=== PATIENT | female | born 1995 | race Caucasian/White ===

== ENCOUNTER 2016-10-14 21:33 | Inpatient (IN) | payer OTHER ==
[~2016-10-14] VITALS: Ht 157.5 cm; Wt 102.5 kg
[~2016-10-14 21:33] MED LIST: ADVIN25050 INH; ALBU0.08 INH; ALBUAER INH; MONT1TAB3 PO
[2016-10-14] MEDS ORDERED: ALBUT/IPRATROP 3MG/0.5MG NEB 3 ML VIAL INH STA (21:51)
[2016-10-14] MEDS ORDERED: ALBUT/IPRATROP 3MG/0.5MG NEB 3 ML VIAL ONE (21:52)
[2016-10-14] MEDS ORDERED: DEXAMETHASONE SOD INJ 10 MG/ML VIAL ONE (21:52)
[2016-10-14] MEDS ORDERED: ALBUT/IPRATROP 3MG/0.5MG NEB 3 ML VIAL INH ONE (22:00)
[2016-10-14] MEDS ORDERED: DEXAMETHASONE SOD INJ 10 MG/ML VIAL IV ONE (22:00)
[2016-10-14 22:06] VITALS: PULSE 94; O2SAT 97
[2016-10-14] MEDS ORDERED: VNTHFA/IN INH (23:09)
[2016-10-14] MEDS ORDERED: MONT1TAB3 PO (23:09)
[2016-10-14] MEDS ORDERED: ALBINS/ INH (23:09)
[2016-10-14] MEDS ORDERED: VITAMIN B PO (23:09)
[2016-10-14] MEDS ORDERED: ASCO1CAP3 PO (23:09)
[2016-10-14] MEDS ORDERED: ECHI80CA PO (23:09)
[2016-10-15] VITALS (10 sets, daily range): BP systolic 109–146; BP diastolic 69–84; PULSE 100–120; TEMP 36.5–37; O2SAT 92–98; Ht 157.5 cm; Wt 102.5 kg
[2016-10-15] MEDS ORDERED: CEFTRIAXONE SOD INJ 1 GM ADDVIAL IV STA (00:05)
[2016-10-15] MEDS ORDERED: AZITHROMYCIN 250 MG TAB PO STA (00:05)
[2016-10-15] MEDS ORDERED: MAGNESIUM SULFATE 1GM / D5W 1 GM BAG IV STA (00:05)
[2016-10-15 00:16] LABS: BASO % 0.1 %; BASO ABS # 0.01 K/uL (0-0.2); COMPLETE YES; EOS % 7.1 %; HEMATOCRIT 35.4 % (37-47); IG% 0.3 %; LYMPH % 18.2 %; LYMPH ABS # 2.24 K/uL (1.2-3.4); MEAN CELL VOLUME 72.8 fL (80-100); MEAN CORPUSCULAR HEMOGLOBIN 22.8 pg (25-34); MEAN CORPUSCULAR HGB CONC 31.4 g/dl (32-36); MEAN PLATELET VOLUME 9.5 fL (7.4-10.4); MONO % 4.1 %; NEUT % 70.2 %; PLATELET COUNT 246 K/uL (130-400); RED BLOOD COUNT 4.86 M/uL (4.2-5.4); WHITE BLOOD COUNT 12.32 K/uL (4.8-10.8)
[2016-10-15] MEDS ORDERED: ONDANSETRON INJ 2 MG/ML 2 ML VIAL IV PRN (00:30)
[2016-10-15] MEDS ORDERED: ACETAMINOPHEN 325 MG TAB PO PRN (00:30)
--- NOTE | 2016-10-15 00:32 | History and Physical ---
History & Physical Date & Time of Service: Oct 15, 2016 at 00:19 Chief Complaint: Trouble Breathing Primary Care Physician: No Doctor, Assigned History of Present Illness Source: patient, partner Harry is a 21 yo asthmatic female who presents w/shortness of breath x 1 week. She denies any coughs, fevers, or other infective signs prior to this. 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 She takes Albuterol as needed and occasionally takes Singulair. She denies taking Flovent. She reports she has been using a nebulizer machine at home over the last week. She has previously had asthma exacerbations which have admitted her into the hospital, but she has never been intubated. 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 Her boyfriend smokes, but tries to smoke outside. While in the ED, she was given Magnesium, an hour long Duoneb tx, a dose of Zithromax, and felt somewhat better. Her oxygen sats when ambulating dropped to 86%. At rest they go up to 96%, but when talking drop to 92%. She also sleeps with her cat on her chest. Past Medical/Surgical History Medical Problems: (1) ACL tear Status: Resolved (2) Asthma Status: Chronic (3) Failure of outpatient treatment Status: Resolved Family History Diabetes mellitus Hypertension Social History Smoking Status: Never Smoker Smokeless Tobacco Use: No Alcohol Use: socially Drug Use: none Marital Status: single, in relationship Occupational Status: [employer] student Immunizations History of Influenza Vaccine: Unknown History of Tetanus Vaccine?: Unknown History of Pneumococcal: Unknown History of Hepatitis B Vaccine: Unknown Multi-Drug Resistant Organisms History of MDRO: No Allergies Coded Allergies: Penicillins (Unverified Adverse Reaction, Unknown, UNKN, 12/22/14) Home Medications Scheduled Ascorbic Acid (Vitamin C), 1 TAB PO DAILY Echinacea (Echinacea), 1 TAB PO DAILY [Vitamin B], 1 TAB PO DAILY Scheduled PRN Albuterol Hfa (Ventolin Hfa), 2 PUFF INH QID PRN for SOB/Wheezing Albuterol Sulf (Proventil 0.083% 2.5MG/3ML), 2.5 MG INH QID PRN for SOB/Wheezing Montelukast Sodium (Singulair), 10 MG PO DAILY PRN for ALLERGIC REACTION Review of Systems See HPI for pertinent positives & negatives. A total of 10 systems reviewed and were otherwise negative. Physical Exam Vital Signs Date Time Temp Pulse Resp B/P (MAP) Pulse Ox O2 Delivery O2 Flow Rate FiO2 10/14/16 23:36 93 Room Air 10/14/16 23:35 86 Room Air 10/14/16 22:35 90 20 100 Nebulizer 10/14/16 22:30 92 Room Air 10/14/16 22:09 98 10/14/16 22:09 92 Room Air 10/14/16 22:06 94 33 97 Room Air 10/14/16 21:35 36.4 106 20 152/102 99 Room Air General Appearance: WD/WN, no apparent distress, + obese Head: normocephalic, atraumatic Eyes: normal inspection, PERRL ENT: hearing grossly normal Neck: supple, no JVD Respiratory/Chest: + wheezing (throughout entire chest) Cardiovascular: regular rate, rhythm, no murmur, normal peripheral pulses Abdomen/GI: normal bowel sounds, non tender, soft Back: no CVA tenderness, no muscle spasm Extremities/Musculoskelatal: no calf tenderness, no pedal edema Neurologic/Psych: alert, normal mood/affect, normal reflexes, oriented x 3 Skin: no rash Diagnostics Laboratory Results Results Past 24 Hours Test 10/15/16 00:00 Range/Units White Blood Count 12.32 4.8-10.8 K/uL Red Blood Count 4.86 4.2-5.4 M/uL Hemoglobin 11.1 12.0-16.0 g/dL Hematocrit 35.4 37-47 % Mean Corpuscular Volume 72.8 80-100 fL Mean Corpuscular Hemoglobin 22.8 25-34 pg Mean Corpuscular Hemoglobin Concent 31.4 32-36 g/dl Platelet Count 246 130-400 K/uL Mean Platelet Volume 9.5 7.4-10.4 fL Neutrophils (%) (Auto) 70.2 % Lymphocytes (%) (Auto) 18.2 % Monocytes (%) (Auto) 4.1 % Eosinophils (%) (Auto) 7.1 % Basophils (%) (Auto) 0.1 % Neutrophils # (Auto) 8.65 1.4-6.5 K/uL Lymphocytes # (Auto) 2.24 1.2-3.4 K/uL Monocytes # (Auto) 0.51 0.11-0.59 K/uL Eosinophils # (Auto) 0.87 0-0.5 K/uL Basophils # (Auto) 0.01 0-0.2 K/uL RDW Standard Deviation 40.5 36.4-46.3 fL RDW Coefficient of Variation 15.1 11.5-14.5 % Immature Granulocyte % (Auto) 0.3 % Immature Granulocyte # (Auto) 0.04 0.00-0.02 K/uL other (mild bibasilar fullness. no consolidation.) Impression Assessment and Plan 21 yo F with acute asthma exacerbation - precipitating factors could be secondary smoke inhalation vs viral exposure from work. Acute asthma exacerbation - Duonebs q3h - Received dexamethasone in ED, will change to IV Solu-Medrol overnight then switch to PO steroids in AM - Likely needs escalating of her home regime to include Flovent - Needs an Rx for a new nebulizer, her old one is from when she was a kid - Pulmicort nebules Leukocytosis - Received a dose of Azithromyicn in ED - Will check a Procalcitonin prior to further Abx admin VTE: Lovenox Code status: Full Dispo: Tele Attending Addendum: I have physically seen and examined this patient, have supervised the medical residents activities, and agree with the H&P as noted above with the following exceptions as noted. The patient denies chest pain, palpitations, cough, lower extremity swelling, vision change, hearing change, sore throat, fevers, chills, sweats, fatigue, nausea, vomiting, abdominal pain, pelvic pain, blood in urine or stool, dysuria , urinary frequency or urgency, lightheadedness, dizziness, headache, memory loss, rash, abnormal bruising or bleeding, imbalance, focal or generalized weakness, numbness or tingling in arms or legs, arthralgias or myalgias, back or neck pain, night sweats, or allergy symptoms. The review of systems is otherwise negative other than for that already noted above, and at least 10 systems have been reviewed. The patient is awake, well-developed and adequately nourished, alert and oriented 3, normocephalic and atraumatic, lying in bed and in no acute distress. HEENT--PERRL, EOMI, mucous membranes and oropharynx dry. Neck--supple, no JVD or bruits, thyroid normal, trachea midline, no adenopathy. Heart--normal S1 and S2, no extra beats, no murmurs, rubs or gallops. Lungs--decreased breath sounds on inspiration, with prolonged expiratory low level wheeze, no respiratory distress, no accessory muscle use. Abdomen--normal bowel sounds and soft, nontender and nondistended, no hernias or masses, no organomegaly and mildly obese. Extremities--no cyanosis, clubbing or edema. There are good distal pulses b/l. Dermatologic--normal skin turgor, normal color, warm and dry, no abnormal lymph nodes, no rash. Neurologic--cranial nerves II through XII grossly intact, motor and sensory examination normal. Rheumatologic--normal range of motion, nontender, muscles and joints. Psychiatric--normal affect. Assessment and Plan: 1. Asthma exacerbation--the patient will be admitted to the telemetry unit for close oxygen monitoring. Place on duonebs every 3 hours while awake and every 2 hours when necessary. IV Solu-Medrol tonight, then changed to by mouth prednisone in the morning. Recommend new home nebulizer unit since her present one is very old, yellowed, from her childhood. Place on Pulmicort Respules 0.5 mg inhaled twice a day. Recommend home nebulizer combination of Pulmicort Respules 0.5 mg inhaled twice a day and albuterol nebulizers every 2 hours when necessary. She did receive a dose of azithromycin IV and emergency department. This would not want to be an infectious process. She does sleep with her cat on her chest, which she does not want to stop, so therefore did recommend continued use of Zyrtec ,which she had been using but stopped when she ran out, or Xyzal. 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 Y/N: Yes Risk Level: Moderate Given or contraindicated: SCD's Social Service Consult None Apply Resident Tracking Resident Involvement: Resident Care Provided Care Provided: Adult Hospital Medicine
--- NOTE | 2016-10-15 00:35 | EMERGENCY ROOM VISIT NOTE ---
History First contact with patient: 21:45 Chief Complaint: RESPIRATORY PROBLEMS Stated Complaint: TROUBLE BREATHING Nursing Triage Summary: Patient reports that she has a hx of asthma, used inhalers at home for SOB with no relief. History of Present Illness The patient is a 21 year old female who presents to the Emergency Room with complaints of cough and wheezing for the past few days that is steadily getting worse. Patient tried home inhalers and nebulizers with no improvement of symptoms. No recent asthma flare. Patient denies fever, productive cough, abdominal pain, vomiting, diarrhea, recent illness. No recent travel. No recent steroids or antibiotics. Review of Systems See HPI for pertinent positives & negatives. A total of 10 systems reviewed and were otherwise negative. 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 Current/Historical Medications Scheduled Ascorbic Acid (Vitamin C), 1 TAB PO DAILY Echinacea (Echinacea), 1 TAB PO DAILY [Vitamin B], 1 TAB PO DAILY Scheduled PRN Albuterol Hfa (Ventolin Hfa), 2 PUFF INH QID PRN for SOB/Wheezing Albuterol Sulf (Proventil 0.083% 2.5MG/3ML), 2.5 MG INH QID PRN for SOB/Wheezing Montelukast Sodium (Singulair), 10 MG PO DAILY PRN for ALLERGIC REACTION Physical Exam Vital Signs Date Time Temp Pulse Resp B/P (MAP) Pulse Ox O2 Delivery O2 Flow Rate FiO2 10/15/16 00:19 98 20 130/71 96 Room Air 10/14/16 23:36 93 Room Air 10/14/16 23:35 86 Room Air 10/14/16 22:35 90 20 100 Nebulizer 10/14/16 22:30 92 Room Air 10/14/16 22:09 98 10/14/16 22:09 92 Room Air 10/14/16 22:06 94 33 97 Room Air 10/14/16 21:35 36.4 106 20 152/102 99 Room Air Physical Exam PHYSICAL EXAM: Vital Signs: Reviewed Nurse's notes. Oxygen saturation was 99% on room air. GENERAL: Patient with audible wheeze unable to speak in full sentences, Alert, oriented and coherent. The patient is not able to speak in complete sentences. NECK: Supple, non-tender. CHEST: Symmetrical expansion. + retractions + accessory muscle use. HEART: Regular rate and normal heart sounds , no murmur, gallop or rub. LUNGS: Breath sounds equal but significantly diminished in intensity on both sides. Bilateral wheezes heard but no rales or pleuritic rub. SKIN: The skin was without rashes, erythema, edema, or bruising. There is no tenting of the skin. Capillary reflex less than 2 seconds. HEAD: Normocephalic atraumatic. EARS: External auditory canals clear, tympanic membranes pearly gaxiola without erythema or effusion bilaterally. EYES: Pupils equal round and reactive to light and accommodation. Conjunctivae without injection, sclerae without icterus. Extraocular movements intact. NOSE: Patent, turbinates without inflammation or discharge. No sinus tenderness. MOUTH: Mucous membranes moist. Pharynx without erythema or exudate. Uvula midline. Airway patent. Tongue does not deviate. ABDOMEN: Positive bowel sounds x 4. Normal tympanic percussion. Soft, nontender, without masses or organomegaly. Bonilla sign negative. No guarding or rebound tenderness. MUSCULOSKELETAL: No muscle atrophy, erythema, or edema noted. NEURO: Patient was alert and oriented to person place and time. Normal sensation to light and sharp touch. No focal neurological deficits. Medical Decision & Procedures Laboratory Results 10/15/16 00:00 Red Blood Count 4.86, Mean Corpuscular Volume 72.8, Mean Corpuscular Hemoglobin 22.8, Mean Corpuscular Hemoglobin Concent 31.4, Mean Platelet Volume 9.5, Neutrophils (%) (Auto) 70.2, Lymphocytes (%) (Auto) 18.2, Monocytes (%) (Auto) 4.1, Eosinophils (%) (Auto) 7.1, Basophils (%) (Auto) 0.1, Neutrophils # (Auto) 8.65, Lymphocytes # (Auto) 2.24, Monocytes # (Auto) 0.51, Eosinophils # (Auto) 0.87, Basophils # (Auto) 0.01 Test 10/15/16 00:00 White Blood Count 12.32 K/uL (4.8-10.8) Red Blood Count 4.86 M/uL (4.2-5.4) Hemoglobin 11.1 g/dL (12.0-16.0) Hematocrit 35.4 % (37-47) Mean Corpuscular Volume 72.8 fL (80-100) Mean Corpuscular Hemoglobin 22.8 pg (25-34) Mean Corpuscular Hemoglobin Concent 31.4 g/dl (32-36) Platelet Count 246 K/uL (130-400) Mean Platelet Volume 9.5 fL (7.4-10.4) Neutrophils (%) (Auto) 70.2 % Lymphocytes (%) (Auto) 18.2 % Monocytes (%) (Auto) 4.1 % Eosinophils (%) (Auto) 7.1 % Basophils (%) (Auto) 0.1 % Neutrophils # (Auto) 8.65 K/uL (1.4-6.5) Lymphocytes # (Auto) 2.24 K/uL (1.2-3.4) Monocytes # (Auto) 0.51 K/uL (0.11-0.59) Eosinophils # (Auto) 0.87 K/uL (0-0.5) Basophils # (Auto) 0.01 K/uL (0-0.2) RDW Standard Deviation 40.5 fL (36.4-46.3) RDW Coefficient of Variation 15.1 % (11.5-14.5) Immature Granulocyte % (Auto) 0.3 % Immature Granulocyte # (Auto) 0.04 K/uL (0.00-0.02) Medications Administered Medications (Trade) Dose Ordered Sig/Kemal Route Start Time Stop Time Status Last Admin Dose Admin Albuterol/ Ipratropium (Duoneb) 12 ml ONE ONCE INH 10/14/16 22:00 10/14/16 22:01 DC 10/14/16 22:06 12 ML Albuterol/ Ipratropium (Duoneb) 3 ml NOW STAT INH 10/14/16 21:51 10/14/16 21:53 DC 10/14/16 21:59 3 ML Dexamethasone Sodium Phosphate (Decadron Inj) 10 mg NOW ONCE IV 10/14/16 22:00 10/14/16 22:01 DC 10/14/16 21:59 10 MG Ceftriaxone Sodium (Rocephin Inj) 1 gm NOW STAT IV 10/15/16 00:05 8/11/17 00:07 DC 10/15/16 00:14 1 GM Azithromycin (Zithromax Tab) 500 mg NOW STAT PO 10/15/16 00:05 10/15/16 00:07 DC 10/15/16 00:15 500 MG Magnesium Sulfate (Magnesium Sulfate) 1 gm NOW STAT IV 10/15/16 00:05 10/15/16 00:07 DC 10/15/16 00:14 1 GM ED Course Prior records/ancillary studies reviewed. Triage Nursing notes reviewed. Additional history obtained from the family. The patient's history was concerning for respiratory difficulties. Differential diagnosis: Etiologies such as infections, reactive airway disease, pneumonia, pneumothorax , COPD, CHF, cardiac ischemia, pulmonary embolism, musculoskeletal, gastrointestinal, as well as others were entertained. Physical examination: As above. ER treatment provided: Hour-long nebulizer, Decadron, magnesium, Rocephin, Zithromax On reassessment the patient felt better. Diagnostic interpretation by me: The labs revealed leukocytosis, mild anemia Imaging studies: Chest x-ray perihilar fullness, no pneumo-thorax or free air per my interpretation Consultation: A consultation was placed with the [facility] hospitalist. The case was discussed and diagnostics were reviewed. The patient was evaluated in the ER for further treatment. This appears to be consistent with status asthmaticus. Patient was still extremely short of breath with wheezing and her walking pulse ox is 86%. She cannot speak in full sentences. She was given multiple medications. She will be evaluated by medicine for possible admission. She was given antibiotics for possible developing pneumonia on x-ray versus poor inspiration.. By the evaluation outlined above emergent etiologies such as CHF, cardiac ischemia, pulmonary embolism, pneumothorax, musculoskeletal, serious bacterial infections , as well as others were deemed relatively unlikely. The pt informed about the findings as listed above. All questions were answered and pleased with the treatment. Case reviewed with my attending. Medical Decision As above Medication Reconcilliation Current Medication List: was personally reviewed by me Blood Pressure Screening Patient's blood pressure: Elevated blood pressure Blood pressure disposition: Elevated BP felt to be situational Impression Primary Impression: Asthma with status asthmaticus in adult Critical Care I have personally spent greater than 30 minutes of critical care time in the direct management of this patient. This includes bedside care, interpretation of diagnostic studies, and testing, discussion with consultants, patient, and family members, and other required patient management activities. This 30 minutes is in excess of all separately billable procedures. Departure Information Dispostion Being Evaluated By Hospitalist Condition FAIR Referrals No Doctor, Assigned (PCP) Patient Instructions My [facility] Problem Qualifiers Primary Impression: Asthma with status asthmaticus in adult Asthma severity: severe persistent Qualified Codes: J45.52 - Severe persistent asthma with status asthmaticus
[2016-10-15 00:42] LABS: PREG INTERNAL NEGATIVE QC NEG CLEAR BACKGROUND; PREG INTERNAL POSITIVE QC POS CONTROL LINE
[2016-10-15 00:43] LABS: ALKALINE PHOSPHATASE 125 U/L (45-117); ALT/SGPT 28 U/L (12-78); AST/SGOT 20 U/L (15-37); BLOOD UREA NITROGEN 9 mg/dl (7-18); BUN/CREATININE RATIO 11.1 (10-20); CALCIUM 8.4 mg/dl (8.5-10.1); CARBON DIOXIDE 23 mmol/L (21-32); CHLORIDE 112 mmol/L (98-107); GLUCOSE 116 mg/dl (70-99); MAGNESIUM 2.1 mg/dl (1.8-2.4); POTASSIUM 3.6 mmol/L (3.5-5.1); SODIUM 142 mmol/L (136-145)
[2016-10-15] MEDS ORDERED: MONTELUKAST SOD 10 MG TAB PO PRN (00:45)
[2016-10-15] MEDS: METHYLPREDNISOLONE IV 60 MG in SYRINGE 0 ML IV SCH ×2 (04:37→09:23)
[2016-10-15] MEDS: ALBUT/IPRATROP 3MG/0.5MG NEB 3 ML VIAL INH SCH ×3 (06:27→15:11)
--- NOTE | 2016-10-15 06:44 | DIAGNOSTIC IMAGING REPORT ---
CHEST 2 VIEWS ROUTINE CLINICAL HISTORY: cough dyspnea COMPARISON STUDY: 12/22/2014 FINDINGS: Mild bronchovascular prominence bilaterally. No focal or consolidative infiltrates. Diaphragms are smooth. Mild cardia megaly. IMPRESSION: 1. Mild/moderate bronchovascular prominence bilaterally. 2. Mild cardiomegaly. The above report was generated using voice recognition software. It may contain grammatical, syntax or spelling errors. Electronically signed by: Alfie Bolanos M.D. 10/15/2016 6:43 AM Dictated Date/Time: 10/15/2016 6:42 AM
--- NOTE | 2016-10-15 07:34 | Medical Student: [facility] ---
Med Student Progress Note Date of Service Oct 15, 2016. Objective Vital Signs Date Time Temp Pulse Resp B/P (MAP) Pulse Ox O2 Delivery O2 Flow Rate FiO2 10/15/16 06:27 113 16 98 Room Air 10/15/16 06:20 115 20 134/84 (101) 95 Room Air 10/15/16 04:00 96 Room Air 10/15/16 03:50 36.9 101 18 109/70 (83) 96 Room Air 10/15/16 01:05 37.0 100 20 122/81 95 Room Air 10/15/16 00:19 98 20 130/71 96 Room Air 10/14/16 23:36 93 Room Air 10/14/16 23:35 86 Room Air 10/14/16 22:35 90 20 100 Nebulizer 10/14/16 22:30 92 Room Air 10/14/16 22:09 98 10/14/16 22:09 92 Room Air 10/14/16 22:06 94 33 97 Room Air 10/14/16 21:35 36.4 106 20 152/102 99 Room Air Laboratory Results Last 24 Hours Test 10/15/16 00:00 White Blood Count 12.32 K/uL Red Blood Count 4.86 M/uL Hemoglobin 11.1 g/dL Hematocrit 35.4 % Mean Corpuscular Volume 72.8 fL Mean Corpuscular Hemoglobin 22.8 pg Mean Corpuscular Hemoglobin Concent 31.4 g/dl Platelet Count 246 K/uL Mean Platelet Volume 9.5 fL Neutrophils (%) (Auto) 70.2 % Lymphocytes (%) (Auto) 18.2 % Monocytes (%) (Auto) 4.1 % Eosinophils (%) (Auto) 7.1 % Basophils (%) (Auto) 0.1 % Neutrophils # (Auto) 8.65 K/uL Lymphocytes # (Auto) 2.24 K/uL Monocytes # (Auto) 0.51 K/uL Eosinophils # (Auto) 0.87 K/uL Basophils # (Auto) 0.01 K/uL RDW Standard Deviation 40.5 fL RDW Coefficient of Variation 15.1 % Immature Granulocyte % (Auto) 0.3 % Immature Granulocyte # (Auto) 0.04 K/uL Sodium Level 142 mmol/L Potassium Level 3.6 mmol/L Chloride Level 112 mmol/L Carbon Dioxide Level 23 mmol/L Anion Gap 7.0 mmol/L Blood Urea Nitrogen 9 mg/dl Creatinine 0.80 mg/dl Est Creatinine Clear Calc Drug Dose 122.9 ml/min Estimated GFR () 120.4 Estimated GFR (Non- 103.9 BUN/Creatinine Ratio 11.1 Random Glucose 116 mg/dl Calcium Level 8.4 mg/dl Magnesium Level 2.1 mg/dl Total Bilirubin 0.1 mg/dl Direct Bilirubin < 0.1 mg/dl Aspartate Amino Transf (AST/SGOT) 20 U/L Alanine Aminotransferase (ALT/SGPT) 28 U/L Alkaline Phosphatase 125 U/L Total Protein 7.4 gm/dl Albumin 3.7 gm/dl Procalcitonin < 0.05 ng/ml Human Chorionic Gonadotropin, Qual NEG Chemistry Specimen Hemolysis Assessment and Plan Assessment and Plan: This is a 21yo female with acute asthma exacerbation in the context of questionably-controlled chronic asthma. Potential precipitating factors are seasonal allergies, viral infection and second-hand smoke exposure. At this time it is difficult to discern if her asthma is exacerbated by allergies or poor baseline control and this will require outpatient follow-up and management. Her O2sat 96% on RA down to 91% when walking at this time and she is feeling much better so likely can be discharged with close PCP follow-up for further management of her asthma in the next week. 1. 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 Leukocytosis, WBC 12 in ED down to 9 this AM, procalcitonin <0.05 -received a dose of azithromyicn in ED -bacterial infection is unlikely given the negative pro-calcitonin -will continue to monitor 3. DVT prophylaxis -lovenox 40mg s.c. daily 4. Discharge planning -location: home/dorm (student at [employer]) -Date: 10/15/16 Discharge planning: home
[2016-10-15] MEDS ORDERED: PNEUMOCOCCAL ADMINISTRATION CHARGE ONE (08:00)
[2016-10-15] MEDS ORDERED: PNEUMOCOCCAL POLYSACCHARIDES 25 MCG/0.5 ML VIAL/SYR IM. ONE (08:00)
[2016-10-15 08:15] LABS: PARTIAL THROMBOPLASTIN RATIO 1.1; PROTHROMBIN TIME (PATIENT) 10.6 SECONDS (9.0-12.0)
--- NOTE | 2016-10-15 08:23 | Family Medicine Progress Note ---
Progress Note Date of Service Oct 15, 2016. Subjective Pt evaluation today including: conversation w/ patient, physical exam, chart review, lab review Voiding: no voiding problems Pt is resting comfortably in bed working on her laptop and talking on her cell phone. Pt explains that her symptoms of SOB have been ongoing for about a week, and that she was sent home from work this week because she was having trouble talking due to her SOB. Pt says she would use her nebulizer treatment up to 1 hour at a time and only receive temporary relief for a few hours. Pt says her SOB would wake her at night, and she would try and walk around and turn on the fan, which would help some but symptoms would return in a few hours. Pt states that her mother earlier this summer and that she relied on her to help her with her asthma. Now that she is gone, she says she's not sure how to do that and is willing to see me in the outpatient setting to f/u on it. Pt says she doesn't like doctors too much since her mother's and hospitalization experience. Constitutional: No fever, No chills, No sweats Respiratory: + wheezing, + dyspnea on exertion, No cough, No sputum Cardiovascular: No chest pain, No orthopnea, No edema Objective Physical Exam General Appearance: WD/WN, no apparent distress, + obese Eyes: normal inspection, PERRL, EOMI Respiratory/Chest: chest non-tender, no respiratory distress, no accessory muscle use, + wheezing Cardiovascular: no edema, no gallop, no murmur, + tachycardia Abdomen: normal bowel sounds, non tender, soft Extremities: normal range of motion, normal inspection, no pedal edema Neurologic/Psychiatric: alert, normal mood/affect, oriented x 3 Assessment and Plan 21 F presents to ED for SOB x1wk, with chronic asthma poorly controlled/non compliant Acute Asthma exacerbation Microcytic anemia Leukocytosis - pro hortensia neg - afebrile - improving on tx for asthma - DC antibiotic Azythromycin VTE: Lovenox Code status: Full Dispo: Tele Resident Tracking Resident Involvement: Resident Care Provided Care Provided: Adult Hospital Medicine
[2016-10-15] MEDS ORDERED: ENOXAPARIN 40 MG/0.4 ML SYR SC SCH (09:00)
[2016-10-15] MEDS ORDERED: VNTHFA/IN INH (14:06)
[2016-10-15] MEDS ORDERED: FLUT0.15 NAE (14:06)
[2016-10-15] MEDS ORDERED: PRED10TA PO (14:06)
[2016-10-15] MEDS ORDERED: FLVHFA110 INH (14:06)
--- NOTE | 2016-10-15 14:08 | Discharge Instructions ---
Discharge Instructions Date of Service Oct 15, 2016. Admission Reason for Admission: Acute Asthma Exacerbation Discharge Discharge Diagnosis / Problem: Asthma exacerbation Discharge Goals Goal(s): Decrease discomfort, Improve function, Improve disease control Activity Recommendations Activity Limitations: as noted below (take it easy until I see you in the office next week. overdoing it could actually make you get worse in the short term) . Current Hospital Diet Patient's current hospital diet: Regular Diet Discharge Diet Recommended Diet: Regular Diet Pending Studies Studies pending at discharge: no Medical Emergencies . Who to Call and When: Medical Emergencies: If at any time you feel your situation is an emergency, please call 911 immediately. . Non-Emergent Contact Non-Emergency issues call your: Primary Care Provider . . "Provider Documentation" section prepared by Faiza Bennett. . VTE Core Measure Inpt VTE Proph given/why not?: SCD's
--- NOTE | 2016-10-15 15:44 | Discharge Summary ---
Discharge Summary Date of Service Oct 15, 2016. (Faiza Bennett M.D.) Discharge Summary Admission Date: Oct 15, 2016 at 00:19 Discharge Date: Oct 15, 2016 Discharge Disposition: Home Principal Diagnosis: Acute Asthma exacerbation Immunizations: Have You Had Influenza Vaccine: Unknown History of Tetanus Vaccine?: Unknown History of Pneumococcal: Unknown History of Hepatitis B Vaccine: Unknown (Faiza Bennett M.D.) Medication Reconciliation New Medications: Fluticasone Propionate (Flovent Hfa) 120 Puffs/62188 Mcg Aero 2 PUFFS INH BID for 30 Days, #1 INHALER 2 Refills Fluticasone Propionate (Nasal) (Flonase Allergy Relief) 50 Mcg/Act Spr 2 PUFFS ANA BID, #1 BTL 0 Refills Prednisone (Prednisone) 10 Mg Tab 10 MG PO UD, #42 TAB 6 PO x2days 5 PO x2days 4 PO x2days 3 PO x2days 2 PO x2days 1 PO x2days Continued Medications: Albuterol Hfa (Ventolin Hfa) 200 Puffs/28279 Mcg Aers 2 PUFF INH QID PRN for SOB/Wheezing, #1 INHALER 1 Refill (This prescription has been renewed) Ascorbic Acid (Vitamin C) 500 Mg Cap 1 TAB PO DAILY Echinacea (Echinacea) Unknown Strength Cap 1 TAB PO DAILY Montelukast Sodium (Singulair) 10 Mg Tab 10 MG PO DAILY PRN for ALLERGIC REACTION, TAB [Vitamin B] () 1 TAB PO DAILY Discontinued Medications: Albuterol Sulf (Proventil 0.083% 2.5MG/3ML) 2.5 Mg/3 Ml Nebu 2.5 MG INH QID PRN for SOB/Wheezing, EA Discharge Exam Review of Systems: Constitutional: No fever, No chills, No sweats Respiratory: No cough, No sputum, No wheezing Cardiovascular: No chest pain, No edema, No palpitations Abdomen: No pain, No nausea, No vomiting Physical Exam: General Appearance: WD/WN, no apparent distress Eyes: normal inspection, PERRL, EOMI Respiratory/Chest: chest non-tender, no respiratory distress, no accessory muscle use, + wheezing (mild wheezing heard b/l) Cardiovascular: regular rate, rhythm, no edema, no gallop, no JVD, no murmur Abdomen / GI: normal bowel sounds, non tender, soft Extremities: normal inspection, normal range of motion Neurologic/Psychiatric: alert, normal mood/affect, oriented x 3 Skin: normal color, warm/dry, no rash (Faiza Bennett M.D.) Hospital Course 21yo female presented with acute asthma exacerbation in the context of poorly- controlled chronic asthma. Pt was diagnosed with asthma since she was a child. Discussed with pt her triggers including seasonal allergies, pet cat, and second -hand smoke exposure. At this time it is difficult to discern if her asthma is exacerbated by allergies or poor baseline control and this will require outpatient follow-up and management. Her O2sat 96% on RA down to 91% when walking today, she states she is feeling much better so likely can be discharged with close PCP follow-up for further management of her asthma in the next week. 1. Acute asthma exacerbation -she received dexamethasone in the ED and IV methylprednisolone overnight -transitioned to PO prednisone 60mg PO daily this AM with taper as follows: 60mg x3days, 50mg x3days, 40mg x3days, 30mg x3days, 20mg x3days, 10mg x3days. -Prescribed fluticasone ICS to alleviate allergic symptoms likely contributing to her asthma. -Duonebs given q3h. 2. Leukocytosis -WBC 12 in ED yesterday down to 9 this AM, procalcitonin <0.05 -received a dose of azithromyicn in ED -bacterial infection is unlikely given the negative pro-calcitonin. 3. DVT prophylaxis -lovenox 40mg s.c. daily _ Total Time Spent: Greater than 30 minutes This includes examination of the patient, discharge planning, medication reconciliation, and communication with other providers. (Faiza Bennett M.D.) Resident Physician Supervision Note: I interviewed and examined the patient. Discussed with Dr. Bennett and agree with findings and plan as documented in the note. Any exceptions or clarifications are listed here: None Documented By: Jonathan Sesay feeling better walked the halls doing ok 93--90% on room air but feeling much better vitals noted nad breathing unlabored faint wheeze but good air entry asthma exacerbation - appearing allergic > other possible cause -stable for home, discussed rest until more recovery, wrote to be off work -prednisone -flovent, flonase, singulair for now pt/family expressed understanding set up to see dr bennett in office early next week (Jonathan Sesay D.O.) Discharge Instructions Please refer to the electronic Patient Visit Report (Discharge Instructions) for additional information. (Faiza Bennett M.D.) Additional Copies To Faiza Bennett M.D.
== END 2016-10-15 15:30 | disposition home or self-care (01) | DRG 203 ==
LOC: C.EDB 21:34 → C.2T 10-15 00:19 → ENRESERV 10-15 00:29
PROVIDERS: ADMIT Hospitalist; ATTEND Family Medicine
DX: J45.901 Unspecified asthma with (acute) exacerbation (principal); Z77.22 Contact with and (suspected) exposure to environmental tobacco smoke (acute) (chronic); D50.9 Iron deficiency anemia, unspecified; D72.829 Elevated white blood cell count, unspecified; Z88.0 Allergy status to penicillin; Z83.3 Family history of diabetes mellitus; Z82.49 Family history of ischemic heart disease and other diseases of the circulatory system

== ENCOUNTER 2016-11-15 07:12 | Emergency (ER) | payer OTHER ==
[~2016-11-15] VITALS: Ht 157.5 cm; Wt 107.2 kg
[~2016-11-15 07:12] MED LIST changes: -ADVIN25050 INH; -ALBU0.08 INH; -ALBUAER INH; +ASCO1CAP3 PO; +ECHI80CA PO; +FLUT0.15 NAE; +FLVHFA110 INH; +PRED10TA PO; +VITAMIN B PO; +VNTHFA/IN INH
[2016-11-15 07:15] VITALS: TEMP 36.7; Ht 157.5 cm; Wt 107.2 kg
[2016-11-15] MEDS ORDERED: ALBUT/IPRATROP 3MG/0.5MG NEB 3 ML VIAL INH ONE (07:45)
[2016-11-15] MEDS ORDERED: B-COTAB18 PO (07:49)
[2016-11-15] MEDS ORDERED: LEVO5TAB7 PO (07:49)
[2016-11-15 07:53] VITALS: PULSE 84; O2SAT 95
[2016-11-15] MEDS ORDERED: METHYLPREDNISOLONE 125 MG VIAL IV STA (07:54)
[2016-11-15 08:17] LABS: POINT OF CARE TROPONIN I < 0.030 ng/ml (0-0.045)
[2016-11-15 08:17] LABS: BASO % 0.2 %; BASO ABS # 0.02 K/uL (0-0.2); EOS % 10.6 %; HEMATOCRIT 36.2 % (37-47); IG% 0.3 %; LYMPH % 33.4 %; LYMPH ABS # 2.87 K/uL (1.2-3.4); MEAN CELL VOLUME 71.7 fL (80-100); MEAN CORPUSCULAR HEMOGLOBIN 23.2 pg (25-34); MEAN CORPUSCULAR HGB CONC 32.3 g/dl (32-36); MEAN PLATELET VOLUME 9.7 fL (7.4-10.4); NEUT % 45.5 %; PARTIAL THROMBOPLASTIN RATIO 1.1; PLATELET COUNT 265 K/uL (130-400); PROTHROMBIN TIME (PATIENT) 10.3 SECONDS (9.0-12.0); RED BLOOD COUNT 5.05 M/uL (4.2-5.4); WHITE BLOOD COUNT 8.59 K/uL (4.8-10.8)
[2016-11-15 08:49] LABS: COMPLETE YES; MICROCYTOSIS PRESENT
--- NOTE | 2016-11-15 08:54 | DIAGNOSTIC IMAGING REPORT ---
CHEST 2 VIEWS ROUTINE CLINICAL HISTORY: Shortness of breath. COMPARISON STUDY: Chest radiograph October 14, 2016. FINDINGS: Lung volumes are normal. No pneumothorax or pleural effusion is present. There is no consolidation to suggest pneumonia. Pulmonary vascularity is normal. There is mild enlargement of the cardiac silhouette. IMPRESSION: 1. No acute cardiopulmonary findings. 2. Mild enlargement of the cardiac silhouette. Electronically signed by: Nam Nagy M.D. 11/15/2016 8:52 AM Dictated Date/Time: 11/15/2016 8:45 AM
[2016-11-15] MEDS ORDERED: PRED20TA PO (09:16)
--- NOTE | 2016-11-15 09:19 | EMERGENCY ROOM VISIT NOTE ---
History First contact with patient: 07:21 Chief Complaint: RESPIRATORY PROBLEMS Stated Complaint: ASTHMA SYMPTOMS,DIFFICULTY BREATHING Nursing Triage Summary: pt reports having excerbation of asthma started yesterday reports inhaler is out and has appt with new has not gotten script yet and radha dickerson not helping History of Present Illness The patient is a 21 year old female who presents to the Emergency Room with complaints of asthma exacerbation that started yesterday. The patient is in the process of getting set up with a new physician and has an appointment on November 19. She states she is currently out of her albuterol. She is using Flonase and Xyzal. She also states that she used her nebulizer without any relief. The patient also states that she has been getting some pain in the left upper chest which goes into her left shoulder and arm. The patient denies any tobacco use, control pills, recent travel. The patient denies any history of clots. The patient states that her symptoms are similar to her other asthma exacerbations. Review of Systems 10 system review was performed and was negative unless stated otherwise history of present illness. Past Medical/Surgical History Medical Problems: (1) ACL tear (2) Asthma (3) Failure of outpatient treatment Family History Diabetes mellitus Hypertension Social History Smoking Status: Never Smoker Drug Use: none Marital Status: single, in relationship Housing Status: lives with friends Occupation Status: [employer] Current/Historical Medications Scheduled Ascorbic Acid (Vitamin C), 1 TAB PO DAILY B-Complex Vitamins (Vitamin B Complex), 1 TAB PO DAILY Echinacea (Echinacea), 1 TAB PO DAILY Fluticasone Propionate (Nasal) (Flonase Allergy Relief), 2 PUFFS ANA BID Levocetirizine Dihydrochloride (Xyzal Allergy 24Hr), 5 MG PO DAILY Scheduled PRN Albuterol Hfa (Ventolin Hfa), 2 PUFF INH QID PRN for SOB/Wheezing Physical Exam Vital Signs Date Time Temp Pulse Resp B/P (MAP) Pulse Ox O2 Delivery O2 Flow Rate FiO2 11/15/16 08:14 74 11/15/16 07:59 81 18 126/67 100 Nebulizer 11/15/16 07:53 84 18 95 Room Air 11/15/16 07:15 94 Room Air 11/15/16 07:15 36.7 95 20 143/90 95 Room Air Physical Exam GENERAL: 21-year-old female appears in no acute distress. MENTAL Status: Alert and oriented 3. EARS: Canals clear. TMs without fluid level noted. NECK: Supple, no lymphadenopathy noted. No carotid bruits noted. LUNGS: Both inspiratory and expiratory wheezing noted bilaterally. Poor air exchange bilaterally. CARDIAC: Regular rate and rhythm without murmur. Pulses is full and equal throughout. ABDOMEN: Positive bowel sounds all 4 quadrants. Soft, nontender to palpation without organomegaly or masses. SKIN: No rashes noted Medical Decision & Procedures ER Provider Diagnostic Interpretation: CHEST 2 VIEWS ROUTINE CLINICAL HISTORY: Shortness of breath. COMPARISON STUDY: Chest radiograph October 14, 2016. FINDINGS: Lung volumes are normal. No pneumothorax or pleural effusion is present. There is no consolidation to suggest pneumonia. Pulmonary vascularity is normal. There is mild enlargement of the cardiac silhouette. IMPRESSION: 1. No acute cardiopulmonary findings. 2. Mild enlargement of the cardiac silhouette. Electronically signed by: Nam Nagy M.D. 11/15/2016 8:52 AM Laboratory Results 11/15/16 07:55 Red Blood Count 5.05, Mean Corpuscular Volume 71.7, Mean Corpuscular Hemoglobin 23.2, Mean Corpuscular Hemoglobin Concent 32.3, Mean Platelet Volume 9.7, Neutrophils (%) (Auto) 45.5, Lymphocytes (%) (Auto) 33.4, Monocytes (%) (Auto) 10.0, Eosinophils (%) (Auto) 10.6, Basophils (%) (Auto) 0.2, Neutrophils # (Auto ) 3.90, Lymphocytes # (Auto) 2.87, Monocytes # (Auto) 0.86, Eosinophils # (Auto ) 0.91, Basophils # (Auto) 0.02 Test 11/15/16 07:55 11/15/16 07:58 White Blood Count 8.59 K/uL (4.8-10.8) Red Blood Count 5.05 M/uL (4.2-5.4) Hemoglobin 11.7 g/dL (12.0-16.0) Hematocrit 36.2 % (37-47) Mean Corpuscular Volume 71.7 fL (80-100) Mean Corpuscular Hemoglobin 23.2 pg (25-34) Mean Corpuscular Hemoglobin Concent 32.3 g/dl (32-36) Platelet Count 265 K/uL (130-400) Mean Platelet Volume 9.7 fL (7.4-10.4) Neutrophils (%) (Auto) 45.5 % Lymphocytes (%) (Auto) 33.4 % Monocytes (%) (Auto) 10.0 % Eosinophils (%) (Auto) 10.6 % Basophils (%) (Auto) 0.2 % Neutrophils # (Auto) 3.90 K/uL (1.4-6.5) Lymphocytes # (Auto) 2.87 K/uL (1.2-3.4) Monocytes # (Auto) 0.86 K/uL (0.11-0.59) Eosinophils # (Auto) 0.91 K/uL (0-0.5) Basophils # (Auto) 0.02 K/uL (0-0.2) RDW Standard Deviation 38.0 fL (36.4-46.3) RDW Coefficient of Variation 14.5 % (11.5-14.5) Immature Granulocyte % (Auto) 0.3 % Immature Granulocyte # (Auto) 0.03 K/uL (0.00-0.02) Microcytosis PRESENT Prothrombin Time 10.3 SECONDS (9.0-12.0) Prothromb Time International Ratio 1.0 (0.9-1.1) Activated Partial Thromboplast Time 28.0 SECONDS (21.0-31.0) Partial Thromboplastin Ratio 1.1 Bedside D-Dimer 300 ng/mlFEU (0-450) Bedside Troponin I < 0.030 ng/ml (0-0.045) Medications Administered Medications (Trade) Dose Ordered Sig/Kemal Route Start Time Stop Time Status Last Admin Dose Admin Albuterol/ Ipratropium (Duoneb) 12 ml ONE ONCE INH 11/15/16 07:45 11/15/16 07:46 DC 11/15/16 07:49 12 ML Methylprednisolone Sodium Succinate (Solu-Medrol IV) 125 mg NOW STAT IV 11/15/16 07:54 11/15/16 07:55 DC 11/15/16 08:10 125 MG ECG Indication: SOB/dyspnea Rhythm: normal sinus Findings: no acute ischemic change ED Course The patient was evaluated. IV access was obtained. The patient was placed on a monitor and continuous pulse ox. EKG was ordered and interpreted as above without any acute findings. CBC differential, coags, renal profile, LFTs and lipase levels, pointing care d-dimer and troponin was ordered. Chest x-ray was ordered and interpreted by the radiologist and myself as above without any acute findings. The patient was given Solu-Medrol 125 mg IV. The patient was given hour-long DuoNeb. Labs are reviewed. D-dimer and troponin were within normal limits. Remainder labs are unremarkable. The patient was reevaluated and was moving air much better. She still had respiratory wheezes bilaterally. She stated she was feeling much better. The patient was given a Ventolin inhaler to take home with her. The patient was discharged home in stable condition. Medical Decision Differential diagnosis include PE, acute AR, asthma exacerbation, allergic reaction, pneumonia [place] Drug Monitoring Program Search Results: patient reviewed within database Medication Reconcilliation Current Medication List: was personally reviewed by me Blood Pressure Screening Patient's blood pressure: Normal blood pressure Impression Primary Impression: Acute asthma exacerbation Departure Information Dispostion Home / Self-Care Condition GOOD Prescriptions Prednisone (Prednisone) 20 Mg Tab 0 PO DAILY, #18 TAB 3 DAILY FOR 3 DAYS, THEN 2 DAILY FOR 3 DAYS, THEN 1 DAILY FOR 3 DAYS. Prov: Lucy Bolanos, HENOK 11/15/16 Referrals No Doctor, Assigned (PCP) Forms HOME CARE DOCUMENTATION FORM, IMPORTANT VISIT INFORMATION, WORK / SCHOOL INSTRUCTIONS Patient Instructions Asthma - [facility], [facility] Additional Instructions Continue all medications as prescribed. Use a Ventolin inhaler 2 puffs every 4 hours as needed for chest tightness. Also take prednisone as directed. Start this tomorrow. Keep scheduled appointment with [facility]. If symptoms worsen in the interim, return to ER. Problem Qualifiers Primary Impression: Acute asthma exacerbation Asthma severity: unspecified severity Qualified Codes: J45.901 - Unspecified asthma with (acute) exacerbation
[2016-11-15] MEDS ORDERED: ALBUTEROL HFA 8 GM INHALER INH STA (09:27)
[2016-11-15 09:35] VITALS: BP 122/75; PULSE 86; O2SAT 99
[2016-11-15] MEDS ORDERED: ALBUTEROL HFA 8 GM INHALER INH SCH (11:00)
== END 2016-11-15 09:37 | disposition home or self-care (01) ==
LOC: C.EDB 07:13
DX: J45.901 Unspecified asthma with (acute) exacerbation (principal); Z79.899 Other long term (current) drug therapy; Z87.828 Personal history of other (healed) physical injury and trauma; Z82.49 Family history of ischemic heart disease and other diseases of the circulatory system; Z83.3 Family history of diabetes mellitus

== ENCOUNTER 2016-12-20 18:24 | Emergency (ER) | payer OTHER ==
[~2016-12-20] VITALS: Ht 160 cm; Wt 108.9 kg
[~2016-12-20 18:24] MED LIST changes: +B-COTAB18 PO; -FLVHFA110 INH; +LEVO5TAB7 PO; -MONT1TAB3 PO; -PRED10TA PO; +PRED20TA PO; -VITAMIN B PO
[2016-12-20 18:32] VITALS: TEMP 36.7; Ht 160 cm; Wt 108.9 kg
[2016-12-20 19:08] VITALS: BP 105/59; PULSE 89; O2SAT 99
--- NOTE | 2016-12-20 20:18 | EMERGENCY ROOM VISIT NOTE ---
History Report prepared by Beau: Isael Bustos Under the Supervision of: Dr. Diaz Ocasio M.D. First contact with patient: 18:29 Chief Complaint: SHORTNESS OF BREATH Stated Complaint: SOB History of Present Illness The patient is a 21 year old female who presents to the Emergency Room with complaints of shortness of breath that began yesterday. She has a past medical history of asthma and believes that her symptoms currently are an exacerbation of her asthma. Along with her shortness of breath, she is also experiencing a tightness in her chest. She states this is common when she gets an asthma exacerbation. She denies any cough, fevers, or rhinorrhea. Earlier today, she used a Nebulizer treatment. Nursing staff noted that the paramedics in the ambulance heard bilateral wheezing in the patient, so she received a DuoNeb and Solu-Medrol 125 mg IV. She denies any leg pain or swelling. She does not have a history of blood clots. She is currently on control. Source of History: patient Onset: yesterday Position: other (Respiratory System) Symptom Intensity: moderate Quality: other (Shortness of breath) Timing: constant Associated Symptoms: + chest pain (tightness), No fevers, No cough Review of Systems See HPI for pertinent positives & negatives. A total of 10 systems reviewed and were otherwise negative. 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 Current/Historical Medications Scheduled Ascorbic Acid (Vitamin C), 1 TAB PO DAILY B-Complex Vitamins (Vitamin B Complex), 1 TAB PO DAILY Echinacea (Echinacea), 1 TAB PO DAILY Fluticasone Propionate (Nasal) (Flonase Allergy Relief), 2 PUFFS ANA BID Levocetirizine Dihydrochloride (Xyzal Allergy 24Hr), 5 MG PO DAILY Scheduled PRN Albuterol Hfa (Ventolin Hfa), 2 PUFF INH QID PRN for SOB/Wheezing Allergies Coded Allergies: Cat Dander (Verified Allergy, Severe, SHORTNESS OF BREATH, 12/20/16) Dog Dander (Verified Allergy, Severe, SHORTNESS OF BREATH, 12/20/16) Shrimp (Verified Allergy, Severe, lips itch and swell, 12/20/16) Penicillins (Verified Adverse Reaction, Unknown, UNKN, 12/20/16) Physical Exam Vital Signs Date Time Temp Pulse Resp B/P (MAP) Pulse Ox O2 Delivery O2 Flow Rate FiO2 12/20/16 19:08 89 22 105/59 99 Room Air 12/20/16 18:32 100 Room Air 12/20/16 18:32 36.7 102 24 174/102 100 Room Air Physical Exam Constitutional: Vital signs reviewed. Eyes: Pupils are equal round reactive to light. Conjunctiva are noninjected. ENT: Pharynx is clear without erythema or exudate. Mucous membranes are moist. Neck supple without meningeal signs. Respiratory: Clear to auscultation bilaterally. Breath sounds are equal bilaterally. Cardiovascular: Regular rate and rhythm. No rubs or gallops. GI: Soft, nondistended and nontender. Bowel sounds are present. Musculoskeletal: No peripheral edema. No lower extremity tenderness. Integumentary: No cyanosis. Neurological: The patient is awake and alert. No focal deficits. Psychiatric: Normal affect. Medical Decision & Procedures ED Course 1828: The patient was evaluated in room B3B. A complete history and physical exam was performed. 1905: The patient feels fine at this time. She has a very small amount of wheezing on exam, but it is not significant. Her blood pressure has also improved. 1914: Upon reevaluation, the patient appeared to have improvement of her symptoms. I discussed tonight's findings with her. She verbalized agreement of the treatment plan. She was discharged home. Medical Decision This is a 21-year-old female who presents with difficulty breathing. Differential diagnosis includes asthma exacerbation, pneumonia, pulmonary embolism. I did perform a limited focused review of portions of the patient's old chart on the electronic medical record. The patient was seen here in the ER on November 15 for an asthma exacerbation. I did evaluate the patient as noted above. The patient was reported to have wheezing by the paramedics. She was given a DuoNeb and Solu-Medrol prior to arrival. On my examination the patient has no wheezing and appears well. She is not hypoxic. She states her symptoms are consistent with her prior asthma exacerbations. I did observe her here in the emergency department. When I did reexamine her her blood pressure did come down and she did have some slight scattered wheezing on exam. At this time her symptoms seem most consistent with an asthma exacerbation. She does complain of chest tightness but she does state that this is common when she has an asthma exacerbation. She was advised follow closely with her doctor. She was discharged in good condition. Medication Reconcilliation Current Medication List: was personally reviewed by me Blood Pressure Screening Patient's blood pressure: Elevated blood pressure Blood pressure disposition: Referred to PCP Impression Primary Impression: Asthma exacerbation Additional Impression: Elevated blood pressure reading Scribe Attestation The scribe's documentation has been prepared under my direct and personally reviewed by me in its entirety. I confirm that the note above accurately reflects all work, treatment, procedures, and medical decision making performed by me. Departure Information Dispostion Home / Self-Care Referrals [facility] Forms HOME CARE DOCUMENTATION FORM, IMPORTANT VISIT INFORMATION Patient Instructions Asthma - [facility], ED Hypertension Poss, My [facility] Additional Instructions You have been examined and treated today on an emergency basis only. This is not a substitute for, or an effort to provide, complete comprehensive medical care. It is impossible to recognize and treat all injuries or illnesses in a single emergency department visit. It is therefore important that you follow up closely with your physician. Call as soon as possible for an appointment. Return for worsening symptoms or if you develop fever, vomiting, or any other concerning symptoms. Problem Qualifiers Primary Impression: Asthma exacerbation Asthma severity: unspecified severity Asthma persistence: unspecified Qualified Codes: J45.901 - Unspecified asthma with (acute) exacerbation
== END 2016-12-20 19:16 | disposition home or self-care (01) ==
LOC: EDBD 18:24 → C.EDB 18:26
DX: J45.901 Unspecified asthma with (acute) exacerbation (principal); R03.0 Elevated blood-pressure reading, without diagnosis of hypertension; Z79.3 Long term (current) use of hormonal contraceptives; Z83.3 Family history of diabetes mellitus; Z82.49 Family history of ischemic heart disease and other diseases of the circulatory system

== ENCOUNTER 2017-01-17 13:51 | Emergency (ER) | payer OTHER ==
[~2017-01-17] VITALS: Ht 157.5 cm; Wt 102.0 kg
[~2017-01-17 13:51] MED LIST changes: -PRED20TA PO
[2017-01-17 13:54] VITALS: TEMP 36.5; Ht 157.5 cm; Wt 102.0 kg
[2017-01-17] MEDS ORDERED: ALBUT/IPRATROP 3MG/0.5MG NEB 3 ML VIAL INH STA (13:54)
--- NOTE | 2017-01-17 13:56 | EMERGENCY ROOM VISIT NOTE ---
History Report prepared by Beau: Pamela Grayson Under the Supervision of: Dr. Miguel Whaley D.O. 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 She reports she was on her way to an exam this morning, when she became increasingly short of breath and her breathing became "wheezy". She admits to a history of asthma but states she used "all of her breathing treatments this past weekend", so she had nothing to use when her breathing worsened this morning. She also complains of a productive cough. The last time she used steroids for her breathing was last month. She denies any recent fevers. She does have minor chest pain in the left side of her chest. She denies any recent pain or swelling in her legs. The patient notes she has seen a Rod Machine Operator in the past, but states no known etiology was found. 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 A total of 10 systems reviewed and were otherwise negative. Past Medical & Surgical Medical Problems: (1) ACL tear (2) Asthma (3) Failure of outpatient treatment Family History Diabetes mellitus Hypertension Social History Smoking Status: Never Smoker Drug Use: none Marital Status: single, in relationship Housing Status: lives with friends Occupation Status: [employer] student Current/Historical Medications Scheduled Albuterol Hfa (Ventolin Hfa), 1 PUFF INH DAILY Ascorbic Acid (Vitamin C), 1 TAB PO DAILY B-Complex Vitamins (Vitamin B Complex), 1 TAB PO DAILY Echinacea (Echinacea), 1 TAB PO DAILY Fluticasone Propionate (Nasal) (Flonase Allergy Relief), 2 PUFFS ANA BID Levocetirizine Dihydrochloride (Xyzal Allergy 24Hr), 5 MG PO DAILY Prednisone (Prednisone Tab), 40 MG PO DAILY Scheduled PRN Albuterol Hfa (Ventolin Hfa), 2 PUFF INH QID PRN for SOB/Wheezing Allergies Coded Allergies: Cat Dander (Verified Allergy, Severe, SHORTNESS OF BREATH, 12/20/16) Dog Dander (Verified Allergy, Severe, SHORTNESS OF BREATH, 12/20/16) Shrimp (Verified Allergy, Severe, lips itch and swell, 12/20/16) Penicillins (Verified Adverse Reaction, Unknown, UNKN, 12/20/16) Physical Exam Vital Signs Date Time Temp Pulse Resp B/P (MAP) Pulse Ox O2 Delivery O2 Flow Rate FiO2 01/17/17 15:01 83 18 124/91 100 01/17/17 13:56 90 01/17/17 13:54 100 Room Air 01/17/17 13:54 36.5 100 20 143/82 100 Room Air Physical Exam GENERAL: Patient is awake, alert, in no acute distress patient is resting comfortably and showing no signs of anxiety EYES: The conjunctivae are clear. The pupils are round and reactive. EARS, NOSE, MOUTH AND THROAT: The nose is without any evidence of any deformity. Mucous membranes are moist tongue is midline NECK: The neck is nontender and supple. RESPIRATORY: Faint expiratory wheezing in both upper lung menendez, no conversational dyspnea or tachypnea appreciated CARDIOVASCULAR: Regular rate and rhythm noted there no murmurs rubs or gallops normal S1 normal S2 GASTROINTESTINAL: The abdomen is soft. Bowel sounds are present in all quadrants. Abdomen is nontender MUSCULOSKELETAL/EXTREMITIES: There is no evidence of gross deformity full range of motion is noted in the hips and shoulders SKIN: There is no obvious evidence of any rash. There are no petechiae, pallor or cyanosis noted. NEUROLOGIC: Patient is awake alert and oriented x3 Medical Decision & Procedures ER Provider Diagnostic Interpretation: Radiology results as stated below per my review and radiologist interpretation: CHEST ONE VIEW PORTABLE CLINICAL HISTORY: cough COMPARISON STUDY: 11/15/2016 FINDINGS: The cardiac and mediastinal contours are normal. There is no evidence of focal pulmonary consolidation. There is no evidence of failure. No pleural effusions are visualized. IMPRESSION: No active disease in the chest. Electronically signed by: Amador Cartwright M.D. 01/17/2017 2:26 PM Medications Administered Medications (Trade) Dose Ordered Sig/Kemal Route Start Time Stop Time Status Last Admin Dose Admin Prednisone (PredniSONE TAB) 60 mg NOW STAT PO 01/17/17 13:54 01/17/17 13:56 DC 01/17/17 13:54 60 MG Albuterol/ Ipratropium (Duoneb) 3 ml NOW STAT INH 01/17/17 13:54 01/17/17 13:56 DC 01/17/17 13:54 3 ML ED Course 1354: The patient was evaluated in room C9. A complete history and physical examination were performed. 1354: DuoNeb 3 ml INH, Prednisone 60 mg PO. 1445: I reevaluated the patient. She is feeling better and resting comfortably. I discussed her results and discharge instructions and she verbalized complete understanding and agreement. Medical Decision Prior records/ancillary studies reviewed. Triage Nursing notes reviewed. Additional history obtained from the family. The patient's history was concerning for respiratory difficulties. Differential diagnosis: Etiologies such as infections, reactive airway disease, pneumonia, pneumothorax , COPD, CHF, cardiac ischemia, pulmonary embolism, musculoskeletal, gastrointestinal, as well as others were entertained. The patient is a 21-year-old female who presented to the emergency department for an evaluation of shortness of breath. The patient has a history of asthma and has had bronchospasm and wheezing consistent with her previous episodes of asthma. The patient used a bronchodilator earlier. She was given a treatment on the way to the emergency department and given one while she was in the emergency department. She is had symptoms since last Tuesday and I feel there may be a significant amount of inflammation occurring so she was given a dose of steroids in the emergency department. Chest x-ray did not reveal any signs of pneumonia. The patient does not a fever. I do not feel this represents an infectious cause. The patient was encouraged to rest and avoid any strenuous activity. On subsequent reevaluation she was feeling much better. Her lung sounds were normal. Her oxygen saturation was acceptable. She was encouraged to follow-up with [facility] this is possible but return to the emergency apartment immediately if symptoms change worsen or the need arises. Medication Reconcilliation Current Medication List: was personally reviewed by me Blood Pressure Screening Patient's blood pressure: Elevated blood pressure Blood pressure disposition: Elevated BP felt to be situational Impression Primary Impression: Acute asthma exacerbation Scribe Attestation The scribe's documentation has been prepared under my direction and personally reviewed by me in its entirety. I confirm that the note above accurately reflects all work, treatment, procedures, and medical decision making performed by me. Departure Information Dispostion Home / Self-Care Prescriptions Albuterol Hfa (VENTOLIN HFA) 200 Puffs/94152 Mcg Aers 1 PUFF INH DAILY, #1 INHALER Prov: Miguel Whaley, DO 01/17/17 Prednisone (Prednisone Tab) 20 Mg Tab 40 MG PO DAILY, #10 TAB Prov: Miguel Whaley, DO 01/17/17 Referrals [facility] (PCP) Patient Instructions ED Asthma Acute Ch, [facility] Additional Instructions Continue all medications as prescribed. Follow-up with [facility] this week for reevaluation and to discuss a medication plan. Return the emergency Department immediately symptoms change worsen or the need arises. Problem Qualifiers Primary Impression: Acute asthma exacerbation Asthma severity: mild Asthma persistence: unspecified Qualified Codes: J45.901 - Unspecified asthma with (acute) exacerbation
--- NOTE | 2017-01-17 14:28 | DIAGNOSTIC IMAGING REPORT ---
CHEST ONE VIEW PORTABLE CLINICAL HISTORY: cough COMPARISON STUDY: 11/15/2016 FINDINGS: The cardiac and mediastinal contours are normal. There is no evidence of focal pulmonary consolidation. There is no evidence of failure. No pleural effusions are visualized.[ IMPRESSION: No active disease in the chest. Electronically signed by: Amador Cartwright M.D. 01/17/2017 2:26 PM Dictated Date/Time: 01/17/2017 2:26 PM
[2017-01-17] MEDS ORDERED: PRED20TA2 PO (14:39)
[2017-01-17] MEDS ORDERED: VNTHFA/IN INH (14:40)
[2017-01-17 15:01] VITALS: BP 124/91; PULSE 83; O2SAT 100
== END 2017-01-17 15:02 | disposition home or self-care (01) ==
LOC: EDBD 13:51 → C.EDC 13:53
DX: J45.901 Unspecified asthma with (acute) exacerbation (principal); Z83.3 Family history of diabetes mellitus; Z82.49 Family history of ischemic heart disease and other diseases of the circulatory system; Z79.899 Other long term (current) drug therapy

== ENCOUNTER 2017-02-23 05:02 | Emergency (ER) | payer OTHER ==
[~2017-02-23] VITALS: Ht 167.6 cm; Wt 109.3 kg
[~2017-02-23 05:02] MED LIST changes: +PRED20TA2 PO
[2017-02-23 05:06] VITALS: TEMP 36.7; Ht 167.6 cm; Wt 109.3 kg
[2017-02-23] MEDS ORDERED: METHYLPREDNISOLONE 125 MG VIAL IV STA (05:21)
--- NOTE | 2017-02-23 05:29 | EMERGENCY ROOM VISIT NOTE ---
History Report prepared by Beau: Anthony Ramos Under the Supervision of: Dr. Ely Lopez D.O. First contact with patient: 05:13 Chief Complaint: RESPIRATORY PROBLEMS Stated Complaint: WHEEZING,SHORTNESS OF BREATH History of Present Illness The patient is a 21 year old female who presents to the Emergency Room with complaints of worsening shortness of breath beginning 8 hours ago. The patient states she ran out of her inhaler last evening. She reports she last used her inhaler 7 hours ago. The patient notes the last time she was on steroid was a month ago. She states she recently recovered from a cough and cold. The patient denies a sorethroat and abdominal pain. Source of History: patient Onset: 8 hours ago Position: other (global) Quality: other (SOB) Timing: worsening Associated Symptoms: No sorethroat, No abdominal pain Review of Systems See HPI for pertinent positives & negatives. A total of 10 systems reviewed and were otherwise negative. Past Medical & Surgical Medical Problems: (1) ACL tear (2) Asthma (3) Failure of outpatient treatment Family History Diabetes mellitus Hypertension Social History Smoking Status: Never Smoker Drug Use: none Marital Status: single, in relationship Housing Status: lives with friends Occupation Status: [employer] student Current/Historical Medications Scheduled Ascorbic Acid (Vitamin C), 1 TAB PO DAILY B-Complex Vitamins (Vitamin B Complex), 1 TAB PO DAILY Beclomethasone Dip (Qvar), 1 PUFF PO AMPM Doxycycline Monohydrate (Monodox), 100 MG PO BID Echinacea (Echinacea), 1 TAB PO DAILY Levocetirizine Dihydrochloride (Xyzal Allergy 24Hr), 5 MG PO DAILY Prednisone (Prednisone), 50 MG PO DAILY Scheduled PRN Albuterol Hfa (Ventolin Hfa), 2 PUFF INH QID PRN for SOB/Wheezing Allergies Coded Allergies: Cat Dander (Verified Allergy, Severe, SHORTNESS OF BREATH, 02/23/17) Dog Dander (Verified Allergy, Severe, SHORTNESS OF BREATH, 02/23/17) Shrimp (Verified Allergy, Severe, lips itch and swell, 02/23/17) Penicillins (Verified Adverse Reaction, Unknown, UNKN, 02/23/17) Physical Exam Vital Signs Date Time Temp Pulse Resp B/P (MAP) Pulse Ox O2 Delivery O2 Flow Rate FiO2 02/23/17 05:38 103 16 93 Room Air 02/23/17 05:13 92 Room Air 02/23/17 05:06 36.7 107 22 144/85 92 Room Air Physical Exam General: Obese female who appears in slight respiratory distress. HEENT: Head - normocephalic and atraumatic Pupils are equal, round, and reactive to light. Extraocular eye muscles are intact, and sclera are anicteric. Nose - moist nasal mucosa without discharge. Mouth - moist buccal mucosa. Oropharynx is nonerythematous and there is no tonsillar exudate or edema noted. Neck: Supple; no JVD, nuchal rigidity, cervical lymphadenopathy. Heart: Regular rate and rhythm. There is a normal S1 and S2 with no murmurs, clicks, or gallops appreciated. Lungs: Minimal air movement with inspiratory and expiratory wheezing. Abdomen: Soft, completely nontender, nondistended, with good bowel sounds. There are no palpable pulsatile masses or hepatosplenomegaly. There is no guarding, rigidity, or rebound noted. Extremities: No evidence of cyanosis, clubbing, or edema. There are easily palpable peripheral pulses. Skin: warm and dry with good turgor and no rashes. Medical Decision & Procedures ER Provider Diagnostic Interpretation: X-ray results as stated below per interpretation by me and the radiologist: Chest X-ray: no acute pulmonary findings, no pneumothorax. Medications Administered Medications (Trade) Dose Ordered Sig/Kemal Route Start Time Stop Time Status Last Admin Dose Admin Methylprednisolone Sodium Succinate (Solu-Medrol IV) 125 mg NOW STAT IV 02/23/17 05:21 02/23/17 05:23 DC 02/23/17 05:29 125 MG Albuterol/ Ipratropium (Duoneb) 12 ml ONE ONCE INH 02/23/17 05:30 02/23/17 05:31 DC 02/23/17 05:30 12 ML Albuterol (Ventolin Hfa Inhaler) 2 puffs NOW ONCE INH 02/23/17 06:45 02/23/17 06:46 DC 02/23/17 06:45 2 PUFFS Procedure 0521: Ordered Methylprednisolone Sodium Succinate 125mg IV 0530: Ordered Albuterol/Ipratropium 12ml INH 0645: Ordered Albuterol 2 puffs INH ED Course 0509: Past medical records reviewed. The patient was evaluated in room A09B by the medical student under my supervision. A complete history and physical exam was performed. 0516: The patient was evaluated in room A09B by me. A complete history and physical examination were performed. Nursing notes and previous electronic medical records were reviewed. IV lock was established and labs were drawn as above. 0521: The patient's peak flow was 75. Ordered Methylprednisolone Sodium Succinate 125mg IV 0530: Ordered Albuterol/Ipratropium 12ml INH. She had a portable chest x-ray as described above. 0612: I reevaluated the patient. She was asleep, and her O2 Sat was 97. She is still receiving her hour long nebulizer. The patient states she is not feeling better. Her lungs are clear with no further wheezing. 0640: Upon reevaluation, the patient feels much better. Her repeat peak flow was 250. I discussed the patient's history with her. She has a history of a productive cough with green sputum and chills. I discussed findings and results with her. She verbalized agreement of the treatment plan. The patient will be discharged home when she receives her medication and inhaler. 0645: Ordered Albuterol inhaler to go Medical Decision The patient is a 21 year old female who presents to the ED with shortness of breath. Differential diagnosis includes status asthmaticus, bronchitis, pneumonia, asthma exacerbation, URI. This is a 21-year-old female patient with poorly controlled asthma. The patient states that she's had some upper respiratory symptoms including a cough that was productive of green sputum. She ran out of her inhaler yesterday. She had significant improvement in her symptoms here in the emergency department after an hour-long nebulizer treatment. Chest x-ray was negative for acute pulmonary pathology. The patient was given IV Solu-Medrol. Overall, the patient's O2 saturations remain stable. She is feeling much better. She will be discharged home with a prescription for prednisone and doxycycline. Impression Primary Impression: Asthma exacerbation Scribe Attestation The scribe's documentation has been prepared under my direction and personally reviewed by me in its entirety. I confirm that the note above accurately reflects all work, treatment, procedures, and medical decision making performed by me. Departure Information Dispostion Home / Self-Care Prescriptions Doxycycline Monohydrate (Monodox) 100 Mg Cap 100 MG PO BID for 10 Days, #20 CAP Prov: Ely Lopez D.O. 02/23/17 Prednisone (PREDNISONE) 50 Mg Tab 50 MG PO DAILY for 5 Days, TAB Prov: Ely Lopez D.O. 02/23/17 Referrals No Doctor, Assigned (PCP) Forms HOME CARE DOCUMENTATION FORM, IMPORTANT VISIT INFORMATION, WORK / SCHOOL INSTRUCTIONS Patient Instructions Asthma - [facility] Additional Instructions Rest. Limit strenuous activity. Use inhaler - 2 puffs every 4 hours Prednisone - daily for 5 days Doxycycline - 100mg every 12 hours for 10 days Follow up with PCP by the end of the week for a recheck. Return to the ER if symptoms worsen. Problem Qualifiers Primary Impression: Asthma exacerbation Asthma severity: moderate Asthma persistence: unspecified Qualified Codes: J45.901 - Unspecified asthma with (acute) exacerbation
[2017-02-23] MEDS ORDERED: ALBUT/IPRATROP 3MG/0.5MG NEB 3 ML VIAL INH ONE (05:30)
[2017-02-23 05:38] VITALS: PULSE 103; O2SAT 93
[2017-02-23] MEDS ORDERED: QVRINH40 PO (06:37)
--- NOTE | 2017-02-23 06:38 | DIAGNOSTIC IMAGING REPORT ---
CHEST ONE VIEW PORTABLE CLINICAL HISTORY: asthma exacerbation COMPARISON STUDY: 01/17/2017 FINDINGS: The cardiac and mediastinal contours are normal. There is no evidence of focal pulmonary consolidation. There is no evidence of failure. No pleural effusions are visualized.[ Apparent increased markings within the right lower lung zone, likely related to overlying breast tissue attenuation. IMPRESSION: No active disease in the chest. Electronically signed by: Amador Cartwright M.D. 02/23/2017 6:37 AM Dictated Date/Time: 02/23/2017 6:36 AM
[2017-02-23] MEDS ORDERED: ALBUTEROL HFA 8 GM INHALER INH ONE (06:45)
[2017-02-23] MEDS ORDERED: PRED50TA PO (06:49)
[2017-02-23] MEDS ORDERED: DOXY100C76 PO (06:49)
[2017-02-23 07:02] VITALS: BP 113/75; PULSE 109; O2SAT 99
== END 2017-02-23 07:00 | disposition home or self-care (01) ==
LOC: C.EDB 05:03 → C.EDA 07:00
DX: J45.41 Moderate persistent asthma with (acute) exacerbation (principal); Z83.3 Family history of diabetes mellitus; Z82.49 Family history of ischemic heart disease and other diseases of the circulatory system

== ENCOUNTER 2017-02-23 13:00 | Inpatient (IN) | payer OTHER ==
[~2017-02-23] VITALS: Ht 157.5 cm; Wt 108.1 kg
[~2017-02-23 13:00] MED LIST changes: +DOXY100C76 PO; +PRED50TA PO; +QVRINH40 PO
[2017-02-23] MEDS ORDERED: MAGNESIUM SULFATE 1GM / D5W 1 GM BAG IV STA (13:20)
[2017-02-23] MEDS ORDERED: ALBUT/IPRATROP 3MG/0.5MG NEB 3 ML VIAL INH ONE (13:30)
[2017-02-23] MEDS ORDERED: METHYLPREDNISOLONE IV 40 MG in SYRINGE 0 ML IV SCH (13:30)
[2017-02-23 13:47] VITALS: PULSE 117; O2SAT 92
[2017-02-23 13:54] LABS: ISTAT CREATININE 0.5 mg/dl (0.6-1.3); ISTAT IONIZED CALCIUM 1.24 mmol/l (1.12-1.32); ISTAT POTASSIUM 4.2 mEq/L (3.3-5.0)
[2017-02-23] MEDS ORDERED: OPTIRAY 320 IV PRN (14:00)
[2017-02-23 14:11] LABS: BASO % 0.1 %; BASO ABS # 0.01 K/uL (0-0.2); EOS % 0.1 %; EOS ABS # 0.01 K/uL (0-0.5); HEMATOCRIT 38.3 % (37-47); HEMOGLOBIN 12.3 g/dL (12.0-16.0); IG# 0.04 K/uL (0.00-0.02); LYMPH % 6.7 %; MEAN CELL VOLUME 68.6 fL (80-100); MEAN CORPUSCULAR HGB CONC 32.1 g/dl (32-36); MEAN PLATELET VOLUME 10.2 fL (7.4-10.4); MONO ABS # 0.13 K/uL (0.11-0.59); NEUT % 91.8 %; NEUT ABS # 12.26 K/uL (1.4-6.5); PLATELET COUNT 280 K/uL (130-400); RED CELL DISTRIBUTION WIDTH CV 16.2 % (11.5-14.5); RED CELL DISTRIBUTION WIDTH SD 40.2 fL (36.4-46.3); WHITE BLOOD COUNT 13.35 K/uL (4.8-10.8)
--- NOTE | 2017-02-23 14:17 | DIAGNOSTIC IMAGING REPORT ---
CHEST ONE VIEW PORTABLE CLINICAL HISTORY: Atypical chest pain COMPARISON STUDY: 02/23/2017 FINDINGS: The cardiac and mediastinal contours are normal. There is no evidence of focal pulmonary consolidation. There is no evidence of failure. No pleural effusions are visualized.[ IMPRESSION: No active disease in the chest. Electronically signed by: Amador Cartwright M.D. 02/23/2017 2:16 PM Dictated Date/Time: 02/23/2017 2:15 PM
[2017-02-23 14:19] LABS: BLOOD UREA NITROGEN 8 mg/dl (7-18); CALCIUM 9.6 mg/dl (8.5-10.1); CARBON DIOXIDE 19 mmol/L (21-32); CREATININE 0.82 mg/dl (0.60-1.20); GLUCOSE 143 mg/dl (70-99); POTASSIUM 4.3 mmol/L (3.5-5.1); SODIUM 136 mmol/L (136-145)
[2017-02-23 14:23] LABS: CKMB 0.8 ng/ml (0.5-3.6)
--- NOTE | 2017-02-23 14:36 | DIAGNOSTIC IMAGING REPORT ---
CHEST CTA for PULMONARY ARTERIES CT DOSE: 530.63 mGy.cm HISTORY: Short of breath. TECHNIQUE: Multiaxial CT images of the chest were performed following the intravenous administration of contrast to evaluate the pulmonary arteries. Maximal intensity projection images were also obtained. A dose lowering technique was utilized adhering to the principles of ALARA. COMPARISON STUDY: Chest 02/23/2017. FINDINGS: Normal caliber thoracic aorta with no evidence for dissection. Motion artifact results in nondiagnostic evaluation within the majority of the left lower lobe segmental pulmonary arteries and right middle lobe segmental pulmonary arteries. Otherwise, no filling defects within the remaining pulmonary arteries to suggest evidence for pulmonary embolus. The visualized liver, spleen, and adrenal glands are unremarkable. No mediastinal or hilar lymphadenopathy. No pleural effusions. No pneumothorax. A few scattered patchy groundglass airspace opacities seen within the lungs, most pronounced within the lower lobes. IMPRESSION: 1. No evidence for pulmonary embolus with limitations as described above. 2. A few scattered patchy groundglass airspace opacities within the lungs most pronounced within the lower lobes. This favors a multifocal pneumonia. Electronically signed by: Dexter Long M.D. 02/23/2017 2:27 PM Dictated Date/Time: 02/23/2017 2:17 PM
[2017-02-23] MEDS ORDERED: LEVAQUIN 750MG / 150ML D5W IV STA (14:52)
[2017-02-23] MEDS ORDERED: MoRPHine SULFATE 4 MG/ML 1 ML CARP\\VIAL IV STA (15:14)
--- NOTE | 2017-02-23 15:30 | NUR ---
A/ID: Pt admitted to Rm [id number]. Received report from Yandy MENJIVAR in ED prior to Pty arriving. Pt arrived via litter on monitor. Heart monitor placed on Pt, VS taken, and Pt assessed. Pt awake, alert, and oriented x 4. Pt states being SOB and having CP from coughing. For full assessment see admission assessment in EMR. Pt is in bed at this time. Bed is in lowest position with two side rails up, call waite is within reach. Case management to follow with Pt for DC planning.
--- NOTE | 2017-02-23 15:43 | History and Physical ---
History & Physical Date & Time of Service: Feb 23, 2017 at 15:43 Chief Complaint: Wheezing, Sob Primary Care Physician: No Doctor, Assigned History of Present Illness Source: patient, family Harry is a 21 year old asthmatic female who presents today with severe shortness of breath since last night. She reports yesterday in the day she was feeling well, noticed some nasal congestion, then at night felt she could not breathe. She came to the ED this morning around 5am, and the note reports she had run out of her inhaler and her breathing had worsened. She received an hour long nebulizer, steroids IV and was discharged home. She tried to sleep but was unable to and felt her breathing was worsening so returned. She had also noticed a new central chest pain, worse w/breathing in, improved now after morphine upon arrival to the ED. She had a CTA which was negative for PE. She has visited the ED monthly since around October with asthma exacerbations. She has never been intubated but has required PO steroids for about a week each time, most recently a month ago. She does not have a certified ethical hacker locally. Previously, I admitted her in October, and it was discovered that she was sleeping with her cat on her chest. She has since given away her cat, and reports minimal contact with her friends pets (although she is occasionally around them). She reports a recent cold that she is getting over. She denies any recent fevers , chills. She has a cough with green sputum. She denies any nausea, vomiting, leg swelling, abdominal pain, or rashes. 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 She has never smoked. She drinks socially. She is from [place], [place]. She presents today with her family friend who is like an uncle to her. Smoking Status: Never Smoker Drug Use: none Marital Status: single, in relationship Occupational Status: [employer] student Immunizations History of Influenza Vaccine: Unknown History of Tetanus Vaccine?: Unknown History of Pneumococcal: Unknown History of Hepatitis B Vaccine: Unknown Multi-Drug Resistant Organisms History of MDRO: No Allergies Coded Allergies: Cat Dander (Verified Allergy, Severe, SHORTNESS OF BREATH, 02/23/17) Dog Dander (Verified Allergy, Severe, SHORTNESS OF BREATH, 02/23/17) Shrimp (Verified Allergy, Severe, lips itch and swell, 02/23/17) Penicillins (Verified Adverse Reaction, Unknown, UNKN, 02/23/17) Home Medications Scheduled Ascorbic Acid (Vitamin C), 1 TAB PO DAILY B-Complex Vitamins (Vitamin B Complex), 1 TAB PO DAILY Beclomethasone Dip (Qvar), 1 PUFF PO AMPM Doxycycline Monohydrate (Monodox), 100 MG PO BID Echinacea (Echinacea), 1 TAB PO DAILY Levocetirizine Dihydrochloride (Xyzal Allergy 24Hr), 5 MG PO DAILY Prednisone (Prednisone), 50 MG PO DAILY Scheduled PRN Albuterol Hfa (Ventolin Hfa), 2 PUFF INH QID PRN for SOB/Wheezing Review of Systems See HPI for pertinent positives & negatives. A total of 10 systems reviewed and were otherwise negative. Physical Exam Vital Signs Date Time Temp Pulse Resp B/P (MAP) Pulse Ox O2 Delivery O2 Flow Rate FiO2 02/23/17 15:36 89 Nasal Cannula 6.0 02/23/17 15:20 130 26 132/64 92 Nasal Cannula 6.0 02/23/17 14:23 122 22 152/97 92 Nebulizer 8.0 02/23/17 14:03 122 02/23/17 13:47 117 28 92 Nasal Cannula 3.0 02/23/17 13:06 36.9 122 24 134/78 85 Room Air General Appearance: WD/WN, + mild distress, + obese Head: normocephalic, atraumatic Eyes: normal inspection, PERRL ENT: hearing grossly normal Neck: supple, no JVD Respiratory/Chest: + wheezing (diffuse inspiratory and expiratory wheeze) Cardiovascular: no JVD, no murmur, normal peripheral pulses, + tachycardia Abdomen/GI: normal bowel sounds, non tender, soft Back: normal inspection, no CVA tenderness, no muscle spasm Extremities/Musculoskelatal: normal inspection, no calf tenderness, no pedal edema Neurologic/Psych: hot dog vender II-XII nml as tested, alert, normal mood/affect, oriented x 3 Skin: normal color, warm/dry, no rash Diagnostics Laboratory Results Results Past 24 Hours Test 02/23/17 13:30 02/23/17 13:41 Range/Units White Blood Count 13.35 4.8-10.8 K/uL Red Blood Count 5.58 4.2-5.4 M/uL Hemoglobin 12.3 12.0-16.0 g/dL Hematocrit 38.3 37-47 % Mean Corpuscular Volume 68.6 80-100 fL Mean Corpuscular Hemoglobin 22.0 25-34 pg Mean Corpuscular Hemoglobin Concent 32.1 32-36 g/dl Platelet Count 280 130-400 K/uL Mean Platelet Volume 10.2 7.4-10.4 fL Neutrophils (%) (Auto) 91.8 % Lymphocytes (%) (Auto) 6.7 % Monocytes (%) (Auto) 1.0 % Eosinophils (%) (Auto) 0.1 % Basophils (%) (Auto) 0.1 % Neutrophils # (Auto) 12.26 1.4-6.5 K/uL Lymphocytes # (Auto) 0.90 1.2-3.4 K/uL Monocytes # (Auto) 0.13 0.11-0.59 K/uL Eosinophils # (Auto) 0.01 0-0.5 K/uL Basophils # (Auto) 0.01 0-0.2 K/uL RDW Standard Deviation 40.2 36.4-46.3 fL RDW Coefficient of Variation 16.2 11.5-14.5 % Immature Granulocyte % (Auto) 0.3 % Immature Granulocyte # (Auto) 0.04 0.00-0.02 K/uL Microcytosis PRESENT Sodium Level 136 136-145 mmol/L Potassium Level 4.3 3.5-5.1 mmol/L Chloride Level 107 98-107 mmol/L Carbon Dioxide Level 19 21-32 mmol/L Anion Gap 10.0 17.0 16-25 mmol/L Blood Urea Nitrogen 8 7-18 mg/dl Creatinine 0.82 0.60-1.20 mg/dl Est Creatinine Clear Calc Drug Dose 122.1 ml/min Estimated GFR () 116.9 Estimated GFR (Non- 100.9 BUN/Creatinine Ratio 9.5 10-20 Random Glucose 143 70-99 mg/dl Calcium Level 9.6 8.5-10.1 mg/dl Total Creatine Kinase 191 26-192 U/L Creatine Kinase MB 0.8 0.5-3.6 ng/ml Creatine Kinase MB Ratio 0.4 0-3.0 Troponin I < 0.015 0-0.045 ng/ml Bedside Hemoglobin 12.9 12.0-16.0 g/dl Bedside Hematocrit 38 37-47 % Bedside Sodium 140 135-144 mEq/L Bedside Potassium 4.2 3.3-5.0 mEq/L Bedside Chloride 108 101-112 mEq/L Bedside Total CO2 20 24-31 mEq/l Bedside Blood Urea Nitrogen 6 7-18 mg/dl Bedside Creatinine 0.5 0.6-1.3 mg/dl Bedside Glucose (other) 154 70-99 mg/dl Bedside Ionized Calcium (Giles) 1.24 1.12-1.32 mmol/l Diagnostic Radiology CTA: IMPRESSION: 1. No evidence for pulmonary embolus with limitations as described above. 2. A few scattered patchy groundglass airspace opacities within the lungs most pronounced within the lower lobes. This favors a multifocal pneumonia. CXR: IMPRESSION: No active disease in the chest. EKG Sinus tachycardia Possible Left atrial enlargement Borderline ECG When compared with ECG of 15-NOV-2016 07:57, Vent. rate has increased BY 41 BPM Confirmed by MARIAM OMER ([id number]) on 02/23/2017 3:38:04 PM Impression Assessment and Plan 21 yo F with multiple recent asthma exacerbation, presents w/persistent shortness of breath and hypoxia despite recent treatment, also found to have a multifocal pneumonia on CTA. Asthma exacerbation, failed outpatient tx - Continue Solumedrol 60mg IV q6h, will transition to PO when stable - Continue oxygen, maintain sats 94-96% - Nebulizers q6h, will trial Xopenex neb since she is so tachycardic - Continue her home inhaler regime: Q salazar, albuterol PRN - Will obtain a pulmonary consult since pt has had an exacerbation monthly x 6 months which is significant steroid intake for her age - Incentive spirometry - Discussed w/respiratory - will change to high flow o2 now, and also obtain peak flow pre and post broncho-dilator Multifocal pneumonia - Levaquin IV provided in ED, will continue tomorrow - Concerned for other viral processes so will check a influenza and RSV Allergic rhinitis - Continue Xyzal - Will add Singulair 10mg qPM Tachycardia - Likely from Albuterol. PE was ruled out, but will continue to monitor on telemetry. Headache - Toradol PRN Dispo: Admit to Tele Code status: Full. Explained to patient that if she worsened she would require intubation, which she understands. VTE: Lovenox VTE Prophylaxis VTE Risk Assessment Done? Y/N: Yes Risk Level: High Note Resident Physician Supervision Note: I was present with Dr. Sera Byrd during the admission history and exam. I discussed the case with the resident and agree with the findings and plan as documented in the note. Any exceptions or clarifications are listed here: none. 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 At presentation today was hypoxic, requiring hour-long duoneb, IV steroids, and IV abx. CTA chest neg for PE but with patchy infiltrates bases. Pt reports using nearly 200 puffs of albuterol MDI over the last 24-36 hours! Last albuterol use was about 1 month ago to her recollection. During my visit, despite the above measures, she was only satting high 80s on face mask and c/o dyspnea. PMH, PSH, allergies, meds, sochx, famhx, ros - reviewed vitals - hypoxic, tachycardic, tachypneic, BP wnl gen - dyspneic but able to speak in full sentences; mild tachypnea; obese neck - no JVD mouth - MMM voice - hoarse heart - tachy, s1, s2 lungs - fair air movement at best, with exertion in the bed she has mild retractions, wheezes b/l, no rales, decreased bases abd - soft ext - no edema A/P: 1. acute hypoxic resp failure 2. status asthmaticus / asthma exacerbation in a poorly controlled asthmatic 3. morbid obesity 4. allergic rhinitis 5. ? could she have element of laryngeal dyskinesia? 6. probable b/l community-acquired pneumonia on CTA IV steroids, abx, nebs, incentive spirometry change mask to high-flow NC ABG now urine HCG pulmonary consultation serial exams given how tenuous she is; if any worsening then CPAP/BIPAP Documented By: Jorje Maurer MD Resident Tracking Resident Involvement: Resident Care Provided Care Provided: Adult Hospital Medicine
[2017-02-23] MEDS ORDERED: ALUMINUM/MAGNESIUM/SIMETH (MAALOX MAX) 30 ML UDC PO PRN (15:45)
[2017-02-23] MEDS ORDERED: MoRPHine SULFATE 2 MG/ML CARP IV PRN (15:45)
[2017-02-23] MEDS ORDERED: MAGNESIUM HYDROXIDE SUSP 30 ML UDC PO PRN (15:45)
[2017-02-23] MEDS ORDERED: ONDANSETRON INJ 2 MG/ML 2 ML VIAL IV PRN (15:45)
[2017-02-23] MEDS ORDERED: INFLUENZA VIRUS QUAD VACCINE 0.5 ML SYR IM. ONE (15:45)
[2017-02-23] MEDS ORDERED: ACETAMINOPHEN 325 MG TAB PO PRN (15:45)
[2017-02-23] MEDS ORDERED: PNEUMOCOCCAL POLYSACCHARIDES 25 MCG/0.5 ML VIAL/SYR IM. ONE (15:45)
[2017-02-23] MEDS ORDERED: ALBUTEROL HFA 8 GM INHALER INH PRN (15:45)
[2017-02-23] MEDS ORDERED: POLYETHYLENE (MIRALAX) 17 GM PACK PO PRN (15:45)
[2017-02-23] MEDS ORDERED: NURSING VERBAL MED ORDER ONE (16:00)
[2017-02-23 16:52] VITALS: O2SAT 90
[2017-02-23 16:56] VITALS: BP 147/79; PULSE 132; TEMP 36.9; O2SAT 90; Ht 157.5 cm; Wt 108.1 kg
[2017-02-23 17:19] LABS: PTT PATIENT 26.8 SECONDS (21.0-31.0)
--- NOTE | 2017-02-23 17:33 | EMERGENCY ROOM VISIT NOTE ---
History Report prepared by Beau: Diaz Lopez Under the Supervision of: Dr. Jonathan Kerr D.O. First contact with patient: 13:11 Chief Complaint: SHORTNESS OF BREATH Stated Complaint: WHEEZING, SOB Nursing Triage Summary: triage note pt was seen here this morning dc at 0700. stated c/o sob chest is tight wheezing attempted to use neb at home with no results History of Present Illness The patient is a 21 year old female who presents to the Emergency Room with complaints of intermittent shortness of breath that started this morning. Patient adds that she has a history of asthma. She adds that her symptoms are not the same as previous asthma attacks due to the pleuritic chest pain, which is not there during previous attacks. She states her symptoms are exacerbated when breathing. She also states that her ankles were swollen before her ER visit this morning. She then went home and tried to sleep it off and woke up feeling worse. Patient says she tried her home nebulizer but it did not help. She states that she was seen in the ER previously this morning at 7am because her chest felt tight and "heavy". Patient says her symptoms feel worse than previous asthma attacks. Pt denies headache, change in vision, fevers, nausea, vomiting, diarrhea, pain with urination, and melena. Patient denies any history of sudden deaths in family, recent trips, and blood clots. Patient is currently taking control and had her last known menstrual period 2 weeks ago. Pertinent medical history is her mother passing away of cervical cancer. Source of History: patient Onset: this morning Position: other (Global) Quality: other (shortness of breath) Timing: intermittent Modifying Factors (Worsening): breathing Associated Symptoms: + chest pain (Pleuritic), No fevers, No headache, No nausea, No melena, No diarrhea Note: Patient adds she has ankle swelling. Review of Systems See HPI for pertinent positives & negatives. A total of 10 systems reviewed and were otherwise negative. 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 Current/Historical Medications Scheduled Ascorbic Acid (Vitamin C), 1 TAB PO DAILY B-Complex Vitamins (Vitamin B Complex), 1 TAB PO DAILY Beclomethasone Dip (Qvar), 1 PUFF PO AMPM Doxycycline Monohydrate (Monodox), 100 MG PO BID Echinacea (Echinacea), 1 TAB PO DAILY Levocetirizine Dihydrochloride (Xyzal Allergy 24Hr), 5 MG PO DAILY Prednisone (Prednisone), 50 MG PO DAILY Scheduled PRN Albuterol Hfa (Ventolin Hfa), 2 PUFF INH QID PRN for SOB/Wheezing Allergies Coded Allergies: Cat Dander (Verified Allergy, Severe, SHORTNESS OF BREATH, 02/23/17) Dog Dander (Verified Allergy, Severe, SHORTNESS OF BREATH, 02/23/17) Shrimp (Verified Allergy, Severe, lips itch and swell, 02/23/17) Penicillins (Verified Adverse Reaction, Unknown, UNKN, 02/23/17) Physical Exam Vital Signs Date Time Temp Pulse Resp B/P (MAP) Pulse Ox O2 Delivery O2 Flow Rate FiO2 02/23/17 15:36 89 Nasal Cannula 6.0 02/23/17 15:20 130 26 132/64 92 Nasal Cannula 6.0 02/23/17 14:23 122 22 152/97 92 Nebulizer 8.0 02/23/17 14:03 122 02/23/17 13:47 117 28 92 Nasal Cannula 3.0 02/23/17 13:06 36.9 122 24 134/78 85 Room Air Physical Exam GENERAL: Sitting up in bed, alert, well appearing, well nourished, mild distress , non-toxic, dismic with conversation EYE EXAM: normal conjunctiva. PERRL and EOM's grossly intact. OROPHARYNX: no exudate, no erythema, lips, buccal mucosa, and tongue normal and mucous membranes are moist NECK: No JVD. Supple, no nuchal rigidity, no adenopathy, non-tender LUNGS: Faint wheezing bilaterally with poor air movement. Normal chest wall mechanics HEART: no murmurs, S1 normal and S2 normal ABDOMEN: abdomen soft, non-tender, normo-active bowel sounds, no masses, no rebound or guarding. BACK: Back is symmetrical on inspection and there is no deformity, no midline tenderness, no CVA tenderness. SKIN: no rashes and no bruising UPPER EXTREMITIES: upper extremities are grossly normal. LOWER EXTREMITIES: No pitting edema. Left calf larger than right NEURO EXAM: Normal sensorium, cranial nerves II-XII grossly intact, normal speech, no gross weakness of arms, no gross weakness of legs. No drift. Finger to nose intact. Gross sensation intact. Medical Decision & Procedures ER Provider Diagnostic Interpretation: Radiology results as stated below per my review and the radiologist's interpretation: CHEST ONE VIEW PORTABLE CLINICAL HISTORY: Atypical chest pain COMPARISON STUDY: 02/23/2017 FINDINGS: The cardiac and mediastinal contours are normal. There is no evidence of focal pulmonary consolidation. There is no evidence of failure. No pleural effusions are visualized.[ IMPRESSION: No active disease in the chest. Electronically signed by: Amador Cartwright M.D. 02/23/2017 2:16 PM CHEST CTA for PULMONARY ARTERIES CT DOSE: 530.63 mGy.cm HISTORY: Short of breath. TECHNIQUE: Multiaxial CT images of the chest were performed following the intravenous administration of contrast to evaluate the pulmonary arteries. Maximal intensity projection images were also obtained. A dose lowering technique was utilized adhering to the principles of ALARA. COMPARISON STUDY: Chest 02/23/2017. FINDINGS: Normal caliber thoracic aorta with no evidence for dissection. Motion artifact results in nondiagnostic evaluation within the majority of the left lower lobe segmental pulmonary arteries and right middle lobe segmental pulmonary arteries. Otherwise, no filling defects within the remaining pulmonary arteries to suggest evidence for pulmonary embolus. The visualized liver, spleen, and adrenal glands are unremarkable. No mediastinal or hilar lymphadenopathy. No pleural effusions. No pneumothorax. A few scattered patchy groundglass airspace opacities seen within the lungs, most pronounced within the lower lobes. IMPRESSION: 1. No evidence for pulmonary embolus with limitations as described above. 2. A few scattered patchy groundglass airspace opacities within the lungs most pronounced within the lower lobes. This favors a multifocal pneumonia. Electronically signed by: Dexter Long M.D. 02/23/2017 2:27 PM Laboratory Results 02/23/17 13:30 Red Blood Count 5.58, Mean Corpuscular Volume 68.6, Mean Corpuscular Hemoglobin 22.0, Mean Corpuscular Hemoglobin Concent 32.1, Mean Platelet Volume 10.2, Neutrophils (%) (Auto) 91.8, Lymphocytes (%) (Auto) 6.7, Monocytes (%) (Auto) 1.0, Eosinophils (%) (Auto) 0.1, Basophils (%) (Auto) 0.1, Neutrophils # (Auto) 12.26, Lymphocytes # (Auto) 0.90, Monocytes # (Auto) 0.13, Eosinophils # (Auto) 0.01, Basophils # (Auto) 0.01 02/23/17 13:30 Test 02/23/17 13:30 02/23/17 13:41 White Blood Count 13.35 K/uL (4.8-10.8) Red Blood Count 5.58 M/uL (4.2-5.4) Hemoglobin 12.3 g/dL (12.0-16.0) Hematocrit 38.3 % (37-47) Mean Corpuscular Volume 68.6 fL (80-100) Mean Corpuscular Hemoglobin 22.0 pg (25-34) Mean Corpuscular Hemoglobin Concent 32.1 g/dl (32-36) Platelet Count 280 K/uL (130-400) Mean Platelet Volume 10.2 fL (7.4-10.4) Neutrophils (%) (Auto) 91.8 % Lymphocytes (%) (Auto) 6.7 % Monocytes (%) (Auto) 1.0 % Eosinophils (%) (Auto) 0.1 % Basophils (%) (Auto) 0.1 % Neutrophils # (Auto) 12.26 K/uL (1.4-6.5) Lymphocytes # (Auto) 0.90 K/uL (1.2-3.4) Monocytes # (Auto) 0.13 K/uL (0.11-0.59) Eosinophils # (Auto) 0.01 K/uL (0-0.5) Basophils # (Auto) 0.01 K/uL (0-0.2) RDW Standard Deviation 40.2 fL (36.4-46.3) RDW Coefficient of Variation 16.2 % (11.5-14.5) Immature Granulocyte % (Auto) 0.3 % Immature Granulocyte # (Auto) 0.04 K/uL (0.00-0.02) Microcytosis PRESENT Prothrombin Time 10.4 SECONDS (9.0-12.0) Prothromb Time International Ratio 1.0 (0.9-1.1) Activated Partial Thromboplast Time 26.8 SECONDS (21.0-31.0) Partial Thromboplastin Ratio 1.0 Est Creatinine Clear Calc Drug Dose 122.1 ml/min Estimated GFR () 116.9 Estimated GFR (Non- 100.9 BUN/Creatinine Ratio 9.5 (10-20) Calcium Level 9.6 mg/dl (8.5-10.1) Total Creatine Kinase 191 U/L (26-192) Creatine Kinase MB 0.8 ng/ml (0.5-3.6) Creatine Kinase MB Ratio 0.4 (0-3.0) Troponin I < 0.015 ng/ml (0-0.045) Bedside Hemoglobin 12.9 g/dl (12.0-16.0) Bedside Hematocrit 38 % (37-47) Bedside Sodium 140 mEq/L (135-144) Bedside Potassium 4.2 mEq/L (3.3-5.0) Bedside Chloride 108 mEq/L (101-112) Bedside Total CO2 20 mEq/l (24-31) Anion Gap 17.0 mmol/L (16-25) Bedside Blood Urea Nitrogen 6 mg/dl (7-18) Bedside Creatinine 0.5 mg/dl (0.6-1.3) Bedside Glucose (other) 154 mg/dl (70-99) Bedside Ionized Calcium (Giles) 1.24 mmol/l (1.12-1.32) Laboratory results per my review. Medications Administered Medications (Trade) Dose Ordered Sig/Kemal Route Start Time Stop Time Status Last Admin Dose Admin Albuterol/ Ipratropium (Duoneb) 12 ml ONE ONCE INH 02/23/17 13:30 02/23/17 13:31 DC 02/23/17 13:47 12 ML Magnesium Sulfate (Magnesium Sulfate) 2 gm NOW STAT IV 02/23/17 13:20 02/23/17 13:22 DC 02/23/17 14:23 2 GM Methylprednisolone Sodium Succinate 40 mg/Syringe 0.64 ml @ 1.5 mls/min NOW IV 02/23/17 13:30 02/23/17 16:51 DC 02/23/17 14:55 1.5 MLS/MIN Levofloxacin (Levaquin / D5W) 750 mg NOW STAT IV 02/23/17 14:52 02/23/17 14:54 DC 02/23/17 15:33 750 MG Morphine Sulfate (MoRPHine SULFATE INJ) 4 mg NOW STAT IV 02/23/17 15:14 02/23/17 15:15 DC 02/23/17 15:21 4 MG ECG Indication: SOB/dyspnea Rate (beats per minute): 121 Rhythm: sinus tachycardia Findings: other (Normal [place], nonspecific intraventricular delay) ED Course ED COURSE: Vital signs were reviewed and appeared normal. The patients medical record was reviewed The above diagnostic studies were performed and reviewed. ED treatments and interventions as stated above. 1312: The patient was evaluated in room B3. A complete history and physical examination was performed. 1320: Magnesium Sulfate 2gm IV 1330: Methylprednisolone Sodium Succinate 40mg/Syringe 0.64ml @1.5mls/min IV, Duoneb 12ml INH 1400: Optiray 320 100ml IV 1452: Levofloxacin 750mg IV 1505: I reassessed the patient and she is resting comfortably. 1514: Morphine Sulfate 4mg IV 1520: Upon reevaluation, the patient will be evaluated for further management.I discussed my findings with the patient and she understands and agrees with the treatment plan. Based on the patients age, coexisting illnesses, exam and lab findings the decision to treat as an inpatient was made. The patient remained stable while under my care. The patient will be evaluated for further management. Medical Decision Differential diagnoses includes but is not limited to pneumonia, bronchitis, COPD/Asthma exacerbation, pneumothorax, pulmonary embolism, congestive heart failure, acute coronary syndrome. Patient is a 21-year-old female who presents to ER for shortness of breath. She was seen here earlier today and treated for asthma. She is a history of asthma but notes it is getting worse. She is referred in by [facility]. On exam she is dyspneic with conversation. Pulse ox is 85%. She is tachycardic in the 120s to 130s. Already received steroids earlier today. She is given an additional 40 mg IV. She had minimal wheezing bilaterally. She was given additional nebs. She was sent for CT PE shows multiple lobar pneumonia. She is covered with IV Levaquin. She was given an hour-long neb treatment/3 DuoNeb times in a row. She had minimal improvement of her symptoms. She remained on 2 L nasal cannula. Patient family were updated bedside. CBC shows a leukocytosis. BMP all within troponin was unremarkable. Patient family were updated bedside. She was monitored closely due to the respiratory distress. Patient was admitted to internal medicine for further workup of her multilobar pneumonia, hypoxia of 85% on room air and dyspnea. Medication Reconcilliation Current Medication List: was personally reviewed by me Blood Pressure Screening Patient's blood pressure: Normal blood pressure Blood pressure disposition: Did not require urgent referral Consults Time Called: 1520 Consulting Physician: Dr. Oneill -TREVER Returned Call: 1522 I reviewed the patient's case with Dr. Oneill. ELIEG will evaluate the patient for further management. Impression Primary Impression: Pneumonia Additional Impressions: Hypoxia Acute asthma exacerbation Critical Care I have personally spent 35 minutes of critical care time in the direct management of this patient. This includes bedside care, interpretation of diagnostic studies, and testing, discussion with consultants, patient, and family members, and other required patient management activities. This 35 minutes is in excess of all separately billable procedures. Scribe Attestation The scribe's documentation has been prepared under my direction and personally reviewed by me in its entirety. I confirm that the note above accurately reflects all work, treatment, procedures, and medical decision making performed by me. Departure Information Dispostion Being Evaluated By Hospitalist Referrals No Doctor, Assigned (PCP) Forms HOME CARE DOCUMENTATION FORM, IMPORTANT VISIT INFORMATION Patient Instructions My [facility] Problem Qualifiers Primary Impression: Pneumonia Pneumonia type: due to unspecified organism Laterality: unspecified laterality Lung location: unspecified part of lung Qualified Codes: J18.9 - Pneumonia, unspecified organism Additional Impressions: Acute asthma exacerbation Asthma severity: unspecified severity Asthma persistence: unspecified Qualified Codes: J45.901 - Unspecified asthma with (acute) exacerbation
[2017-02-23] MEDS ORDERED: KETOROLAC TROMETHAMINE 30 MG/ML VIAL IV STA (17:52)
[2017-02-23 19:07] VITALS: PULSE 112; O2SAT 95
[2017-02-23] MEDS: ALBUT/IPRATROP 3MG/0.5MG NEB 3 ML VIAL INH SCH (19:07)
[2017-02-23] MEDS: METHYLPREDNISOLONE IV 60 MG in SYRINGE 0 ML IV SCH (20:02)
[2017-02-23] MEDS: KETOROLAC TROMETHAMINE 30 MG/ML VIAL IV PRN (20:02)
[2017-02-23 20:05] VITALS: O2SAT 95
--- NOTE | 2017-02-23 20:11 | NUR ---
A: Upon assessment pt alert & oriented. Pt visiting and conversing with boyfriend with no s/s of distress. Upon assessment pt states that she is having chest pain of 10/10. Pt states that it is worse than it had been. Pt being medicated with Toradol at his time for headache. Dr. Bolton made aware. EKG and Troponin ordered. Will continue to monitor.
--- NOTE | 2017-02-23 20:33 | NUR ---
A: LAb attempted to get ABG's x 3. Respiratory paged to get ABG's. Dr. Bolton aware.
[2017-02-23] MEDS ORDERED: IPRATROPIUM BROMIDE NEB SOLN 0.02% 2.5 ML VIAL INH SCH (21:00)
[2017-02-23] MEDS ORDERED: LEVALBUTEROL 0.63MG/3 ML NEB INH SCH (21:00)
[2017-02-23] MEDS ORDERED: LEVALBUTEROL/IPRATROPIUM NEB INH SCH (21:00)
[2017-02-23] MEDS ORDERED: METHYLPREDNISOLONE IV 125 MG in SYRINGE 0 ML IV SCH (21:00)
[2017-02-23 21:05] LABS: ISTAT POTASSIUM 4.3 mEq/L (3.3-5.0); ISTAT SODIUM 139 mEq/L (135-144)
[2017-02-23 21:55] LABS: INFLUENZA B ANTIGEN Neg for Influ B (NEG)
--- NOTE | 2017-02-23 22:16 | NUR ---
A: Pt upset and tearful through shift. Pt now doesn't want the highflow oxygen. States that she feels that she will suffocate. Explained the high fatou o2. Did provide reassurance. Explained that this was an MD order. Dr. Bolton contacted. Keep high fatou on per Dr. Bolton. Will continue to monitor.
[2017-02-23 22:42] LABS: INFLUENZA A PCR Neg for Influ A (NEG); INFLUENZA B PCR Neg for Influ B (NEG)
[2017-02-23 23:05] VITALS: BP 143/60; PULSE 110; TEMP 36.9; O2SAT 92
[2017-02-24] VITALS (12 sets, daily range): BP systolic 114–138; BP diastolic 66–79; PULSE 95–110; TEMP 36.4–36.9; O2SAT 90–97
--- NOTE | 2017-02-24 | NUR ---
A: Patient assessment completed at this time. SR/ST on monitor. See EMR for full assessment. Denies pain at this time. OOB with min. assist. Patient anxious. High flow O2 on. Lungs diminished with wheezes. Saline locked. D/C uncertain.
[2017-02-24] MEDS: MONTELUKAST SOD 10 MG TAB PO SCH ×2 (00:05→20:36)
[2017-02-24] MEDS: ENOXAPARIN 40 MG/0.4 ML SYR SC SCH ×2 (00:05→20:37)
[2017-02-24] MEDS: BECLOMETHASONE HFA 40 MCG INHALER INH SCH ×2 (00:05→08:27)
[2017-02-24] MEDS: METHYLPREDNISOLONE IV 60 MG in SYRINGE 0 ML IV SCH ×2 (02:36→08:27)
[2017-02-24] MEDS: ALBUT/IPRATROP 3MG/0.5MG NEB 3 ML VIAL INH SCH ×3 (04:05→11:28)
[2017-02-24 06:58] LABS: HEMATOCRIT 35.4 % (37-47); HEMOGLOBIN 11.1 g/dL (12.0-16.0); MEAN CORPUSCULAR HEMOGLOBIN 21.9 pg (25-34); MEAN CORPUSCULAR HGB CONC 31.4 g/dl (32-36); MEAN PLATELET VOLUME 9.6 fL (7.4-10.4); PLATELET COUNT 251 K/uL (130-400); RED CELL DISTRIBUTION WIDTH SD 42.5 fL (36.4-46.3); WHITE BLOOD COUNT 21.86 K/uL (4.8-10.8)
[2017-02-24 07:15] LABS: IG# 0.08 K/uL (0.00-0.02); LYMPH % 5.7 %; LYMPH ABS # 1.25 K/uL (1.2-3.4); NEUT % 88.9 %; NEUT ABS # 19.43 K/uL (1.4-6.5)
[2017-02-24 07:27] LABS: CALCIUM 9.1 mg/dl (8.5-10.1); CREATININE 0.67 mg/dl (0.60-1.20); POTASSIUM 4.2 mmol/L (3.5-5.1)
--- NOTE | 2017-02-24 08:00 | NUR ---
Pt AAOx4 with no complaints this AM. On 60%high flow with sats just above 90. Pt is WITT but comfortable in bed. VSS. Family at bedside. COntinue IV steroids and inhalers. Titrate o2 down as tolerated. Needs addressed and call waite in reach.
[2017-02-24] MEDS: CETIRIZINE HCL 10 MG TAB PO SCH (08:27)
--- NOTE | 2017-02-24 11:45 | Family Medicine Progress Note ---
Progress Note Date of Service Feb 24, 2017. Subjective Pt evaluation today including: conversation w/ patient, conversation w/ family , physical exam, chart review, lab review, review of inpatient medication list Pain: No pain reported PO Intake: Tolerating PO intake Voiding: no voiding problems Ms. Cadet reports she feels 75% better today. She states her breathing has improved. She reports she is coughing more than yesterday. She states that her chest remains tight, particularly when walking a few feet or if she talks a lot. Regarding the history of her asthma, she reports she was diagnosed as a child and it was very well controlled up until October, when she started having frequent exacerbations. She thought it may have been due to her pet cat, so she gave the cat away, but that has not helped. She did move into a new apartment around October, and states she has seen mold around the windows in her new apartment. She previously saw a pulmonary doctor in 2013, but her asthma was well controlled then. She states she has not seen an water softener servicer. Constitutional: No fever, No chills Respiratory: + cough, + wheezing, + shortness of breath, No sputum Cardiovascular: No chest pain, No edema Abdomen: No pain, No nausea, No vomiting, No diarrhea, No constipation All Other Systems: Reviewed and Negative Medications Current Inpatient Medications Medications (Trade) Dose Ordered Sig/Kemal Route Start Time Stop Time Status Last Admin Dose Admin Ioversol (Optiray 320) 100 ml UD PRN IV 02/23/17 14:00 02/27/17 13:59 Enoxaparin Sodium (Lovenox Inj) 40 mg Q24H SC 02/23/17 21:00 03/25/17 20:59 Acetaminophen (Tylenol Tab) 650 mg Q4H PRN PO 02/23/17 15:45 03/25/17 15:44 Al Hydrox/Mg Hydrox/Simethicone (Maalox Max Susp) 15 ml Q4H PRN PO 02/23/17 15:45 03/25/17 15:44 Magnesium Hydroxide (Milk Of Magnesia Susp) 30 ml Q12H PRN PO 02/23/17 15:45 03/25/17 15:44 Ondansetron HCl (Zofran Inj) 4 mg Q6H PRN IV 02/23/17 15:45 1/19/18 15:44 Morphine Sulfate (MoRPHine SULFATE INJ) 2 mg Q30M PRN IV 02/23/17 15:45 03/09/17 15:44 Polyethylene (Miralax Powder Packet) 17 gm DAILY PRN PO 02/23/17 15:45 03/25/17 15:44 Albuterol (Ventolin Hfa Inhaler) 2 puffs QID PRN INH 02/23/17 15:45 03/25/17 15:44 Cetirizine HCl (zyrTEC TAB) 5 mg DAILY PO 02/24/17 09:00 03/26/17 08:59 02/24/17 08:27 5 MG Levofloxacin 750 mg/Prmx 150 ml @ 100 mls/hr Q24H IV 02/24/17 16:00 03/02/17 15:59 Ketorolac Tromethamine (Toradol Inj) 30 mg Q6H PRN IV 02/23/17 17:30 02/28/17 17:29 02/23/17 20:02 30 MG Montelukast Sodium (Singulair Tab) 10 mg HS PO 02/23/17 21:00 03/25/17 20:59 02/24/17 00:05 10 MG Methylprednisolone Sodium Succinate 40 mg/Syringe 0.64 ml @ 1.5 mls/min Q8 IV 02/24/17 14:00 03/25/17 19:59 UNV Levalbuterol (Xopenex 0.63 Mg/ 3 Ml Neb) 0.63 mg Q6R INH 02/24/17 15:00 03/26/17 14:59 UNV Objective Vital Signs Date Time Temp Pulse Resp B/P (MAP) Pulse Ox O2 Delivery O2 Flow Rate FiO2 02/24/17 12:00 94 High Flow Oxygen 30.0 60 02/24/17 11:29 103 22 93 Nasal Cannula 02/24/17 10:41 36.4 95 20 123/68 (86) 90 High Flow Oxygen 02/24/17 08:26 36.7 96 22 114/72 (86) 92 High Flow Oxygen 55 02/24/17 08:00 92 High Flow Oxygen 30.0 60 02/24/17 07:02 101 22 96 Nasal Cannula 02/24/17 04:05 110 22 94 Nasal Cannula 02/24/17 04:00 High Flow Oxygen 30.0 02/24/17 03:55 36.8 97 22 120/74 (89) 97 High Flow Oxygen 02/24/17 00:00 High Flow Oxygen 30.0 02/23/17 23:05 36.9 110 20 143/60 (87) 92 High Flow Oxygen 02/23/17 20:05 95 Nasal Cannula 35.0 60 02/23/17 19:07 112 22 95 Nasal Cannula 02/23/17 16:56 36.9 132 24 147/79 90 Nasal Cannula 35.0 60 02/23/17 16:52 90 Diffusion Mask 8.0 02/23/17 16:20 120 26 96 Oxymask 8.0 02/23/17 15:58 97 Oxymask 8.0 02/23/17 15:49 127 26 95 Oxymask 9.0 02/23/17 15:36 89 Nasal Cannula 6.0 02/23/17 15:20 130 26 132/64 92 Nasal Cannula 6.0 02/23/17 14:23 122 22 152/97 92 Nebulizer 8.0 02/23/17 14:03 122 02/23/17 13:47 117 28 92 Nasal Cannula 3.0 Physical Exam General Appearance: WD/WN, no apparent distress, + pertinent finding (on high flow oxygen) Neck: + pertinent finding (acanthosis nigricans) Respiratory/Chest: chest non-tender, no respiratory distress, no accessory muscle use, + decreased breath sounds, + wheezing Cardiovascular: regular rate, rhythm, no edema, no gallop, no JVD, no murmur, + tachycardia Abdomen: normal bowel sounds, non tender, soft, no organomegaly, no pulsatile mass Laboratory Results Last 24 Hours Test 02/23/17 13:41 02/23/17 20:48 02/23/17 20:55 02/23/17 21:05 Bedside Hemoglobin 12.9 g/dl 11.6 g/dl Bedside Hematocrit 38 % 34 % Bedside Sodium 140 mEq/L 139 mEq/L Bedside Potassium 4.2 mEq/L 4.3 mEq/L Bedside Chloride 108 mEq/L Bedside Total CO2 20 mEq/l Anion Gap 17.0 mmol/L Bedside Blood Urea Nitrogen 6 mg/dl Bedside Creatinine 0.5 mg/dl Bedside Glucose (other) 154 mg/dl Bedside Ionized Calcium (Giles) 1.24 mmol/l Bedside Blood Gas pH (LAB) 7.39 Bedside Blood Gas pCO2 (LAB) 31 mmHg Bedside Blood Gas pO2 (LAB) 68 mmHg Bedside Blood Gas HCO3 (LAB) 19 meq/L Bedside Blood Gas Total CO2 19 mEq/l Bedside Blood Gas Base Excess (LAB) -6.0 meq/L Bedside Blood Gas O2 Saturation 94.0 % Troponin I < 0.015 ng/ml Influenza Type A (RT-PCR) Neg for Influ A Influenza Type A Antigen Neg for Influ A Influenza Type B Antigen Neg for Influ B Influenza Type B (RT-PCR) Neg for Influ B Test 02/23/17 22:46 02/24/17 01:30 02/24/17 06:25 Arterial Blood pH 7.40 Arterial Blood Partial Pressure CO2 35 mmHg Arterial Blood Partial Pressure O2 78 mm/Hg Arterial Blood HCO3 21 mmol/L Arterial Blood Oxygen Saturation 95.2 % Arterial Blood Base Excess -2.8 mEq/L Arterial Blood Gas Delivery 35L Jonathan Test POS Urine Color YELLOW Urine Appearance TURBID Urine pH 5.0 Urine Specific [place] 1.035 Urine Protein NEG Urine Glucose (UA) NEG Urine Ketones TRACE Urine Occult Blood NEG Urine Nitrite NEG Urine Bilirubin NEG Urine Urobilinogen NEG Urine Leukocyte Esterase NEG Urine WBC (Auto) 10-30 /hpf Urine RBC (Auto) 0-4 /hpf Urine Hyaline Casts (Auto) 5-10 /lpf Urine Epithelial Cells (Auto) >30 /lpf Urine Bacteria (Auto) 1+ Urine Test NEG White Blood Count 21.86 K/uL Red Blood Count 5.06 M/uL Hemoglobin 11.1 g/dL Hematocrit 35.4 % Mean Corpuscular Volume 70.0 fL Mean Corpuscular Hemoglobin 21.9 pg Mean Corpuscular Hemoglobin Concent 31.4 g/dl Platelet Count 251 K/uL Mean Platelet Volume 9.6 fL Neutrophils (%) (Auto) 88.9 % Lymphocytes (%) (Auto) 5.7 % Monocytes (%) (Auto) 5.0 % Eosinophils (%) (Auto) 0.0 % Basophils (%) (Auto) 0.0 % Neutrophils # (Auto) 19.43 K/uL Lymphocytes # (Auto) 1.25 K/uL Monocytes # (Auto) 1.10 K/uL Eosinophils # (Auto) 0.00 K/uL Basophils # (Auto) 0.00 K/uL RDW Standard Deviation 42.5 fL RDW Coefficient of Variation 17.0 % Immature Granulocyte % (Auto) 0.4 % Immature Granulocyte # (Auto) 0.08 K/uL Microcytosis PRESENT Sodium Level 136 mmol/L Potassium Level 4.2 mmol/L Chloride Level 107 mmol/L Carbon Dioxide Level 21 mmol/L Anion Gap 8.0 mmol/L Blood Urea Nitrogen 10 mg/dl Creatinine 0.67 mg/dl Est Creatinine Clear Calc Drug Dose 150.9 ml/min Estimated GFR () 143.6 Estimated GFR (Non- 123.9 BUN/Creatinine Ratio 15.4 Random Glucose 128 mg/dl Calcium Level 9.1 mg/dl Assessment and Plan Ms. Cadet is a 21 year old female with multiple recent asthma exacerbations who presented with persistent shortness of breath and hypoxia despite recent treatment, also found to have a multifocal pneumonia on CTA. Acute Hypoxic Respiratory Failure secondary to Asthma Exacerbation, failed outpatient treatment - thank you to pulmonary for consult. Recommendations: - decrease Solumedrol to 40mg IV q8h, will transition to PO when stable - Continue oxygen, maintain sats >92% - Continue Xopenox nebs q6h - d/c qvar as on systemic steroids - discharge with combo ICS/LABA - given longstanding steroid use, will check HbA1c Multifocal pneumonia - Transition IV levaquin to PO - day 2/5 - negative for influenza, RSV pending Allergic rhinitis - Continue cetirizine qam - Continue Singulair 10mg qPM Tachycardia - Likely from Albuterol & secondary to hypoxia/infection - PE was ruled out, but will continue to monitor on telemetry. Anemia - Hgb 11.1 and MCV 70 - possible iron deficiency anemia - will check iron studies Headache - Toradol PRN Dispo: remains on telemetry Code status: Full. Pt understands if she worsens, she may need to be intubated. VTE: Lovenox Resident Physician Supervision Note: I was present with PGY1 Dr. Leah Nieto during the history and exam. I discussed the case with the resident and agree with the findings and plan as documented in the note. Any exceptions or clarifications are listed here: none. Pt feels better. Still with cough/wheeze/dyspnea but not as severe. Tele - sinus tach only. VSS gen - no distress neck - no JVD heart - tachy lungs - airation improved today; wheezes b/l; no increased WOB abd - soft, NT, ND skin - acanthosis nigricans neck ext - no edema A/P: 1. acute hypoxic resp failure 2nd to status asthmaticus - slowly improving; wean HFNC, cont steroids, nebs 2. severe persistent asthma at baseline - change qvar to advair or symbicort; add singulair; appreciate pulmonary consult 3. severe asthma exacerbation - as above 4. hyperglycemia, acanthosis - check a1c, r/o T2DM 5. microcytic anemia - check Fe studies 6. b/l lower lobe pneumonia - levaquin; flu neg; awaiting RSV making slow progress Documented By: Jorje Maurer MD Resident Tracking Resident Involvement: Resident Care Provided Care Provided: Adult Hospital Medicine
--- NOTE | 2017-02-24 12:00 | NUR ---
Pt reassessment unchanged. VSS on 60% hi flow. WITT. Denies SOB while resting in bed. Needs addressed and call waite in reach.
--- NOTE | 2017-02-24 12:02 | Pulmonary Consultation ---
History General Date of Service: Feb 24, 2017. Stated Complaint: Asthma Exacerbation, Sirs, Failure Of Outpatient.. HPI Patient is a 21 yo female with asthma who presented to the ED with concerns of worsening SOB. The patient has been to the ED once per month for the past 5 months for concerns of asthma exacerbation. She was admitted to the hospital in October with exacerbation. She states that when she was little, she was diagnosed with asthma and given a rescue inhaler. Since that time, she had also been diagnosed with a long list of allergens but has a hard time avoiding all of them. She does have notable allergies to pets, but recently gave her cat away to see if she could help her asthma symptoms. As a child, she was admitted to the hospital 'a few times' when she would get really sick with her asthma as well. She has never been intubated. Otherwise, as a young adult, she has not had any problems with her asthma up until recently. She does have a nebulizer and rescue inhaler at home that she was not using often until October. She moved into a new apartment in October which is when she feels that her symptoms worsened and became more frequent. She has noted some dark mold around the windows at her apartment which she has been unable to eradicate. She has been utilizing her nebulizer and rescue albuterol inhaler multiple times per week and sometimes multiple times per day at home. The patient was also placed on Qvar 40 mcg 2 puffs BID by [facility] in December. She has not felt that her symptoms improved much on that medication. She has noted increased coughing. She denies allergy to aspirin or ibuprofen. She is PCN allergic. She does have a shrimp allergy and questionable lactose intolernace (GI disturbances with lactose) but no other food allergies that she knows of. She has never noted rash with her symptoms. She denies exposure to TB, recent travel outside of the country, or exercise induced asthma. 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 She does have chest heaviness and sometimes left-sided chest pain with her SOB. She denies worse symptoms at night. She does have multiple Peak flow meters at home and is currently having pre- and post- treatment Peak flow completed. She states that her baseline peak flow when she is feeling good is around 400, and on bad days she gets as low as 150. She does have nasal congestion frequently for which she uses Flonase at home. She has had nose bleeds recently from this medication. She also notes post- nasal drip sometimes but not often. She purchased a humidifier approximately 1 month ago but has not noted improvements in her symptoms. She denies history of chronic sinus infections or nasal polyps. She is also on Xyzal (Levocetirizine) at home for allergies daily as well. She recently was treated with courses of prednisone during her asthma exacerbations but has not required antibiotic therapy until current exacerbation. She is on IV Levaquin. She did have an episode of sweating prior to admission but otherwise denies fever, night sweats, chills, N/V/D, chest pain , or sputum production. Since admission, the patient was placed on IV Solu-Medrol 60 mg Q. 6h, Montelukast, Levofloxacin, Duoneb, and continued on Qvar BID and albuterol PRN. She is also currently on high flow O2 with a rate of 30 and FiO2 of 55. Labs reviewed: WBC 13.35 on admission Creatinine 0.67 BUN 10 Serum bicarb 21 Troponin negative ABG on admission: pH 7.39 pCO2 31 pO2 68 HCO3 19 O2 Sat 94 Chest CTA 02/23: No evidence of PE. Few scattered patchy groundglass opacities. Images viewed by me and reviewed with Dr. Boykin. Chest X-Ray: No active disease in the chest. Urine culture pending. Historian: patient Review of Systems Constitutional: reports: weight gain (prednisone over past few months on and off), denies: chills, fever Eyes: denies: eye pain, itching, redness ENT: denies: loss of hearing Cardiovascular: reports: chest pressure, chest tightness Respiratory: reports: cough, shortness of breath, wheezing, denies: sputum production Gastrointestinal: denies: abdominal pain, nausea, vomiting Genitourinary - Female: denies: Integumentary: denies: rash, itching Neurologic: denies: headache All Other Symptoms All Other Systems: Reviewed and Negative Past Medical History Past Medical History: Medical Problems: (1) ACL tear (2) Asthma (3) Failure of outpatient treatment (4) Failure of outpatient treatment (5) SIRS (systemic inflammatory response syndrome) Family History Diabetes mellitus Hypertension Social History Smoking Status: Never Smoker Marital status: single, in relationship 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 Immunizations History of Influenza Vaccine: Unknown History of Tetanus Vaccine?: Unknown History of Pneumococcal: Unknown History of Hepatitis B Vaccine: Unknown History of MDRO History of MDRO: No Allergies Coded Allergies: Cat Dander (Verified Allergy, Severe, SHORTNESS OF BREATH, 02/23/17) Dog Dander (Verified Allergy, Severe, SHORTNESS OF BREATH, 02/23/17) Shrimp (Verified Allergy, Severe, lips itch and swell, 02/23/17) Penicillins (Verified Adverse Reaction, Unknown, UNKN, 02/23/17) Current Medications Reported Home Medications Medications Dose Route/Sig Max Daily Dose Days Date Category Monodox (Doxycycline Monohydrate) 100 Mg Cap 100 Mg PO BID 10 02/23/17 Rx Prednisone 50 Mg Tab 50 Mg PO DAILY 5 02/23/17 Rx Qvar (Beclomethasone Dip) 120 Puffs/4800 Mcg Aers 1 Puff PO AMPM 02/23/17 Reported Xyzal Allergy 24Hr (Levocetirizine Dihydrochloride) 5 Mg Tab 5 Mg PO DAILY 11/15/16 Reported Vitamin B Complex (B-Complex Vitamins) 1 Tab Tab 1 Tab PO DAILY 11/15/16 Reported Ventolin Hfa (Albuterol) 200 Puffs/77549 Mcg Aers 2 Puff INH QID PRN 10/15/16 Rx Echinacea Unknown Strength Cap 1 Tab PO DAILY 10/14/16 Reported Vitamin C (Ascorbic Acid) 500 Mg Cap 1 Tab PO DAILY 10/14/16 Reported Physical Physical Exam Vital Signs: Date Time Temp Pulse Resp B/P (MAP) Pulse Ox O2 Delivery O2 Flow Rate FiO2 02/24/17 11:29 103 22 93 Nasal Cannula 02/24/17 08:26 36.7 96 22 114/72 (86) 92 High Flow Oxygen 55 02/24/17 08:00 92 High Flow Oxygen 30.0 60 02/24/17 07:02 101 22 96 Nasal Cannula 02/24/17 04:05 110 22 94 Nasal Cannula 02/24/17 04:00 High Flow Oxygen 30.0 02/24/17 03:55 36.8 97 22 120/74 (89) 97 High Flow Oxygen 02/24/17 00:00 High Flow Oxygen 30.0 02/23/17 23:05 36.9 110 20 143/60 (87) 92 High Flow Oxygen 02/23/17 20:05 95 Nasal Cannula 35.0 60 02/23/17 19:07 112 22 95 Nasal Cannula 02/23/17 16:56 36.9 132 24 147/79 90 Nasal Cannula 35.0 60 02/23/17 16:52 90 Diffusion Mask 8.0 02/23/17 16:20 120 26 96 Oxymask 8.0 02/23/17 15:58 97 Oxymask 8.0 02/23/17 15:49 127 26 95 Oxymask 9.0 02/23/17 15:36 89 Nasal Cannula 6.0 02/23/17 15:20 130 26 132/64 92 Nasal Cannula 6.0 02/23/17 14:23 122 22 152/97 92 Nebulizer 8.0 02/23/17 14:03 122 02/23/17 13:47 117 28 92 Nasal Cannula 3.0 02/23/17 13:06 36.9 122 24 134/78 85 Room Air General Appearance: mild distress (respiratory), obese Head: NORMOCEPHALIC, ATRAUMATIC Eyes: NO DISCHARGE, SCLERAE NORMAL Neck: NORMAL RANGE OF MOTION, TRACHEA MIDLINE, NO STRIDOR Respiratory: wheezing (high pitched soft wheezing heard throughout lung menendez. High flow O2 in place) Cardiovasular: other (Tachycardia) Abdomen: NORMAL BOWEL SOUNDS Back: NORMAL INSPECTION Lower Extremities: NORMAL ROM Neuro: ALERT, ORIENTED x 3 Psychiatric: NORMAL AFFECT Diagnostics Labs Results Past 24 Hours Test 02/23/17 13:30 02/23/17 13:41 02/23/17 20:48 02/23/17 20:55 Range/Units White Blood Count 13.35 4.8-10.8 K/uL Red Blood Count 5.58 4.2-5.4 M/uL Hemoglobin 12.3 12.0-16.0 g/dL Hematocrit 38.3 37-47 % Mean Corpuscular Volume 68.6 80-100 fL Mean Corpuscular Hemoglobin 22.0 25-34 pg Mean Corpuscular Hemoglobin Concent 32.1 32-36 g/dl Platelet Count 280 130-400 K/uL Mean Platelet Volume 10.2 7.4-10.4 fL Neutrophils (%) (Auto) 91.8 % Lymphocytes (%) (Auto) 6.7 % Monocytes (%) (Auto) 1.0 % Eosinophils (%) (Auto) 0.1 % Basophils (%) (Auto) 0.1 % Neutrophils # (Auto) 12.26 1.4-6.5 K/uL Lymphocytes # (Auto) 0.90 1.2-3.4 K/uL Monocytes # (Auto) 0.13 0.11-0.59 K/uL Eosinophils # (Auto) 0.01 0-0.5 K/uL Basophils # (Auto) 0.01 0-0.2 K/uL RDW Standard Deviation 40.2 36.4-46.3 fL RDW Coefficient of Variation 16.2 11.5-14.5 % Immature Granulocyte % (Auto) 0.3 % Immature Granulocyte # (Auto) 0.04 0.00-0.02 K/uL Microcytosis PRESENT Prothrombin Time 10.4 9.0-12.0 SECONDS Prothromb Time International Ratio 1.0 0.9-1.1 Activated Partial Thromboplast Time 26.8 21.0-31.0 SECONDS Partial Thromboplastin Ratio 1.0 Sodium Level 136 136-145 mmol/L Potassium Level 4.3 3.5-5.1 mmol/L Chloride Level 107 98-107 mmol/L Carbon Dioxide Level 19 21-32 mmol/L Anion Gap 10.0 17.0 16-25 mmol/L Blood Urea Nitrogen 8 7-18 mg/dl Creatinine 0.82 0.60-1.20 mg/dl Est Creatinine Clear Calc Drug Dose 122.1 ml/min Estimated GFR () 116.9 Estimated GFR (Non- 100.9 BUN/Creatinine Ratio 9.5 10-20 Random Glucose 143 70-99 mg/dl Calcium Level 9.6 8.5-10.1 mg/dl Total Creatine Kinase 191 26-192 U/L Creatine Kinase MB 0.8 0.5-3.6 ng/ml Creatine Kinase MB Ratio 0.4 0-3.0 Troponin I < 0.015 < 0.015 0-0.045 ng/ml Bedside Hemoglobin 12.9 11.6 12.0-16.0 g/dl Bedside Hematocrit 38 34 37-47 % Bedside Sodium 140 139 135-144 mEq/L Bedside Potassium 4.2 4.3 3.3-5.0 mEq/L Bedside Chloride 108 101-112 mEq/L Bedside Total CO2 20 24-31 mEq/l Bedside Blood Urea Nitrogen 6 7-18 mg/dl Bedside Creatinine 0.5 0.6-1.3 mg/dl Bedside Glucose (other) 154 70-99 mg/dl Bedside Ionized Calcium (Giles) 1.24 1.12-1.32 mmol/l Bedside Blood Gas pH (LAB) 7.39 7.35-7.45 Bedside Blood Gas pCO2 (LAB) 31 35-46 mmHg Bedside Blood Gas pO2 (LAB) 68 80-95 mmHg Bedside Blood Gas HCO3 (LAB) 19 19-24 meq/L Bedside Blood Gas Total CO2 19 24-31 mEq/l Bedside Blood Gas Base Excess (LAB) -6.0 -9-1.8 meq/L Bedside Blood Gas O2 Saturation 94.0 90-95 % Test 02/23/17 21:05 02/23/17 22:46 02/24/17 01:30 02/24/17 06:25 Range/Units Influenza Type A (RT-PCR) Neg for Influ A NEG Influenza Type A Antigen Neg for Influ A NEG Influenza Type B Antigen Neg for Influ B NEG Influenza Type B (RT-PCR) Neg for Influ B NEG Arterial Blood pH 7.40 7.35-7.45 Arterial Blood Partial Pressure CO2 35 35-46 mmHg Arterial Blood Partial Pressure O2 78 80-95 mm/Hg Arterial Blood HCO3 21 19-24 mmol/L Arterial Blood Oxygen Saturation 95.2 90-95 % Arterial Blood Base Excess -2.8 -9-1.8 mEq/L Arterial Blood Gas Delivery 35L Jonathan Test POS POS Urine Color YELLOW Urine Appearance TURBID CLEAR Urine pH 5.0 4.5-7.5 Urine Specific Dozier 1.035 1.000-1.030 Urine Protein NEG NEG Urine Glucose (UA) NEG NEG Urine Ketones TRACE NEG Urine Occult Blood NEG NEG Urine Nitrite NEG NEG Urine Bilirubin NEG NEG Urine Urobilinogen NEG NEG Urine Leukocyte Esterase NEG NEG Urine WBC (Auto) 10-30 0-5 /hpf Urine RBC (Auto) 0-4 0-4 /hpf Urine Hyaline Casts (Auto) 5-10 0-5 /lpf Urine Epithelial Cells (Auto) >30 0-5 /lpf Urine Bacteria (Auto) 1+ NEG Urine Test NEG NEG White Blood Count 21.86 4.8-10.8 K/uL Red Blood Count 5.06 4.2-5.4 M/uL Hemoglobin 11.1 12.0-16.0 g/dL Hematocrit 35.4 37-47 % Mean Corpuscular Volume 70.0 80-100 fL Mean Corpuscular Hemoglobin 21.9 25-34 pg Mean Corpuscular Hemoglobin Concent 31.4 32-36 g/dl Platelet Count 251 130-400 K/uL Mean Platelet Volume 9.6 7.4-10.4 fL Neutrophils (%) (Auto) 88.9 % Lymphocytes (%) (Auto) 5.7 % Monocytes (%) (Auto) 5.0 % Eosinophils (%) (Auto) 0.0 % Basophils (%) (Auto) 0.0 % Neutrophils # (Auto) 19.43 1.4-6.5 K/uL Lymphocytes # (Auto) 1.25 1.2-3.4 K/uL Monocytes # (Auto) 1.10 0.11-0.59 K/uL Eosinophils # (Auto) 0.00 0-0.5 K/uL Basophils # (Auto) 0.00 0-0.2 K/uL RDW Standard Deviation 42.5 36.4-46.3 fL RDW Coefficient of Variation 17.0 11.5-14.5 % Immature Granulocyte % (Auto) 0.4 % Immature Granulocyte # (Auto) 0.08 0.00-0.02 K/uL Microcytosis PRESENT Sodium Level 136 136-145 mmol/L Potassium Level 4.2 3.5-5.1 mmol/L Chloride Level 107 98-107 mmol/L Carbon Dioxide Level 21 21-32 mmol/L Anion Gap 8.0 3-11 mmol/L Blood Urea Nitrogen 10 7-18 mg/dl Creatinine 0.67 0.60-1.20 mg/dl Est Creatinine Clear Calc Drug Dose 150.9 ml/min Estimated GFR () 143.6 Estimated GFR (Non- 123.9 BUN/Creatinine Ratio 15.4 10-20 Random Glucose 128 70-99 mg/dl Calcium Level 9.1 8.5-10.1 mg/dl Microbiology Results 02/24/17 Urine Culture, Received Pending Diagnostic Radiology CHEST CTA for PULMONARY ARTERIES CT DOSE: 530.63 mGy.cm HISTORY: Short of breath. TECHNIQUE: Multiaxial CT images of the chest were performed following the intravenous administration of contrast to evaluate the pulmonary arteries. Maximal intensity projection images were also obtained. A dose lowering technique was utilized adhering to the principles of ALARA. COMPARISON STUDY: Chest 02/23/2017. FINDINGS: Normal caliber thoracic aorta with no evidence for dissection. Motion artifact results in nondiagnostic evaluation within the majority of the left lower lobe segmental pulmonary arteries and right middle lobe segmental pulmonary arteries. Otherwise, no filling defects within the remaining pulmonary arteries to suggest evidence for pulmonary embolus. The visualized liver, spleen, and adrenal glands are unremarkable. No mediastinal or hilar lymphadenopathy. No pleural effusions. No pneumothorax. A few scattered patchy groundglass airspace opacities seen within the lungs, most pronounced within the lower lobes. IMPRESSION: 1. No evidence for pulmonary embolus with limitations as described above. 2. A few scattered patchy groundglass airspace opacities within the lungs most pronounced within the lower lobes. This favors a multifocal pneumonia. Impression Assessment and Plan Asthma with acute exacerbation Acute hypoxic respiratory failure Allergic rhinitis Bibasilar scattered lung opacities Tachycardia Patient with acute hypoxic respiratory failure with asthma exacerbation and multiple recent asthma exacerbations. She does also appear to have allergies that are not well controlled with continued exposure to allergens. -Patient on high flow O2. Recommend titrating O2 supplementation as tolerated and to keep SaO2 >92%. -Continue IV Solu-Medrol- will taper to 40 mg Q 8h at this time. Will continue to taper with improvement. -D/C Qvar while on systemic steroids. Once able to taper to PO Prednisone, recommend addition of combo ICS/LABA such as Advair 250, Breo 200, or Symbicort 160 (whatever is covered best by insurance is fine). She is poorly controlled on current regimen of Qvar alone with rescue inhaler/nebulizer. -Currently patient is on Duoneb. Will D/C Duoneb and change to Xopenex. With continued tachycardia, feel Xopenex is better option for now. -Agree with addition of Montelukast. Seems likely that patient has continued exposure to allergens which is worsening her asthma. Patient should continue this medication along with Xyzal or another H1-casey like loratadine or cetirizine. Recommend Montelukast at night and H1-casey in the AM. -Continue Levaquin to completed a 5 day course pending RSV. If RSV is positive, can likely D/C Levaquin. -Continue to monitor this patient closely, if she happens to decompensate, consider transfer to ICU due to hypoxic respiratory failure on admission. We will continue to follow.
[2017-02-24] MEDS: METHYLPREDNISOLONE IV 40 MG in SYRINGE 0 ML IV SCH ×2 (14:27→22:11)
[2017-02-24] MEDS: LEVALBUTEROL 0.63MG/3 ML NEB INH SCH ×2 (14:40→19:00)
[2017-02-24] MEDS ORDERED: LEVOFLOXACIN / D5W 750 MG in PREMIXED IN D5W 150 ML IV SCH (16:00)
[2017-02-24] MEDS ORDERED: LEVOFLOXACIN 750 MG TAB PO ONE (16:00)
--- NOTE | 2017-02-24 16:00 | NUR ---
Pt sitting in high fowlers in bed. High flow NC on at 60 % and 30. O2 sat mid to high 90's. Patient BS diminished with expiratory wheezes upper lobes. Poor activity tolerence. Pt to BR without O@ and her sat 73%
--- NOTE | 2017-02-24 20:20 | NUR ---
Pt reports a DELGADO. No c/o CP or anxiety. High flow on. Medicated with Toradol. Lungs with ronchi. Better air movement. Visitor at bedside.
[2017-02-24] MEDS: KETOROLAC TROMETHAMINE 30 MG/ML VIAL IV PRN (20:36)
[2017-02-25] VITALS (10 sets, daily range): BP systolic 103–136; BP diastolic 70–79; PULSE 77–96; TEMP 36.7–36.9; O2SAT 91–98
--- NOTE | 2017-02-25 00:15 | NUR ---
A: PT FULLY ASSESSED, SEE EMR. RESTING COMFORTABLY. NO COMPLAINTS AT THIS TIME. A&O, VSS, DENIES PAIN. LUNG SOUNDS VERY DIMINISHED THROUGHOUT WITH AN OCCASIONAL EXPIRATORY WHEEZE PRESENT, ON HIGH FLOW O2 AT 45%, 30L. NSR ON MONITOR, RATE 90'S. NO EDEMA. INDEPENDENT AND AMBULATORY IN ROOM. ENCOURAGED TO RING FOR ASSISTANCE. CALL QUIROGA WITHIN REACH, WILL CONTINUE TO MONITOR.
[2017-02-25] MEDS: LEVALBUTEROL 0.63MG/3 ML NEB INH SCH ×4 (01:37→19:20)
[2017-02-25] MEDS: METHYLPREDNISOLONE IV 40 MG in SYRINGE 0 ML IV SCH ×3 (05:49→20:48)
[2017-02-25 06:29] LABS: BASO % 0.1 %; BASO ABS # 0.01 K/uL (0-0.2); EOS % 0.1 %; EOS ABS # 0.01 K/uL (0-0.5); HEMATOCRIT 33.5 % (37-47); HEMOGLOBIN 10.8 g/dL (12.0-16.0); LYMPH % 7.2 %; LYMPH ABS # 1.42 K/uL (1.2-3.4); MEAN CELL VOLUME 70.2 fL (80-100); MEAN CORPUSCULAR HEMOGLOBIN 22.6 pg (25-34); MEAN CORPUSCULAR HGB CONC 32.2 g/dl (32-36); MEAN PLATELET VOLUME 10.1 fL (7.4-10.4); MONO % 6.2 %; MONO ABS # 1.22 K/uL (0.11-0.59); NEUT % 85.9 %; NEUT ABS # 17.04 K/uL (1.4-6.5); NUCLEATED RED BLOOD CELL ABS 0.02 K/uL (0-0); PLATELET COUNT 270 K/uL (130-400); RED CELL DISTRIBUTION WIDTH SD 43.7 fL (36.4-46.3)
--- NOTE | 2017-02-25 06:52 | Family Medicine Progress Note ---
Progress Note Date of Service Feb 25, 2017. Subjective Pt evaluation today including: conversation w/ patient, physical exam, chart review, lab review, review of inpatient medication list Pain: No pain reported PO Intake: Tolerating PO intake Voiding: no voiding problems Ms. Cadet reports she feels slightly better today. She states her chest tightness is still present, particularly when she gets up to walk a few feet. She reports that her cough is now productive of dark green sputum and that she had one episode of coughing where her phlegm had a tinge of blood, but that has not happened since. She denies chest pain, n/v, abdominal pain. With regards to her menstrual cycle, she reports they are generally irregular and quite heavy, she states previously she would go 2-3 months without a period. She has recently started on a control pill but states that now she gets a period once every 2-3 weeks. She denies hirsutism or acne. Constitutional: No fever, No chills Respiratory: + cough, + sputum, + dyspnea on exertion, + hemoptysis Cardiovascular: No chest pain Abdomen: No pain, No nausea, No vomiting, No diarrhea, No constipation All Other Systems: Reviewed and Negative Medications Current Inpatient Medications Medications (Trade) Dose Ordered Sig/Kemal Route Start Time Stop Time Status Last Admin Dose Admin Ioversol (Optiray 320) 100 ml UD PRN IV 02/23/17 14:00 02/27/17 13:59 Enoxaparin Sodium (Lovenox Inj) 40 mg Q24H SC 02/23/17 21:00 03/25/17 20:59 02/24/17 20:37 40 MG Acetaminophen (Tylenol Tab) 650 mg Q4H PRN PO 02/23/17 15:45 03/25/17 15:44 Al Hydrox/Mg Hydrox/Simethicone (Maalox Max Susp) 15 ml Q4H PRN PO 02/23/17 15:45 03/25/17 15:44 Magnesium Hydroxide (Milk Of Magnesia Susp) 30 ml Q12H PRN PO 02/23/17 15:45 03/25/17 15:44 Ondansetron HCl (Zofran Inj) 4 mg Q6H PRN IV 02/23/17 15:45 03/25/17 15:44 Morphine Sulfate (MoRPHine SULFATE INJ) 2 mg Q30M PRN IV 02/23/17 15:45 03/09/17 15:44 Polyethylene (Miralax Powder Packet) 17 gm DAILY PRN PO 02/23/17 15:45 03/25/17 15:44 Albuterol (Ventolin Hfa Inhaler) 2 puffs QID PRN INH 02/23/17 15:45 03/25/17 15:44 Cetirizine HCl (zyrTEC TAB) 5 mg DAILY PO 02/24/17 09:00 03/26/17 08:59 02/25/17 08:10 5 MG Ketorolac Tromethamine (Toradol Inj) 30 mg Q6H PRN IV 02/23/17 17:30 02/28/17 17:29 02/24/17 20:36 30 MG Montelukast Sodium (Singulair Tab) 10 mg HS PO 02/23/17 21:00 03/25/17 20:59 02/24/17 20:36 10 MG Methylprednisolone Sodium Succinate 40 mg/Syringe 0.64 ml @ 1.5 mls/min Q8 IV 02/24/17 14:00 03/25/17 19:59 02/25/17 14:03 1.5 MLS/MIN Levalbuterol (Xopenex 0.63 Mg/ 3 Ml Neb) 0.63 mg Q6R INH 02/24/17 15:00 03/26/17 14:59 02/25/17 14:21 0.63 MG Levofloxacin (Levaquin Tab) 750 mg ONE ONCE PO 02/25/17 16:00 02/25/17 16:01 Sumatriptan Succinate (Imitrex Tab) 25 mg BID PRN PO 02/25/17 11:00 02/25/17 11:08 25 MG Ferrous Sulfate (Feosol Tab) 325 mg BIDM PO 02/25/17 16:45 03/27/17 16:44 Objective Vital Signs Date Time Temp Pulse Resp B/P (MAP) Pulse Ox O2 Delivery O2 Flow Rate FiO2 02/25/17 14:21 88 18 96 Nasal Cannula 3.0 02/25/17 12:00 High Flow Oxygen 30 Nasal Cannula 02/25/17 11:24 36.9 80 16 136/72 (93) 98 3.0 02/25/17 08:00 High Flow Oxygen 30 Nasal Cannula 02/25/17 07:44 36.8 90 16 121/74 (90) 95 02/25/17 07:08 94 22 97 Nasal Cannula 30.0 35 02/25/17 04:10 High Flow Oxygen 30.0 45 02/25/17 03:44 36.7 79 20 111/72 (85) 94 High Flow Oxygen 02/25/17 01:38 89 22 97 Nasal Cannula 30.0 45 02/25/17 00:10 High Flow Oxygen 30.0 45 02/24/17 23:42 36.9 108 20 134/74 (94) 94 High Flow Oxygen 02/24/17 20:14 36.9 108 18 122/66 (84) 93 02/24/17 20:00 High Flow Oxygen 30.0 45 02/24/17 19:03 109 20 96 Nasal Cannula 30.0 55 02/24/17 16:00 High Flow Oxygen 30.0 45 02/24/17 15:20 36.9 106 20 138/79 (98) 92 High Flow Oxygen Physical Exam General Appearance: WD/WN, no apparent distress, + pertinent finding (on high flow oxygen) Respiratory/Chest: chest non-tender, no respiratory distress, no accessory muscle use, + decreased breath sounds, + wheezing (scattered high pitched wheezing) Cardiovascular: regular rate, rhythm, no edema, no gallop, no JVD, no murmur Abdomen: normal bowel sounds, non tender, soft, no organomegaly, no pulsatile mass Skin: + pertinent finding (acanthosis nigricans on neck) Laboratory Results Last 24 Hours Test 02/24/17 20:32 02/25/17 05:40 02/25/17 06:55 02/25/17 10:43 Bedside Glucose 141 mg/dl 123 mg/dl 130 mg/dl White Blood Count 19.80 K/uL Red Blood Count 4.77 M/uL Hemoglobin 10.8 g/dL Hematocrit 33.5 % Mean Corpuscular Volume 70.2 fL Mean Corpuscular Hemoglobin 22.6 pg Mean Corpuscular Hemoglobin Concent 32.2 g/dl Platelet Count 270 K/uL Mean Platelet Volume 10.1 fL Neutrophils (%) (Auto) 85.9 % Lymphocytes (%) (Auto) 7.2 % Monocytes (%) (Auto) 6.2 % Eosinophils (%) (Auto) 0.1 % Basophils (%) (Auto) 0.1 % Neutrophils # (Auto) 17.04 K/uL Lymphocytes # (Auto) 1.42 K/uL Monocytes # (Auto) 1.22 K/uL Eosinophils # (Auto) 0.01 K/uL Basophils # (Auto) 0.01 K/uL RDW Standard Deviation 43.7 fL RDW Coefficient of Variation 17.0 % Immature Granulocyte % (Auto) 0.5 % Immature Granulocyte # (Auto) 0.10 K/uL Nucleated RBC Absolute Count (auto) 0.02 K/uL Nucleated Red Blood Cells % 0.1 % Sodium Level 137 mmol/L Potassium Level 4.3 mmol/L Chloride Level 108 mmol/L Carbon Dioxide Level 23 mmol/L Anion Gap 6.0 mmol/L Blood Urea Nitrogen 20 mg/dl Creatinine 0.72 mg/dl Est Creatinine Clear Calc Drug Dose 141.0 ml/min Estimated GFR () 136.8 Estimated GFR (Non- 118.0 BUN/Creatinine Ratio 28.3 Random Glucose 124 mg/dl Estimated Average Glucose 114 mg/dl Hemoglobin A1c 5.6 % Calcium Level 9.1 mg/dl Iron Level 18 mcg/dl Total Iron Binding Capacity 465 mcg/dl Ferritin 10.3 ng/ml Assessment and Plan Ms. Cadet is a 21 year old female with multiple recent asthma exacerbations who presented with persistent shortness of breath and hypoxia despite recent treatment, also found to have a multifocal pneumonia on CTA. Acute Hypoxic Respiratory Failure secondary to Asthma Exacerbation, failed outpatient treatment - thank you to pulmonary for consult. Recommendations: - continue Solumedrol 40mg IV q8h, can transition to 40mg oral prednisone in AM if she continues to improve - Continue oxygen, maintain sats >92% - Continue Xopenox nebs q6h - discharge with combo ICS/LABA - check TSH - polysomnography as outpatient - will also check Vitamin D level given correlation with asthma Multifocal pneumonia - continue levaquin 750mg PO - day 3/5 - negative for influenza, RSV pending Dysfunctional Uterine Bleeding - ?possibly PCOS given metabolic syndrome, obesity & irregular menstrual cycle - HbA1c = 5.6, likely secondary to equipment [employer] steroid use - would benefit from switching OCP to a higher dose in outpatient setting Allergic rhinitis - Continue cetirizine qam - Continue Singulair 10mg qPM Tachycardia - resolved - Likely from Albuterol & secondary to hypoxia/infection - PE ruled out Anemia - Hgb 10.8 and MCV 70 - Iron low at 18 and TIBC 465 - begin 325mg BID of iron - likely secondary to DUB Headache - Toradol was not helping with her pain - sumatriptan and promethazine for pain relief Dispo: remains on telemetry Code status: Full. Pt understands if she worsens, she may need to be intubated. VTE: Lovenox Resident Physician Supervision Note: I was present with PGY1 Dr. Leah Nieto during the history and exam. I discussed the case with the resident and agree with the findings and plan as documented in the note. Any exceptions or clarifications are listed here: none. During my visit pt was off high-flow NC O2. She feels better. Less dyspnea & wheezing. Tele stable. Main complaint is that of headache. Gets headaches at least 2x's a week. +photophobia, phonophobia & nausea. VSS gen - no distress neck - no JVD eyes - PERRL heart - RRR, s1, s2 lungs - airation again improved today; wheezes b/l but less; no increased WOB abd - soft, NT, ND skin - acanthosis nigricans neck ext - no edema A/P: 1. acute hypoxic resp failure 2nd to status asthmaticus - slowly improving; cont steroids, nebs, inhalers, incentive cortez 2. severe persistent asthma at baseline - change qvar to advair or symbicort at d/c; added singulair; appreciate pulmonary consult 3. severe asthma exacerbation - as above 4. hyperglycemia, acanthosis - a1c nearly in pre-DM range; nutrition consult for counseling on diet/weight loss 5. microcytic anemia - due to severe Fe Def anemia - likely from DUB; start iron supplementation 6. b/l lower lobe pneumonia - levaquin; flu neg; awaiting RSV; can change to PO levaquin and complete 10 days in total continues to progress wean O2 as tolerated Documented By: Jorje Maurer MD Resident Tracking Resident Involvement: Resident Care Provided Care Provided: Adult [facility]
[2017-02-25 07:02] LABS: CALCIUM 9.1 mg/dl (8.5-10.1); CREATININE 0.72 mg/dl (0.60-1.20); POTASSIUM 4.3 mmol/L (3.5-5.1)
[2017-02-25 07:03] LABS: HEMOGLOBIN A1C 5.6 % (4.5-5.6)
--- NOTE | 2017-02-25 08:00 | NUR ---
A: Nursing assessment complete and documented in emr. A&O. VS WNL. Denies pain. C/O WITT, although states this is improved. SR per tele. Lungs dim with scattered exp wheezes. Pt on hi flow NC@30%. Independent in activity. No complaints or s/s of acute distress noted. Call waite within reach and pt instructed to ring for assistance. Will continue to monitor. See emr for full assessment data.
[2017-02-25] MEDS: CETIRIZINE HCL 10 MG TAB PO SCH (08:10)
--- NOTE | 2017-02-25 10:55 | Pulmonology Progress Note ---
Pulmonary Progress Note Date of Service Feb 25, 2017. Attending Dr. Boykin Subjective Patient seen and examined. She states that she is feeling better. She is still dyspneic with exertion, however wheezing has improved. She still has intermittent coughing with intermittent sputum production. Objective VS reviewed. Gen: AAOx3, NAD, resting comfortably. CVS: S1, S2, RRR Lungs: Good air entry bilaterally, prolonged expiratory phase. Abd: soft/NT/ND/BS+, obese Ext: no edema bilaterally, no cyanosis, no clubbing Labs reviewed. Imaging reviewed. Medications reviewed. Assessment & Plan Moderate persistent asthma with exacerbation Acute hypoxic respiratory failure--improving Allergic rhinitis Bibasilar opacities Morbid obesity. Ms. Cadet is improving slowing from a respiratory standpoint. She sounds is less bronchospastic today and moving air adequately. High flow nasal canula done to 30%. - Recommend titrating O2 supplementation as tolerated and to keep SaO2 >92%. Continue to titrate off HFNC. -Continue IV Solu-Medrol- will taper to 40 mg Q 8h at this time. Switch over to prednisone 40 mg in AM -D/C Qvar while on systemic steroids. Once able to taper to PO Prednisone, recommend addition of combo ICS/LABA such as Advair 250, Breo 200, or Symbicort 160 (whatever is covered best by insurance is fine). She is poorly controlled on current regimen of Qvar alone with rescue inhaler/nebulizer. -Continue with Xopenex. -Continue with Montelukast. Seems likely that patient has continued exposure to allergens which is worsening her asthma. Patient should continue this medication along with Xyzal or another H1-casey like loratadine or cetirizine. Continue with Montelukast at night and H1-casey in the AM. -Continue Levaquin to completed a 5 day course pending RSV. If RSV is positive, can likely D/C Levaquin. -Continue with daily peak flow. -Encourage out of bed to chair -Weight loss, diet and exercise encouraged upon hospital discharge. She may have component of obesity hypoventilation syndrome contributing her hypoxia. Send TSH as well. She should have polysomnography. We will continue to follow. Data Medications: Current Inpatient Medications Medications (Trade) Dose Ordered Sig/Kemal Route Start Time Stop Time Status Last Admin Dose Admin Ioversol (Optiray 320) 100 ml UD PRN IV 02/23/17 14:00 02/27/17 13:59 Enoxaparin Sodium (Lovenox Inj) 40 mg Q24H SC 02/23/17 21:00 03/25/17 20:59 02/24/17 20:37 40 MG Acetaminophen (Tylenol Tab) 650 mg Q4H PRN PO 02/23/17 15:45 03/25/17 15:44 Al Hydrox/Mg Hydrox/Simethicone (Maalox Max Susp) 15 ml Q4H PRN PO 02/23/17 15:45 03/25/17 15:44 Magnesium Hydroxide (Milk Of Magnesia Susp) 30 ml Q12H PRN PO 02/23/17 15:45 03/25/17 15:44 Ondansetron HCl (Zofran Inj) 4 mg Q6H PRN IV 02/23/17 15:45 03/25/17 15:44 Morphine Sulfate (MoRPHine SULFATE INJ) 2 mg Q30M PRN IV 02/23/17 15:45 03/09/17 15:44 Polyethylene (Miralax Powder Packet) 17 gm DAILY PRN PO 02/23/17 15:45 03/25/17 15:44 Albuterol (Ventolin Hfa Inhaler) 2 puffs QID PRN INH 02/23/17 15:45 03/25/17 15:44 Cetirizine HCl (zyrTEC TAB) 5 mg DAILY PO 02/24/17 09:00 03/26/17 08:59 02/25/17 08:10 5 MG Ketorolac Tromethamine (Toradol Inj) 30 mg Q6H PRN IV 02/23/17 17:30 02/28/17 17:29 02/24/17 20:36 30 MG Montelukast Sodium (Singulair Tab) 10 mg HS PO 02/23/17 21:00 03/25/17 20:59 02/24/17 20:36 10 MG Methylprednisolone Sodium Succinate 40 mg/Syringe 0.64 ml @ 1.5 mls/min Q8 IV 02/24/17 14:00 03/25/17 19:59 02/25/17 05:49 1.5 MLS/MIN Levalbuterol (Xopenex 0.63 Mg/ 3 Ml Neb) 0.63 mg Q6R INH 02/24/17 15:00 03/26/17 14:59 02/25/17 07:07 0.63 MG Levofloxacin (Levaquin Tab) 750 mg ONE ONCE PO 02/25/17 16:00 02/25/17 16:01 Vital Signs: Date Time Temp Pulse Resp B/P (MAP) Pulse Ox O2 Delivery O2 Flow Rate FiO2 02/25/17 08:00 High Flow Oxygen 30 Nasal Cannula 02/25/17 07:44 36.8 90 16 121/74 (90) 95 02/25/17 07:08 94 22 97 Nasal Cannula 30.0 35 02/25/17 04:10 High Flow Oxygen 30.0 45 02/25/17 03:44 36.7 79 20 111/72 (85) 94 High Flow Oxygen 02/25/17 01:38 89 22 97 Nasal Cannula 30.0 45 02/25/17 00:10 High Flow Oxygen 30.0 45 02/24/17 23:42 36.9 108 20 134/74 (94) 94 High Flow Oxygen 02/24/17 20:14 36.9 108 18 122/66 (84) 93 02/24/17 20:00 High Flow Oxygen 30.0 45 02/24/17 19:03 109 20 96 Nasal Cannula 30.0 55 02/24/17 16:00 High Flow Oxygen 30.0 45 02/24/17 15:20 36.9 106 20 138/79 (98) 92 High Flow Oxygen 02/24/17 12:00 94 High Flow Oxygen 30.0 60 02/24/17 11:29 103 22 93 Nasal Cannula 02/24/17 10:41 36.4 95 20 123/68 (86) 90 High Flow Oxygen Laboratory Results: Last 24 Hours Test 02/24/17 20:32 02/25/17 05:40 02/25/17 06:55 Bedside Glucose 141 mg/dl 123 mg/dl White Blood Count 19.80 K/uL Red Blood Count 4.77 M/uL Hemoglobin 10.8 g/dL Hematocrit 33.5 % Mean Corpuscular Volume 70.2 fL Mean Corpuscular Hemoglobin 22.6 pg Mean Corpuscular Hemoglobin Concent 32.2 g/dl Platelet Count 270 K/uL Mean Platelet Volume 10.1 fL Neutrophils (%) (Auto) 85.9 % Lymphocytes (%) (Auto) 7.2 % Monocytes (%) (Auto) 6.2 % Eosinophils (%) (Auto) 0.1 % Basophils (%) (Auto) 0.1 % Neutrophils # (Auto) 17.04 K/uL Lymphocytes # (Auto) 1.42 K/uL Monocytes # (Auto) 1.22 K/uL Eosinophils # (Auto) 0.01 K/uL Basophils # (Auto) 0.01 K/uL RDW Standard Deviation 43.7 fL RDW Coefficient of Variation 17.0 % Immature Granulocyte % (Auto) 0.5 % Immature Granulocyte # (Auto) 0.10 K/uL Nucleated RBC Absolute Count (auto) 0.02 K/uL Nucleated Red Blood Cells % 0.1 % Sodium Level 137 mmol/L Potassium Level 4.3 mmol/L Chloride Level 108 mmol/L Carbon Dioxide Level 23 mmol/L Anion Gap 6.0 mmol/L Blood Urea Nitrogen 20 mg/dl Creatinine 0.72 mg/dl Est Creatinine Clear Calc Drug Dose 141.0 ml/min Estimated GFR () 136.8 Estimated GFR (Non- 118.0 BUN/Creatinine Ratio 28.3 Random Glucose 124 mg/dl Estimated Average Glucose 114 mg/dl Hemoglobin A1c 5.6 % Calcium Level 9.1 mg/dl Iron Level 18 mcg/dl Total Iron Binding Capacity 465 mcg/dl Ferritin 10.3 ng/ml
[2017-02-25] MEDS ORDERED: SUMATRIPTAN SUCCINATE 25 MG TAB PO PRN (11:00)
[2017-02-25] MEDS ORDERED: NURSING VERBAL MED ORDER ONE (11:00)
--- NOTE | 2017-02-25 12:00 | NUR ---
A: Assessment complete and documented. VS WNL. C/O continued DELGADO. Denies increased sob. SR per tele. Lungs dim with scattered exp wheezes. No s/s of acute distress noted. Call waite within reach. Will continue to monitor. See emr.
--- NOTE | 2017-02-25 14:55 | NUR ---
assistant city attorney [facility]: I arrange a follow up appt and enter the details on to the DC instructions - "Please, follow up at [facility] Pulmonology Office on TuesdayMarch 04 at 9:00 am (arrive 8:40 am) with Savita Wallace PA-C. *This office is located in [address] of [facility] building next to this hospital. The address is [address] [place] [address] in [place]. Please, call the office if you need to change or cancel this appointment. The office phone number is [phone]."
[2017-02-25] MEDS ORDERED: PROMETHAZINE HCL INJ 25 MG in SODIUM CHLORIDE 0.9% 50ML 50 ML IV ONE (15:30)
[2017-02-25] MEDS ORDERED: SUMATRIPTAN SUCCINATE 6 MG/0.5 ML VIAL SQ ONE (15:30)
[2017-02-25] MEDS ORDERED: LEVOFLOXACIN 750 MG TAB PO ONE (16:00)
--- NOTE | 2017-02-25 16:00 | NUR ---
A: Assessment complete and documented. VS WNL. Denies increased pain and sob. SR per tele. Lungs dim with wheezes. No s/s of acute distress noted. Call waite within reach. Will continue to monitor. See emr.
[2017-02-25] MEDS: FERROUS SULFATE 325 MG TAB PO SCH (16:22)
--- NOTE | 2017-02-25 16:53 | NUR ---
RD attempted to provide diet education as per request of Dr. Maurer, however pt was getting an IV line placed at time of visit ~ 1645. Written materials provided to RN to give to pt along with RD contact information for further counseling. The handout "Iron Rich Nutrition Therapy" was provided d/t Fe++ defic. anemia AEB low H/H, low MCV, low Fe++ & elevated TIBC (Feosol now ordered per provider). Pt's glucose was elevated though on steroids (her A1c was 5.6%, normal). Otherwise, her BMI is 43.8 c/w obese class III. She would benefit from Outpatient MNT for wt loss to decrease risk of developing T2DM. Consider re-checking A1c in 6 mos (when pt is not acutely ill & is no longer on steroids). Level of care I.
--- NOTE | 2017-02-25 20:00 | NUR ---
A. Patient assessed, resting in bed with friend at bedside. She is AAOx4, pleasant and cooperative. She is denying any pain or SOB currently. Continuous SPO2 on, O2 saturations 90% on 2L, increased to 3L. She was encouraged to continue using incentive spirometer. She reports an occasional moist cough. NSR with HR in 80s. Tolerating diet. Eating [employer] on arrival to room, will await checking night time blood sugar. Patient on monthly mensus, pads given. Voiding in BSC and toilet. She was encouraged to increase ambulation and sitting up in chair. IV intact and patent. She was reminded on her fall risk and calling if needing anything.
[2017-02-25] MEDS: MONTELUKAST SOD 10 MG TAB PO SCH (20:48)
[2017-02-25] MEDS: ENOXAPARIN 40 MG/0.4 ML SYR SC SCH (20:49)
--- NOTE | 2017-02-25 21:45 | NUR ---
Spoke to Bhanu in lab, he confirmed that there is a pending RSV on the patient. It was send out lab and he is unable to tell me the length of time it takes to get result. Unable to do quick RSV panel due to patient >18 years old.
[2017-02-26] VITALS (10 sets, daily range): BP systolic 108–138; BP diastolic 72–85; PULSE 68–87; TEMP 36.6–37; O2SAT 92–95
--- NOTE | 2017-02-26 | NUR ---
A. Patient reassessed, resting in bed. No changes at this time. NSR with HR in 80s. She is denying any needs or complaints. Friends at bedside. Ambulating on own. IV intact. Voiding in toilet. Denies any SOB. Using call waite appropriately.
[2017-02-26] MEDS: LEVALBUTEROL 0.63MG/3 ML NEB INH SCH ×4 (02:05→19:20)
[2017-02-26] MEDS: METHYLPREDNISOLONE IV 40 MG in SYRINGE 0 ML IV SCH (06:10)
[2017-02-26 07:01] LABS: HEMATOCRIT 35.1 % (37-47); HEMOGLOBIN 11.1 g/dL (12.0-16.0); MEAN CELL VOLUME 69.8 fL (80-100); MEAN CORPUSCULAR HEMOGLOBIN 22.1 pg (25-34); MEAN CORPUSCULAR HGB CONC 31.6 g/dl (32-36); MEAN PLATELET VOLUME 9.6 fL (7.4-10.4); PLATELET COUNT 261 K/uL (130-400); RED CELL DISTRIBUTION WIDTH CV 16.9 % (11.5-14.5); RED CELL DISTRIBUTION WIDTH SD 43.1 fL (36.4-46.3); WHITE BLOOD COUNT 15.84 K/uL (4.8-10.8)
[2017-02-26 07:25] LABS: CALCIUM 8.9 mg/dl (8.5-10.1); CREATININE 0.66 mg/dl (0.60-1.20)
[2017-02-26] MEDS: FERROUS SULFATE 325 MG TAB PO SCH ×2 (07:56→16:42)
[2017-02-26] MEDS: CETIRIZINE HCL 10 MG TAB PO SCH (07:57)
--- NOTE | 2017-02-26 08:00 | NUR ---
A: Nursing assessment complete and documented in emr. A&O. VS WNL. Denies pain. C/O WITT, although states this is improved. SR per tele. Lungs dim on 3l nc. Independent in activity. No complaints or s/s of acute distress noted. Call waite within reach and pt instructed to ring for assistance. Will continue to monitor. See emr for full assessment data.
--- NOTE | 2017-02-26 09:44 | NUR ---
A: Pt walked one lap of MICU on room air. SpO2 upon finishing was ~79%. Back in room pt SpO2 increased on room air to 88%. During walking pt c/o increased coughing and mild chest pain. Pt placed back on 2l nc with rise in SpO2 to above 92% with resolution on chest pain. Will monitor.
--- NOTE | 2017-02-26 12:00 | NUR ---
A: Assessment complete and documented. VS WNL on 2l nc. SR per tele. Lungs dim. Still desating without activity. Call waite within reach. Will continue to monitor. See emr.
[2017-02-26] MEDS: LEVOFLOXACIN 750 MG TAB PO SCH (12:18)
--- NOTE | 2017-02-26 12:53 | Pulmonology Progress Note ---
Pulmonary Progress Note Date of Service Feb 26, 2017. Attending Dr. Boykin Subjective Patient seen and examined this morning. Sepsis is she's feeling better from a respiratory standpoint. She denies any shortness of breath at rest. She states that her cough is decreased and she has minimal wheezing. She is able to ambulate to the bathroom without assistance. She also notes that her headache has improved significantly. Objective VS reviewed. MAXIMUM TEMPERATURE 37, blood pressure 120/72 to 130/85, pulse 68 -87, respiratory rate 16-20, pulse oximetry 93-94% on 2-3 L nasal cannula. Gen: AAOx3, NAD, resting comfortably. CVS: S1, S2, RRR Lungs: Good air entry bilaterally, sporadic wheezes Abd: soft/NT/ND/BS+, obese Ext: no edema bilaterally, no cyanosis, no clubbing Labs reviewed. Imaging reviewed. Medications reviewed. Assessment & Plan Moderate persistent asthma with exacerbation Acute hypoxic respiratory failure--improving Allergic rhinitis Bibasilar opacities Morbid obesity. Ms. Cadet appears to be slowing from a respiratory standpoint. She has now transitioned off of high flow nasal cannula to regular nasal cannula. She performed a walk around the hallways with nurse per my request this morning. However she desaturated into 70s with complaints of chest pain and dyspnea. This is quite concerning as her asthma symptoms and bronchospasm appears to be improving. - Recommend titrating O2 supplementation as tolerated and to keep SaO2 >92%. -I recommended we switch over to prednisone 50 mg in the morning. She should have a 5 day taper. -D/C Qvar while on systemic steroids. Once able to taper to PO Prednisone, recommend addition of combo ICS/LABA such as Advair 250, Breo 200, or Symbicort 160 (whatever is covered best by insurance is fine). She is poorly controlled on current regimen of Qvar alone with rescue inhaler/nebulizer. -Continue with Xopenex. -Continue with Montelukast. Seems likely that patient has continued exposure to allergens which is worsening her asthma. Patient should continue this medication along with Xyzal or another H1-casey like loratadine or cetirizine. Continue with Montelukast at night and H1-casey in the AM. -Continue Levaquin to completed a 5 day course pending RSV. If RSV is positive, can likely D/C Levaquin. -Continue with daily peak flow. -Encourage out of bed to chair -Weight loss, diet and exercise encouraged upon hospital discharge. She may have component of obesity hypoventilation syndrome contributing her hypoxia. -She should have polysomnography to rule out obstructive sleep apnea. -I have ordered an echocardiogram to rule out pulmonary hypertension and possible shunt for other causes of hypoxemia. We will continue to follow. Data Medications: Current Inpatient Medications Medications (Trade) Dose Ordered Sig/Kemal Route Start Time Stop Time Status Last Admin Dose Admin Ioversol (Optiray 320) 100 ml UD PRN IV 02/23/17 14:00 02/27/17 13:59 Enoxaparin Sodium (Lovenox Inj) 40 mg Q24H SC 02/23/17 21:00 03/25/17 20:59 02/25/17 20:49 40 MG Acetaminophen (Tylenol Tab) 650 mg Q4H PRN PO 02/23/17 15:45 03/25/17 15:44 Al Hydrox/Mg Hydrox/Simethicone (Maalox Max Susp) 15 ml Q4H PRN PO 02/23/17 15:45 03/25/17 15:44 Magnesium Hydroxide (Milk Of Magnesia Susp) 30 ml Q12H PRN PO 02/23/17 15:45 03/25/17 15:44 Ondansetron HCl (Zofran Inj) 4 mg Q6H PRN IV 02/23/17 15:45 03/25/17 15:44 Morphine Sulfate (MoRPHine SULFATE INJ) 2 mg Q30M PRN IV 02/23/17 15:45 03/09/17 15:44 Polyethylene (Miralax Powder Packet) 17 gm DAILY PRN PO 02/23/17 15:45 03/25/17 15:44 Albuterol (Ventolin Hfa Inhaler) 2 puffs QID PRN INH 02/23/17 15:45 03/25/17 15:44 Cetirizine HCl (zyrTEC TAB) 5 mg DAILY PO 02/24/17 09:00 03/26/17 08:59 02/26/17 07:57 5 MG Ketorolac Tromethamine (Toradol Inj) 30 mg Q6H PRN IV 02/23/17 17:30 02/28/17 17:29 02/24/17 20:36 30 MG Montelukast Sodium (Singulair Tab) 10 mg HS PO 02/23/17 21:00 03/25/17 20:59 02/25/17 20:48 10 MG Methylprednisolone Sodium Succinate 40 mg/Syringe 0.64 ml @ 1.5 mls/min Q8 IV 02/24/17 14:00 03/25/17 19:59 02/26/17 06:10 1.5 MLS/MIN Levalbuterol (Xopenex 0.63 Mg/ 3 Ml Neb) 0.63 mg Q6R INH 02/24/17 15:00 03/26/17 14:59 02/26/17 06:54 0.63 MG Sumatriptan Succinate (Imitrex Tab) 25 mg BID PRN PO 02/25/17 11:00 02/25/17 11:08 25 MG Ferrous Sulfate (Feosol Tab) 325 mg BIDM PO 02/25/17 16:45 03/27/17 16:44 02/26/17 07:56 325 MG Levofloxacin (Levaquin Tab) 750 mg DAILY@11 PO 02/26/17 11:00 03/03/17 10:59 Vital Signs: Date Time Temp Pulse Resp B/P (MAP) Pulse Ox O2 Delivery O2 Flow Rate FiO2 02/26/17 08:00 Nasal Cannula 3.0 02/26/17 07:48 36.7 68 20 138/85 (102) 94 Room Air 02/26/17 06:54 79 16 93 Nasal Cannula 3.0 02/26/17 04:00 Nasal Cannula 3.0 02/26/17 03:58 36.6 87 17 120/72 (88) 93 Nasal Cannula 3.0 02/26/17 02:05 82 16 94 Nasal Cannula 3.0 02/25/17 23:59 Nasal Cannula 3.0 02/25/17 23:57 36.8 77 16 114/75 (88) 96 Nasal Cannula 3.0 02/25/17 20:00 Nasal Cannula 3.0 02/25/17 19:38 36.9 96 18 103/70 (81) 91 Nasal Cannula 3.0 02/25/17 19:20 77 18 91 Nasal Cannula 3.0 02/25/17 16:00 Nasal Cannula 3.0 02/25/17 15:18 36.8 89 20 118/79 (92) 92 Nasal Cannula 3.0 02/25/17 14:21 88 18 96 Nasal Cannula 3.0 02/25/17 12:00 High Flow Oxygen 30 Nasal Cannula Laboratory Results: Last 24 Hours Test 02/25/17 21:33 02/26/17 06:34 02/26/17 06:50 Bedside Glucose 164 mg/dl 134 mg/dl White Blood Count 15.84 K/uL Red Blood Count 5.03 M/uL Hemoglobin 11.1 g/dL Hematocrit 35.1 % Mean Corpuscular Volume 69.8 fL Mean Corpuscular Hemoglobin 22.1 pg Mean Corpuscular Hemoglobin Concent 31.6 g/dl RDW Standard Deviation 43.1 fL RDW Coefficient of Variation 16.9 % Platelet Count 261 K/uL Mean Platelet Volume 9.6 fL Sodium Level 137 mmol/L Potassium Level 4.0 mmol/L Chloride Level 106 mmol/L Carbon Dioxide Level 24 mmol/L Anion Gap 7.0 mmol/L Blood Urea Nitrogen 15 mg/dl Creatinine 0.66 mg/dl Est Creatinine Clear Calc Drug Dose 154.5 ml/min Estimated GFR () 144.3 Estimated GFR (Non- 124.5 BUN/Creatinine Ratio 22.8 Random Glucose 117 mg/dl Calcium Level 8.9 mg/dl 25-Hydroxy Vitamin D Total 6.9 ng/ml Thyroid Stimulating Hormone (TSH) 2.680 uIu/ml
[2017-02-26] MEDS ORDERED: ERGOCALCIFEROL 50,000 INTER.UNIT CAP PO STA (17:53)
--- NOTE | 2017-02-26 18:26 | Family Medicine Progress Note ---
Progress Note Date of Service Feb 26, 2017. Subjective Pt evaluation today including: conversation w/ patient, physical exam, chart review, lab review Pain: denies any discomfort this AM PO Intake: tolerating Voiding: no voiding problems This AM Ms. Cadet reports improved sob and coughing. Cough is still productive but without bloody streaks. Denies any DELGADO. Remains on 2.5 L of NC. Otherwise asymptomatic. Constitutional: No fever, No chills Respiratory: + cough, + sputum, + shortness of breath Cardiovascular: No chest pain Abdomen: No pain, No nausea, No vomiting Female : No dysuria Medications Current Inpatient Medications Medications (Trade) Dose Ordered Sig/Kemal Route Start Time Stop Time Status Last Admin Dose Admin Ioversol (Optiray 320) 100 ml UD PRN IV 02/23/17 14:00 02/27/17 13:59 Enoxaparin Sodium (Lovenox Inj) 40 mg Q24H SC 02/23/17 21:00 03/25/17 20:59 02/25/17 20:49 40 MG Acetaminophen (Tylenol Tab) 650 mg Q4H PRN PO 02/23/17 15:45 03/25/17 15:44 Al Hydrox/Mg Hydrox/Simethicone (Maalox Max Susp) 15 ml Q4H PRN PO 02/23/17 15:45 03/25/17 15:44 Magnesium Hydroxide (Milk Of Magnesia Susp) 30 ml Q12H PRN PO 02/23/17 15:45 03/25/17 15:44 Ondansetron HCl (Zofran Inj) 4 mg Q6H PRN IV 02/23/17 15:45 03/25/17 15:44 Morphine Sulfate (MoRPHine SULFATE INJ) 2 mg Q30M PRN IV 02/23/17 15:45 03/09/17 15:44 Polyethylene (Miralax Powder Packet) 17 gm DAILY PRN PO 02/23/17 15:45 03/25/17 15:44 Albuterol (Ventolin Hfa Inhaler) 2 puffs QID PRN INH 02/23/17 15:45 03/25/17 15:44 Cetirizine HCl (zyrTEC TAB) 5 mg DAILY PO 02/24/17 09:00 03/26/17 08:59 02/26/17 07:57 5 MG Ketorolac Tromethamine (Toradol Inj) 30 mg Q6H PRN IV 02/23/17 17:30 02/28/17 17:29 02/24/17 20:36 30 MG Montelukast Sodium (Singulair Tab) 10 mg HS PO 02/23/17 21:00 03/25/17 20:59 02/25/17 20:48 10 MG Levalbuterol (Xopenex 0.63 Mg/ 3 Ml Neb) 0.63 mg Q6R INH 02/24/17 15:00 03/26/17 14:59 02/26/17 14:15 0.63 MG Sumatriptan Succinate (Imitrex Tab) 25 mg BID PRN PO 02/25/17 11:00 02/25/17 11:08 25 MG Ferrous Sulfate (Feosol Tab) 325 mg BIDM PO 02/25/17 16:45 03/27/17 16:44 02/26/17 16:42 325 MG Levofloxacin (Levaquin Tab) 750 mg DAILY@11 PO 02/26/17 11:00 03/03/17 10:59 02/26/17 12:18 750 MG Prednisone (PredniSONE TAB) 50 mg DAILY PO 02/27/17 09:00 03/29/17 08:59 Objective Vital Signs Date Time Temp Pulse Resp B/P (MAP) Pulse Ox O2 Delivery O2 Flow Rate FiO2 02/26/17 16:00 Nasal Cannula 3.0 02/26/17 15:25 36.6 77 16 113/72 (86) 93 Nasal Cannula 2.0 02/26/17 14:15 74 16 95 Nasal Cannula 3.0 02/26/17 12:00 Nasal Cannula 3.0 02/26/17 10:58 37.0 78 20 130/79 (96) 93 Nasal Cannula 2.0 02/26/17 08:00 Nasal Cannula 3.0 02/26/17 07:48 36.7 68 20 138/85 (102) 94 Room Air 02/26/17 06:54 79 16 93 Nasal Cannula 3.0 02/26/17 04:00 Nasal Cannula 3.0 02/26/17 03:58 36.6 87 17 120/72 (88) 93 Nasal Cannula 3.0 02/26/17 02:05 82 16 94 Nasal Cannula 3.0 02/25/17 23:59 Nasal Cannula 3.0 02/25/17 23:57 36.8 77 16 114/75 (88) 96 Nasal Cannula 3.0 02/25/17 20:00 Nasal Cannula 3.0 02/25/17 19:38 36.9 96 18 103/70 (81) 91 Nasal Cannula 3.0 02/25/17 19:20 77 18 91 Nasal Cannula 3.0 Physical Exam General Appearance: no apparent distress Eyes: normal inspection Respiratory/Chest: + decreased breath sounds, + wheezing (end inspiratory wheezing) Cardiovascular: regular rate, rhythm, no edema, no murmur Abdomen: normal bowel sounds, non tender, soft Extremities: non-tender, no pedal edema Neurologic/Psychiatric: alert, oriented x 3 Laboratory Results 02/26/17 06:50 02/26/17 06:50 Test 02/26/17 06:50 02/26/17 16:26 Red Blood Count 5.03 M/uL (4.2-5.4) Mean Corpuscular Volume 69.8 fL (80-100) Mean Corpuscular Hemoglobin 22.1 pg (25-34) Mean Corpuscular Hemoglobin Concent 31.6 g/dl (32-36) RDW Standard Deviation 43.1 fL (36.4-46.3) RDW Coefficient of Variation 16.9 % (11.5-14.5) Mean Platelet Volume 9.6 fL (7.4-10.4) Anion Gap 7.0 mmol/L (3-11) Est Creatinine Clear Calc Drug Dose 154.5 ml/min Estimated GFR () 144.3 Estimated GFR (Non- 124.5 BUN/Creatinine Ratio 22.8 (10-20) Calcium Level 8.9 mg/dl (8.5-10.1) 25-Hydroxy Vitamin D Total 6.9 ng/ml (30-100) Thyroid Stimulating Hormone (TSH) 2.680 uIu/ml (0.300-4.500) Bedside Glucose 114 mg/dl (70-90) Assessment and Plan Ms. Cadet is a 21 yoF with multiple recent asthma exacerbations who presented with persistent sob and hypoxia secondary to asthma exacerbation in the setting of baseline severe persistent asthma. Also diagnosed with multifocal pneumonia and anemia. Acute Hypoxic Respiratory Failure secondary to Asthma Exacerbation - improving - pulmonary consulted. Recommendations: - Switched to Prednisone 50mg daily from Solumedrol 40mg IV q8h - Continue oxygen, maintain sats >92% - Continue Xopenox nebs q6h - discharge with combo ICS/LABA (change qvar to symbicort 160 or advair 250 @ dc) - TSH nl at 2.680 - polysomnography as outpatient - Vitamin D 6.9 - started on ergocalcoferol 50,000 units 2x/week (order next dosage due on 03/02) - anti-inflammatory and correlated with poor asthma Allergic rhinitis - Continue cetirizine qam - Continue Singulair 10mg qPM Multifocal pneumonia - continue levaquin 750mg PO - day 4/5 - D/c if RSV positive - negative for influenza, RSV pending Dysfunctional Uterine Bleeding - ?possibly PCOS given metabolic syndrome, obesity & irregular menstrual cycle - HbA1c = 5.6, 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 VTE: Lovenox Resident Physician Supervision Note: I was present with PGY1 Dr. Matt Madsen during the history and exam. I discussed the case with the resident and agree with the findings and plan as documented in the note. Any exceptions or clarifications are listed here: none. Pt asks "can I go home tomorrow?" feels better - cough is now productive, chest tightness improved however, desatted to 70s with walking today with O2 off c/o myalgias/restless legs type symptoms VSS gen - no distress heart - RRR, s1, s2, no murmur lungs - still with fair air movement and decreased BS but less wheeze ext - no edema, no asymmetry of legs, nontender A/P: 1. acute hypoxic resp failure 2nd to status asthmaticus - continues to improve but still w/ O2 requirement; defer steroid management to pulmonary; agree w/ echo to r/o other causes of hypoxia 2. severe persistent asthma at baseline - change qvar to advair or symbicort at d/c; added singulair; appreciate pulmonary consult 3. severe asthma exacerbation - as above 4. hyperglycemia, acanthosis - a1c nearly in pre-DM range; FSBS have been stable; can d/c the fingersticks 5. microcytic anemia - due to severe Fe Def anemia - likely from DUB; Fe supplement BID; likely contributing to restless legs 6. b/l lower lobe pneumonia - levaquin; flu neg; awaiting RSV; can change to PO levaquin and complete 10 days in total 7. vit D def - severe - ergocalciferol x 8 weeks continues to progress albeit slowly wean O2 as tolerated leave on tele 1 more day Documented By: Jorje Maurer MD Resident Involvement: Resident Care Provided Care Provided: Adult Hospital Medicine
--- NOTE | 2017-02-26 20:00 | NUR ---
A:Nursing assessment completed. Pt awake and watching television. Respirations easy and unlabored. Nsr displaying on monitor. Denies needs.
[2017-02-26] MEDS: MONTELUKAST SOD 10 MG TAB PO SCH (20:46)
[2017-02-26] MEDS: ENOXAPARIN 40 MG/0.4 ML SYR SC SCH (20:46)
[2017-02-27] VITALS (12 sets, daily range): BP systolic 100–115; BP diastolic 64–78; PULSE 70–94; TEMP 36.4–37.1; O2SAT 92–97
--- NOTE | 2017-02-27 | NUR ---
A:Resting in bed with eyes closed, no distress. Denies needs. Remains on nasal cannula.
[2017-02-27] MEDS: LEVALBUTEROL 0.63MG/3 ML NEB INH SCH ×4 (01:58→18:49)
--- NOTE | 2017-02-27 04:00 | NUR ---
A:Resting in bed with eyes closed, no distress. Remains on 3l nasal cannula. Nsr displaying on monitor.
[2017-02-27 06:48] LABS: HEMOGLOBIN 11.3 g/dL (12.0-16.0); MEAN CELL VOLUME 69.9 fL (80-100); MEAN CORPUSCULAR HEMOGLOBIN 21.9 pg (25-34); MEAN CORPUSCULAR HGB CONC 31.4 g/dl (32-36); MEAN PLATELET VOLUME 9.8 fL (7.4-10.4); PLATELET COUNT 280 K/uL (130-400); RED CELL DISTRIBUTION WIDTH CV 16.5 % (11.5-14.5); RED CELL DISTRIBUTION WIDTH SD 42.1 fL (36.4-46.3); WHITE BLOOD COUNT 15.01 K/uL (4.8-10.8)
[2017-02-27 07:20] LABS: CALCIUM 8.8 mg/dl (8.5-10.1); CREATININE 0.83 mg/dl (0.60-1.20); POTASSIUM 3.1 mmol/L (3.5-5.1)
[2017-02-27] MEDS ORDERED: POTASSIUM CHLORIDE 20 MEQ/15 ML UDC PO ONE (08:00)
--- NOTE | 2017-02-27 08:00 | NUR ---
A: Nursing assessment complete and documented in emr. A&O. VS WNL. Denies pain and increased sob. SR per tele. Lungs dim on 3l nc. Independent in activity. No complaints or s/s of acute distress noted. Call waite within reach and pt instructed to ring for assistance. Will continue to monitor. See emr for full assessment data.
[2017-02-27] MEDS: CETIRIZINE HCL 10 MG TAB PO SCH (09:02)
[2017-02-27] MEDS: FERROUS SULFATE 325 MG TAB PO SCH ×2 (09:03→16:06)
--- NOTE | 2017-02-27 09:45 | ECHOCARDIOGRAM REPORT ---
*NOTICE TO RECEIVING [employer] This information is strictly Confidential and protected under [place] law. [place] law prohibits you from making any further disclosure of this information unless further disclosure is expressly permitted by the written consent of the person to whom it pertains or is authorized by law. A general authorization for the release of medical or other information is not sufficient for this purpose. Hospital accepts no responsibility if the information is made available to any other person, INCLUDING THE PATIENT. Interpretation Summary * Name: YANIRA MARTINEZ Study Date: 02/27/2017 06:54 AM BP: 100/69 mmHg * Patient Location: C.2T\S\E217\S\1 HR: 73 * : 1995 (M/d/yyyy) Gender: Female Height: 62 in * Age: 21 yrs Ethnicity: [place] Weight: 241 lb * Ordering Physician: Patricia Boykin * Referring Physician: Self, Referred * Performed By: Benja Hayes RDCS * * Reason For Study: Pulmonary hypertension * BSA: 2.1 m2 * -- Conclusions -- * The left ventricle is normal in size. * There is normal left ventricular wall thickness. * Left ventricular systolic function is normal. * Ejection Fraction = 55-60%. * The left ventricular wall motion is normal. * The right ventricle is normal in size and function. * The right ventricular systolic function is normal as assessed by tricuspid annular plane systolic excursion (TAPSE) (normal >1.5 cm). * Not enough TR to estimate PA pressures. * Trace Pericardial effusion. * Normal Diastolic function. Procedure Details * A complete two-dimensional transthoracic echocardiogram was performed (2D, M-mode, Doppler and color flow Doppler). * The study was technically adequate. Left Ventricle * The left ventricle is normal in size. * There is normal left ventricular wall thickness. * Ejection Fraction = 55-60%. * Left ventricular systolic function is normal. * The left ventricular wall motion is normal. Right Ventricle * The right ventricle is normal in size and function. * The right ventricular systolic function is normal as assessed by tricuspid annular plane systolic excursion (TAPSE) (normal >1.5 cm). Atria * The left atrial size is normal. * Right atrial size is normal. Mitral Valve * The mitral valve is grossly normal. * There is trace mitral regurgitation. Tricuspid Valve * The tricuspid valve is not well visualized, but is grossly normal. * There is trace tricuspid regurgitation. * Not enough TR to estimate PA pressures. Aortic Valve * The aortic valve is trileaflet. Pulmonic Valve * The pulmonic valve is not well seen, but is grossly normal. * Mild pulmonic valvular regurgitation. Great Vessels * The aortic root is normal size. Pericardium/Pleural * Trace Pericardial effusion. Great Vessels * Normal size IVC with abnormal collapse. Left Ventricular Diastolic Function * Normal Diastolic function. MMode 2D Measurements and Calculations IVSd 1.0 cm IVSs 1.5 cm LVIDd 4.2 cm LVIDs 2.7 cm LVPWd 1.0 cm LVPWs 1.7 cm IVS/LVPW 0.99 FS 35.2 % EDV(Teich) 78.5 ml ESV(Teich) 27.5 ml EF(Teich) 65.0 % EDV(cubed) 74.0 ml ESV(cubed) 20.1 ml EF(cubed) 72.8 % % IVS thick 46.1 % % LVPW thick 60.4 % LV mass(C)d 146.2 grams LV mass(C)dI 70.7 grams/m\S\2 LV mass(C)s 157.1 grams LV mass(C)sI 75.9 grams/m\S\2 SV(Teich) 51.0 ml SI(Teich) 24.7 ml/m\S\2 SV(cubed) 53.9 ml SI(cubed) 26.0 ml/m\S\2 Ao root diam 2.6 cm Ao root area 5.3 cm\S\2 ACS 1.6 cm LA dimension 3.0 cm asc Aorta Diam 2.9 cm LA/Ao 1.2 LVOT diam 1.9 cm LVOT area 2.9 cm\S\2 LVAd ap4 27.3 cm\S\2 LVLd ap4 8.2 cm EDV(MOD-sp4) 76.0 ml EDV(sp4-el) 77.3 ml LVAs ap4 17.0 cm\S\2 LVLs ap4 7.1 cm ESV(MOD-sp4) 33.9 ml ESV(sp4-el) 34.4 ml EF(MOD-sp4) 55.3 % EF(sp4-el) 55.5 % LVAd ap2 28.0 cm\S\2 LVLd ap2 8.5 cm EDV(MOD-sp2) 78.8 ml EDV(sp2-el) 78.1 ml LVAs ap2 16.5 cm\S\2 LVLs ap2 7.1 cm ESV(MOD-sp2) 33.9 ml ESV(sp2-el) 32.5 ml EF(MOD-sp2) 57.0 % EF(sp2-el) 58.4 % LVLd %diff 2.5 % EDV(MOD-bp) 83.0 ml LVLs %diff -3.24 % ESV(MOD-bp) 33.9 ml EF(MOD-bp) 59.2 % SV(MOD-sp4) 42.0 ml SI(MOD-sp4) 20.3 ml/m\S\2 SV(MOD-sp2) 44.9 ml SI(MOD-sp2) 21.7 ml/m\S\2 SV(MOD-bp) 49.2 ml SI(MOD-bp) 23.8 ml/m\S\2 SV(sp4-el) 42.9 ml SI(sp4-el) 20.7 ml/m\S\2 SV(sp2-el) 45.6 ml SI(sp2-el) 22.0 ml/m\S\2 Doppler Measurements and Calculations MV E max jaz 105.4 cm/sec MV A max jaz 69.4 cm/sec MV E/A 1.5 MV dec time 0.20 sec Ao V2 max 148.4 cm/sec Ao max PG 8.8 mmHg Ao max PG (full) 4.3 mmHg SERVANDO(V,A) 2.1 cm\S\2 SERVANDO(V,D) 2.1 cm\S\2 LV V1 max PG 4.5 mmHg LV V1 max 106.3 cm/sec PA V2 max 101.8 cm/sec PA max PG 4.1 mmHg
--- NOTE | 2017-02-27 10:09 | Pulmonology Progress Note ---
Pulmonary Progress Note Date of Service Feb 27, 2017. Attending Dr. Boykin Subjective Patient seen and examined. She would like to be discharged today. Feeling much better. She denies any shortness of breath or chest pain. Objective VS reviewed. MAXIMUM TEMPERATURE 36.5, blood pressure 100/69-103/64, pulse 68- 87, respiratory rate 16-20, pulse oximetry 93-94% on 2-3 L nasal cannula. Gen: AAOx3, NAD, resting comfortably. CVS: S1, S2, RRR Lungs: Good air entry bilaterally, sporadic wheezes Abd: soft/NT/ND/BS+, obese Ext: no edema bilaterally, no cyanosis, no clubbing Labs reviewed. WBC 15 today. Hgb stable 11.3 Imaging reviewed. TTE 02/27/2017 * -- Conclusions -- * The left ventricle is normal in size. * There is normal left ventricular wall thickness. * Left ventricular systolic function is normal. * Ejection Fraction = 55-60%. * The left ventricular wall motion is normal. * The right ventricle is normal in size and function. * The right ventricular systolic function is normal as assessed by tricuspid annular plane systolic excursion (TAPSE) (normal >1.5 cm). * Not enough TR to estimate PA pressures. * Trace Pericardial effusion. * Normal Diastolic function. Medications reviewed. Assessment & Plan Moderate persistent asthma with exacerbation Acute hypoxic respiratory failure--improving Allergic rhinitis Bibasilar opacities Morbid obesity. Ms. Cadet showing improvements from a pulmonary stand point. - Recommend titrating O2 supplementation as tolerated and to keep SaO2 >92%. -I recommended we switch over to prednisone 50 mg in the morning. Decrease prednisone by 10 mg over the next 5 days so that she can have a 5 day taper. - Recommend addition of combo ICS/LABA such as Advair 250, Breo 200, or Symbicort 160 (whatever is covered best by insurance is fine). She is poorly controlled on current regimen of Qvar alone with rescue inhaler/nebulizer. -Continue with Xopenex. However she should be discharged home on albuterol MDI to take q4-6 h prn Continue with Montelukast at night and H1-casey in the AM. -Continue Levaquin to completed a 5 day course pending RSV. If RSV is positive, can likely D/C Levaquin. -Continue with daily peak flow. -Encourage out of bed to chair -Weight loss, diet and exercise encouraged upon hospital discharge. She may have component of obesity hypoventilation syndrome contributing her hypoxia. -She should have polysomnography to rule out obstructive sleep apnea. -TTE shows no signs of diastolic dysfunction or pulmonary hypertension. Likely can be discharged today with pulmonary follow in 1-2 weeks. Obtain 2 step prior to discharge. I will sign off of her case today. Data Medications: Current Inpatient Medications Medications (Trade) Dose Ordered Sig/Kemal Route Start Time Stop Time Status Last Admin Dose Admin Ioversol (Optiray 320) 100 ml UD PRN IV 02/23/17 14:00 02/27/17 13:59 Enoxaparin Sodium (Lovenox Inj) 40 mg Q24H SC 02/23/17 21:00 03/25/17 20:59 02/26/17 20:46 40 MG Acetaminophen (Tylenol Tab) 650 mg Q4H PRN PO 02/23/17 15:45 03/25/17 15:44 Al Hydrox/Mg Hydrox/Simethicone (Maalox Max Susp) 15 ml Q4H PRN PO 02/23/17 15:45 03/25/17 15:44 Magnesium Hydroxide (Milk Of Magnesia Susp) 30 ml Q12H PRN PO 02/23/17 15:45 03/25/17 15:44 Ondansetron HCl (Zofran Inj) 4 mg Q6H PRN IV 02/23/17 15:45 03/25/17 15:44 Morphine Sulfate (MoRPHine SULFATE INJ) 2 mg Q30M PRN IV 02/23/17 15:45 03/09/17 15:44 Polyethylene (Miralax Powder Packet) 17 gm DAILY PRN PO 02/23/17 15:45 03/25/17 15:44 Albuterol (Ventolin Hfa Inhaler) 2 puffs QID PRN INH 02/23/17 15:45 03/25/17 15:44 Cetirizine HCl (zyrTEC TAB) 5 mg DAILY PO 02/24/17 09:00 03/26/17 08:59 02/27/17 09:02 5 MG Ketorolac Tromethamine (Toradol Inj) 30 mg Q6H PRN IV 02/23/17 17:30 02/28/17 17:29 02/24/17 20:36 30 MG Montelukast Sodium (Singulair Tab) 10 mg HS PO 02/23/17 21:00 03/25/17 20:59 02/26/17 20:46 10 MG Levalbuterol (Xopenex 0.63 Mg/ 3 Ml Neb) 0.63 mg Q6R INH 02/24/17 15:00 03/26/17 14:59 02/27/17 06:44 0.63 MG Sumatriptan Succinate (Imitrex Tab) 25 mg BID PRN PO 02/25/17 11:00 02/25/17 11:08 25 MG Ferrous Sulfate (Feosol Tab) 325 mg BIDM PO 02/25/17 16:45 03/27/17 16:44 02/27/17 09:03 325 MG Levofloxacin (Levaquin Tab) 750 mg DAILY@11 PO 02/26/17 11:00 03/03/17 10:59 02/26/17 12:18 750 MG Prednisone (PredniSONE TAB) 50 mg DAILY PO 02/27/17 09:00 03/29/17 08:59 02/27/17 09:02 50 MG Vital Signs: Date Time Temp Pulse Resp B/P (MAP) Pulse Ox O2 Delivery O2 Flow Rate FiO2 02/27/17 07:37 36.5 78 20 103/64 (77) 95 Nasal Cannula 2.0 02/27/17 06:44 72 16 94 Nasal Cannula 2.0 02/27/17 04:00 Nasal Cannula 3.0 02/27/17 03:51 37.0 70 16 100/69 (79) 97 Nasal Cannula 3.0 02/27/17 02:00 78 16 94 Nasal Cannula 2.0 02/27/17 00:00 Nasal Cannula 3.0 02/26/17 23:37 36.8 76 17 120/73 (89) 93 Nasal Cannula 3.0 02/26/17 20:00 Nasal Cannula 2.0 02/26/17 19:35 36.8 79 18 108/72 (84) 93 Nasal Cannula 2.0 02/26/17 19:20 84 16 92 Nasal Cannula 2.0 02/26/17 16:00 Nasal Cannula 3.0 02/26/17 15:25 36.6 77 16 113/72 (86) 93 Nasal Cannula 2.0 02/26/17 14:15 74 16 95 Nasal Cannula 3.0 02/26/17 12:00 Nasal Cannula 3.0 02/26/17 10:58 37.0 78 20 130/79 (96) 93 Nasal Cannula 2.0 Laboratory Results: Last 24 Hours Test 02/26/17 10:58 02/26/17 16:26 02/27/17 06:14 02/27/17 06:32 Bedside Glucose 129 mg/dl 114 mg/dl 93 mg/dl White Blood Count 15.01 K/uL Red Blood Count 5.15 M/uL Hemoglobin 11.3 g/dL Hematocrit 36.0 % Mean Corpuscular Volume 69.9 fL Mean Corpuscular Hemoglobin 21.9 pg Mean Corpuscular Hemoglobin Concent 31.4 g/dl RDW Standard Deviation 42.1 fL RDW Coefficient of Variation 16.5 % Platelet Count 280 K/uL Mean Platelet Volume 9.8 fL Sodium Level 137 mmol/L Potassium Level 3.1 mmol/L Chloride Level 105 mmol/L Carbon Dioxide Level 25 mmol/L Anion Gap 7.0 mmol/L Blood Urea Nitrogen 17 mg/dl Creatinine 0.83 mg/dl Est Creatinine Clear Calc Drug Dose 122.0 ml/min Estimated GFR () 115.2 Estimated GFR (Non- 99.4 BUN/Creatinine Ratio 20.9 Random Glucose 92 mg/dl Calcium Level 8.8 mg/dl Magnesium Level 2.2 mg/dl
[2017-02-27] MEDS: LEVOFLOXACIN 750 MG TAB PO SCH (11:42)
--- NOTE | 2017-02-27 12:00 | NUR ---
A: Assessment complete and documented. VS WNL on 1l nc. SR per tele. Lungs dim. Call waite within reach. Will continue to monitor. See emr.
--- NOTE | 2017-02-27 13:15 | Family Medicine Progress Note ---
Progress Note Date of Service Feb 27, 2017. Subjective Pt evaluation today including: conversation w/ patient, physical exam, chart review, lab review Pain: mild chest discomfort with over exertion PO Intake: tolerating Voiding: no voiding problems This AM Ms. Cadet reports feeling better. Sob and cough have improved. She is less sob with exertion. Reported a mild chest discomfort with over exertion and over use of spirometer. Denies any hemoptysis and DELGADO. Otherwise asymptomatic. Constitutional: No fever, No chills Respiratory: + cough, + sputum Abdomen: No pain, No nausea, No vomiting, No diarrhea Female : No dysuria Medications Current Inpatient Medications Medications (Trade) Dose Ordered Sig/Kemal Route Start Time Stop Time Status Last Admin Dose Admin Ioversol (Optiray 320) 100 ml UD PRN IV 02/23/17 14:00 02/27/17 13:59 Enoxaparin Sodium (Lovenox Inj) 40 mg Q24H SC 02/23/17 21:00 03/25/17 20:59 02/26/17 20:46 40 MG Acetaminophen (Tylenol Tab) 650 mg Q4H PRN PO 02/23/17 15:45 03/25/17 15:44 Al Hydrox/Mg Hydrox/Simethicone (Maalox Max Susp) 15 ml Q4H PRN PO 02/23/17 15:45 03/25/17 15:44 Magnesium Hydroxide (Milk Of Magnesia Susp) 30 ml Q12H PRN PO 02/23/17 15:45 03/25/17 15:44 Ondansetron HCl (Zofran Inj) 4 mg Q6H PRN IV 02/23/17 15:45 03/25/17 15:44 Morphine Sulfate (MoRPHine SULFATE INJ) 2 mg Q30M PRN IV 02/23/17 15:45 03/09/17 15:44 Polyethylene (Miralax Powder Packet) 17 gm DAILY PRN PO 02/23/17 15:45 03/25/17 15:44 Albuterol (Ventolin Hfa Inhaler) 2 puffs QID PRN INH 02/23/17 15:45 03/25/17 15:44 Cetirizine HCl (zyrTEC TAB) 5 mg DAILY PO 02/24/17 09:00 03/26/17 08:59 02/27/17 09:02 5 MG Ketorolac Tromethamine (Toradol Inj) 30 mg Q6H PRN IV 02/23/17 17:30 02/28/17 17:29 02/24/17 20:36 30 MG Montelukast Sodium (Singulair Tab) 10 mg HS PO 02/23/17 21:00 03/25/17 20:59 02/26/17 20:46 10 MG Levalbuterol (Xopenex 0.63 Mg/ 3 Ml Neb) 0.63 mg Q6R INH 02/24/17 15:00 03/26/17 14:59 02/27/17 06:44 0.63 MG Sumatriptan Succinate (Imitrex Tab) 25 mg BID PRN PO 02/25/17 11:00 02/25/17 11:08 25 MG Ferrous Sulfate (Feosol Tab) 325 mg BIDM PO 02/25/17 16:45 03/27/17 16:44 02/27/17 09:03 325 MG Levofloxacin (Levaquin Tab) 750 mg DAILY@11 PO 02/26/17 11:00 03/03/17 10:59 02/27/17 11:42 750 MG Prednisone (PredniSONE TAB) 50 mg DAILY PO 02/27/17 09:00 03/29/17 08:59 02/27/17 09:02 50 MG Salmeterol Xinafoate/ Fluticasone (Advair Diskus 250/50 Inh) 1 puff BID INH 02/27/17 21:00 03/29/17 20:59 UNV Objective Physical Exam General Appearance: no apparent distress Eyes: normal inspection Respiratory/Chest: + decreased breath sounds (improved aeration since yesterday ), + wheezing (end-inspiratory improved since yesterday) Cardiovascular: regular rate, rhythm, no murmur Abdomen: normal bowel sounds, non tender, soft Extremities: non-tender, no pedal edema Laboratory Results 02/27/17 06:14 02/27/17 06:14 Test 02/27/17 06:14 02/27/17 06:32 Red Blood Count 5.15 M/uL (4.2-5.4) Mean Corpuscular Volume 69.9 fL (80-100) Mean Corpuscular Hemoglobin 21.9 pg (25-34) Mean Corpuscular Hemoglobin Concent 31.4 g/dl (32-36) RDW Standard Deviation 42.1 fL (36.4-46.3) RDW Coefficient of Variation 16.5 % (11.5-14.5) Mean Platelet Volume 9.8 fL (7.4-10.4) Anion Gap 7.0 mmol/L (3-11) Est Creatinine Clear Calc Drug Dose 122.0 ml/min Estimated GFR () 115.2 Estimated GFR (Non- 99.4 BUN/Creatinine Ratio 20.9 (10-20) Calcium Level 8.8 mg/dl (8.5-10.1) Magnesium Level 2.2 mg/dl (1.8-2.4) Bedside Glucose 93 mg/dl (70-90) Assessment and Plan Ms. Cadet is a 21 yoF with multiple recent asthma exacerbations who presented with persistent sob and hypoxia secondary to status asthmaticus in the setting of baseline severe persistent asthma. Also diagnosed with multifocal pneumonia and anemia. Acute Hypoxic Respiratory Failure secondary to status asthmaticus - improving - pulmonary consulted. Recommendations: - Switched to Prednisone 50mg daily from Solumedrol 40mg IV q8h - Continue oxygen weaned to 1L today, maintain sats >92% - Continue Xopenox nebs q6h - Started on Advair 250/50 1 puff BID in preparation for discharge - TSH nl at 2.680 - polysomnography as outpatient - pulm signed off 02/27, ready for d/c with follow up in 1-2 wks outpatient - ECHO: normal - no diastolic dysfunction or pulmonary HTN - Vitamin D 6.9 - started on ergocalcoferol 50,000 units 2x/week (order next dosage due on 03/02; upon discharge order 2x/week x 8 weeks total) - anti- inflammatory and correlated with poor asthma -encourage ambulation and IS use Allergic rhinitis - Continue cetirizine qam - Continue Singulair 10mg qPM Multifocal pneumonia - continue levaquin 750mg PO - day 07/14 - D/c if RSV positive - negative for influenza, RSV pending Dysfunctional Uterine Bleeding - ?possibly PCOS given metabolic syndrome, obesity & irregular menstrual cycle - HbA1c = 5.6, likely secondary to custodial steroid use - would benefit from switching OCP to a higher dose in outpatient setting - nutrition consulted for diet/weight loss counseling Tachycardia - resolved - Likely from Albuterol & secondary to hypoxia/infection - PE ruled out Anemia - improving/stable - Hgb 11.3 and MCV 70 - Iron low at 18 and TIBC 465 - Continue 325mg BID of iron - likely secondary to DUB Headache - improved - sumatriptan and tylenol PRN for pain relief Dispo: likely tomorrow once further improved clinically and off O2 Code status: Full. VTE: Lovenox Resident Physician Supervision Note: I was present with PGY1 Dr. Matt Madsen during the history and exam. I discussed the case with the resident and agree with the findings and plan as documented in the note. Any exceptions or clarifications are listed here: none. Pt feeling "really good". WITT is improved but still desatting w/ activity. Cough improved. VSS gen - no distress heart - RRR, s1, s2, no murmur lungs - improved wheezing and air movement b/l today, no rales, no increased wob ext - no edema, pulses 2+ b/l A/P: 1. acute hypoxic resp failure 2nd to status asthmaticus - improved, nearly off O2. Agree w/ PO steroids. taper o2 off as tolerated. Echo w/o any source for hypoxia. 2. severe persistent asthma at baseline - start advair 250/50 1 puff BID. Cont singulair; appreciate pulmonary consult; will need outpatient PFTs, allergy testing, etc after d/c. 3. severe asthma exacerbation - as above 4. hyperglycemia, acanthosis - a1c nearly in pre-DM range; FSBS have been stable; can d/c the fingersticks; received nutritional counseling this admission 5. microcytic anemia - due to severe Fe Def anemia - likely from DUB; Fe supplement BID; likely contributing to restless legs 6. b/l lower lobe pneumonia - levaquin; flu neg; awaiting RSV; complete 10 days of Rx 7. vit D def - severe - ergocalciferol x 8 weeks wean O2 as tolerated can transfer to med/surg Documented By: Jorje Maurer MD Resident Involvement: Resident Care Provided Care Provided: [facility]
--- NOTE | 2017-02-27 16:00 | NUR ---
A: Assessment complete and documented. VS WNL. Pt on RA at this time. SR per tele. Lungs dim with scattered exp wheezes. No complaints or s/s of acute distress noted. Call waite within reach. Will continue to monitor. See emr.
--- NOTE | 2017-02-27 18:23 | NUR ---
A: Pt arrived to room 287-2. Pt is A&Ox4 and ambulatory. Denies SOB at this time. O2 sat 94% on RA. Lungs are diminished in the bases. No wheezes at this time. Pt denies pain at rest. All belongings with patient. Family at bedside. Will continue to monitor.
[2017-02-27] MEDS: FLUTICASONE/SALMETEROL 250/50 (ADVAIR) 14 PUFF/1 INHALER INH SCH (20:35)
[2017-02-27] MEDS: MONTELUKAST SOD 10 MG TAB PO SCH (20:35)
[2017-02-27] MEDS: ENOXAPARIN 40 MG/0.4 ML SYR SC SCH (20:36)
[2017-02-28] VITALS (7 sets, daily range): BP systolic 99–129; BP diastolic 63–78; PULSE 67–102; TEMP 36.6–37.1; O2SAT 90–94
[2017-02-28] MEDS: LEVALBUTEROL 0.63MG/3 ML NEB INH SCH ×3 (01:56→14:30)
[2017-02-28 08:00] LABS: CREATININE 0.69 mg/dl (0.60-1.20)
[2017-02-28] MEDS: FLUTICASONE/SALMETEROL 250/50 (ADVAIR) 14 PUFF/1 INHALER INH SCH (08:00)
[2017-02-28] MEDS: FERROUS SULFATE 325 MG TAB PO SCH (08:00)
[2017-02-28 08:01] LABS: CALCIUM 8.6 mg/dl (8.5-10.1); POTASSIUM 3.5 mmol/L (3.5-5.1)
[2017-02-28] MEDS: CETIRIZINE HCL 10 MG TAB PO SCH (08:01)
--- NOTE | 2017-02-28 09:57 | NUR ---
a:alert and oriented x 4. lungs are clear, using the spirometer. heart rate is regular. abdomen is soft, nontender, nondistended with positive bowel sounds. skin is pink,warm,dry, and intact. pt has a saline lock at this time. no c/o pain or discomfort. positive radial and pedal pulses. resting in bed at this time.
[2017-02-28] MEDS: LEVOFLOXACIN 750 MG TAB PO SCH (11:11)
--- NOTE | 2017-02-28 13:32 | NUR ---
a:ambulated with the patient for 5 minutes on room air. after 1 minute during ambulation Spo2 had decreased to 89%, then returned to 91-92%. Then from the 3-5 minutes, her spo2 had remained 93-95%. No s/s of dizziness, lightheadedness, weakness, or any abnormality. respirations 20-24 during the ambulation and discussion. mild cough, but controlled, and dry, nonproductive. no c/o pain or discomfort. resting in bed at this time. Heart rate was 90's to 110 during the ambulation. Addendum: 02/28/17 at 1338 by Ember Castillo RN a: aware of the above information.
[2017-02-28] MEDS ORDERED: ADVIN25050 INH (13:44)
[2017-02-28] MEDS ORDERED: LVQ750 PO (13:44)
[2017-02-28] MEDS ORDERED: SNG10 PO (13:44)
[2017-02-28] MEDS ORDERED: ALBINS/ INH (13:44)
[2017-02-28] MEDS ORDERED: NEBMAC (13:44)
[2017-02-28] MEDS ORDERED: PRD50 PO (13:44)
[2017-02-28] MEDS ORDERED: FRRS300 PO (13:44)
[2017-02-28] MEDS ORDERED: ERGO500037 PO (13:44)
--- NOTE | 2017-02-28 13:59 | Discharge Instructions ---
Discharge Instructions Date of Service Feb 28, 2017. Admission Reason for Admission: Asthma Exacerbation, Sirs, Failure Of Outpatient.. Discharge Discharge Diagnosis / Problem: Asthma Exacerbation Discharge Goals Goal(s): Improve function, Improve disease control, Learn about illness, Therapeutic intervention Activity Recommendations Activity Limitations: per Instructions/Follow-up section . Instructions / Follow-Up Instructions / Follow-Up During this visit you were treated for an asthma exacerbation. You have been given prescriptions for singulair, advair, qvar, and home nebulization machine. We recommend follow up with your primary care provider in the next week. If you do not have a primary care provider, the office we are associated with is the [facility] clinic at the [facility] office site. We are accepting new patients, and the number to schedule an appointment for a hospital follow up is as follows: [phone] We may have a nurse follow up with you to ensure an appointment has been made, either with your own PCP or one of ours. You will also be scheduled for a follow up appointment with the pulmonologists ( lung doctors). You may have already been given information regarding this appointment. Please attend. During this visit you were found to have low Vitamin D. You will be required to take 2 tablets of high dose vit D per week for 8 weeks. This medication has been sent to your pharmacy. Take the next dose on March 02. You were also being treated for an infection in the lungs. You are due for 1 more day of antibiotics tomorrow, which has been sent to your pharmacy. You will also need to take a tapered course of steroids for the next 12 days. Please take according to the directions on your prednisone prescription. Current Hospital Diet Patient's current hospital diet: AHA Diet (Heart Healthy) Discharge Diet Recommended Diet: Regular Diet Pending Studies Studies pending at discharge: no Laboratory Results Hemoglobin A1c Test 02/25/17 05:40 Range/Units Estimated Average Glucose 114 mg/dl Hemoglobin A1c 5.6 4.5-5.6 % Medical Emergencies . Who to Call and When: Medical Emergencies: If at any time you feel your situation is an emergency, please call 911 immediately. . Non-Emergent Contact Non-Emergency issues call your: Primary Care Provider . . "Provider Documentation" section prepared by Hortencia Meneses. . VTE Core Measure Inpt VTE Proph given/why not?: Enoxaparin (Lovenox)SQ
--- NOTE | 2017-02-28 14:45 | NUR ---
TWO STEP EXERCISE PERFORMED BY RT. PT DOES NOT QUALIFY FOR HOME O2.
--- NOTE | 2017-02-28 15:45 | NUR ---
Patient discharged home. IV site not in at time of discharge. Discharge instructions, medications and follow ups discussed with the patient. All belongings packed. Patient walked out with male friend.
--- NOTE | 2017-02-28 23:30 | Discharge Summary ---
Discharge Summary Date of Service Feb 28, 2017. Discharge Summary Admission Date: Feb 23, 2017 at 15:42 Discharge Date: Feb 28, 2017 Discharge Disposition: Home Principal Diagnosis: Acute hypoxic respiratory failure 2/2 status asthmaticus Problems/Secondary Diagnoses: Severe persistent asthma, hyperglycemia, microcytic anemia 2/2 severe iron deficiency, bilateral lower lobe pneumonia, vitamin D deficiency, chronic headaches Immunizations: Have You Had Influenza Vaccine: Unknown History of Tetanus Vaccine?: Unknown History of Pneumococcal: Unknown History of Hepatitis B Vaccine: Unknown Procedures: 1. CTA chest: IMPRESSION: 1. No evidence for pulmonary embolus with limitations as described above. 2. A few scattered patchy groundglass airspace opacities within the lungs most pronounced within the lower lobes. This favors a multifocal pneumonia. 2. echocardiogram: normal LV function, normal valves, no pulmonary HTN. Consultations: Pulmonology dietary/nutrition Medication Reconciliation New Medications: Albuterol Sulf (Proventil 0.083% 2.5MG/3ML) 2.5 Mg/3 Ml Nebu 2.5 MG INH QID PRN for Shortness of Breath for 30 Days, #120 EA Ergocalciferol (Vitamin D 63507 Unit) 50,000 Unit Cap 1 CAP PO TW for 56 Days, #16 CAP 0 Refills Nebulizer Machine (Home Use) (Nebulizer Machine (Home Use) ) Mis EA N/A UD, #1 Ferrous Sulfate (Ferrous Sulfate) 325 Mg Tab 325 MG PO BIDM for 30 Days, #60 TAB Fluticasone Prop/Salmeterol (Advair Diskus 250-50 Mcg/Dose) 14 Puff/1 Inhaler Aerp 1 PUFF INH BID for 30 Days, #1 INHALER Levofloxacin (Levofloxacin) 750 Mg Tab 750 MG PO DAILY@11 for 1 Day, #1 TAB Montelukast Sod (Montelukast Sodium) 10 Mg Tab 10 MG PO HS for 30 Days, #30 TAB Prednisone (Prednisone) 50 Mg Tab 10 MG PO DAILY for 12 Days, #30 TAB Take 4 tablets for 3 days, then Take 3 tablets for 3 days, then Take 2 tablets for 3 days, then Take 1 tablet for 3 days Continued Medications: Albuterol Hfa (Ventolin Hfa) 200 Puffs/33955 Mcg Aers 2 PUFF INH QID PRN for SOB/Wheezing, #1 INHALER 1 Refill Ascorbic Acid (Vitamin C) 500 Mg Cap 1 TAB PO DAILY B-Complex Vitamins (Vitamin B Complex) 1 Tab Tab 1 TAB PO DAILY Echinacea (Echinacea) Unknown Strength Cap 1 TAB PO DAILY Levocetirizine Dihydrochloride (Xyzal Allergy 24Hr) 5 Mg Tab 5 MG PO DAILY Discontinued Medications: Doxycycline Monohydrate (Monodox) 100 Mg Cap 100 MG PO BID for 10 Days, #20 CAP Prednisone (Prednisone) 50 Mg Tab 50 MG PO DAILY for 5 Days, TAB Discharge Exam Physical Exam: General Appearance: no apparent distress Eyes: normal inspection Respiratory/Chest: + decreased breath sounds (improved aeration since yesterday ), + wheezing (end-inspiratory improved since yesterday) Cardiovascular: regular rate, rhythm, no murmur Abdomen: normal bowel sounds, non tender, soft Extremities: non-tender, no pedal edema Review of Systems: Constitutional: No fever, No chills, No sweats, No weight loss, No weakness , No fatigue, No problem reported Respiratory: + cough, + sputum, + wheezing Cardiovascular: No chest pain, No orthopnea, No PND, No edema, No claudication, No palpitations, No problem reported Abdomen: No pain, No nausea, No vomiting, No diarrhea, No constipation, No GI bleeding, No problem reported Musculoskeletal: No joint pain, No muscle pain, No swelling, No calf pain, No problem reported Genitourinary - Female: No dysuria Neurologic: No memory loss, No paralysis, No weakness, No numbness/tingling , No vertigo, No balance problems, No problem reported Hospital Course Harry is a 21 year old asthmatic female who presented with severe shortness of breath. She presented to the ED, received an hour long nebulizer, steroids IV and was discharged home. She tried to sleep but was unable to and felt her breathing was worsening so she returned to the ED. She has visited the ED monthly since October with asthma exacerbations. She has never been intubated but has required PO steroids for about a week each time, most recently a month ago. She does not have a electrical calibrator locally. Also found to have a multifocal pneumonia on CTA Acute Hypoxic Respiratory Failure secondary to status asthmaticus - improving - Switched to Prednisone 50mg daily from Solumedrol 40mg IV q8h - Taper over 12 days (decrease by 10 q3 days) - Started on Advair 250/50 1 puff BID in preparation for discharge. Patient to take home advair; should last about 1 month. Will need to check with insurance to see if she will be able to afford from here on out - polysomnography as outpatient recommended - pulm to follow up in 1-2 wks outpatient; appointment already scheduled - Vitamin D 6.9 - started on ergocalcoferol 50,000 units 2x/week 8 weeks: follow labs as outpatient recommended Allergic rhinitis - Continue xyzal - Continue Singulair 10mg qPM - Recommend discussing cost with patient as outpatient Multifocal pneumonia - continue levaquin x 1 more day (total of 7 days) - negative for influenza, RSV pending, procalcitonin <0.05 Dysfunctional Uterine Bleeding - ?PCOS given metabolic syndrome, obesity & irregular menstrual cycle - HbA1c = 5.6, likely secondary to fdc steroid use - would benefit from switching OCP to a higher dose in outpatient setting Microcytic Anemia 2/2 Iron deficiency- improving/stable - Hgb 11.3 and MCV 70 - Iron low at 18 and TIBC 465 - Continue 325mg BID of iron - likely secondary to DUB Headache - improved - sumatriptan and tylenol PRN for pain relief - would like to discuss receiving migraine medications as outpatient. Resident Physician Supervision Note: I was present with PGY1 Dr. Hortencia Meneses during the discharge history and exam. I discussed the case with the resident and agree with the findings and plan as documented in the discharge summary. Any exceptions or clarifications are listed here: none. 21yo female with severe, persistent asthma who presented with status asthmaticus resulting in acute hypoxic respiratory failure. She had evidence of b/l lower lobe pneumonia on CT chest at presentation. She was initially treated with high-flow NC oxygen, high-dose IV steroids, antibiotics, and nebs. She made gradually improvement over several days and oxygen was weaned off prior to discharge. She was seen in consult by pulmonary for additional recommendations regarding her poorly controlled asthma. Outpatient pulmonary follow-up was arranged at discharge; PFTs, allergy testing , etc will be considered. At discharge she will complete a slow prednisone taper and 1 additional day of antibiotics. She was started on advair in jael of Qvar and singulair was also initiated. Other issues addressed - hyperglycemia (she is borderline pre-diabetic), severe iron deficiency, and severe vitamin D deficiency. Discharge exam - gen - obese, NAD neck - no JVD, acanthosis nigricans heart - RRR, s1, s2 lungs - good airation, mild end-exp wheeze b/l, no increased work of breathing abd - soft, NT, ND ext - no edema Jorje Maurer MD Documented By: Jorje Maurer MD Total Time Spent: Greater than 30 minutes This includes examination of the patient, discharge planning, medication reconciliation, and communication with other providers. Discharge Instructions Please refer to the electronic Patient Visit Report (Discharge Instructions) for additional information. Follow-Up [facility] Pulmonology - TuesdayMarch 04 at 9:00 am with Savita Harper PCP - [facility] - within 1 week Additional Copies To Savita Wallace PA-C; [facility] Resident Tracking Resident Involvement: Resident Care Provided Care Provided: Adult Hospital Medicine
--- NOTE | 2017-03-02 11:37 | NUR ---
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 call placed to pts contact number but no answer. left a message with contact information and asked her to return call regarding PCP appointment. pt already has an appointment scheduled with pulmonology for Sunday 03/04 at 9:00 AM and was provided with the number for the [facility] clinic which reopens March 08.
--- NOTE | 2017-03-02 12:44 | NUR ---
government relations analyst [facility]: The pt calls back and confirms the appt w/ Savita Wallace PA-C on TuesdayMarch 04. She will follow up with [facility] after they open on March 08. She denies the need to have a visit w/ a PCP in the community. She tells me she is feeling much better.
[2017-11-02] MEDS ORDERED: ERGO500037 PO (09:51)
[2017-11-03] MEDS ORDERED: AZIT250T PO (12:44)
[2017-11-03] MEDS ORDERED: PRED10TA PO (12:44)
[2017-11-03] MEDS ORDERED: MONT1TAB3 PO (12:56)
== END 2017-02-28 15:54 | disposition home or self-care (01) | DRG 193 ==
LOC: C.EDB 13:01 → C.2T 15:42 → ENRESERV 16:04 → C.MED 02-27 18:16
PROVIDERS: ADMIT Internal Medicine; ATTEND Internal Medicine
DX: J18.9 Pneumonia, unspecified organism (principal); J96.01 Acute respiratory failure with hypoxia; J45.52 Severe persistent asthma with status asthmaticus; E66.2 Morbid (severe) obesity with alveolar hypoventilation; Z68.41 Body mass index [BMI] 40.0-44.9, adult; R73.9 Hyperglycemia, unspecified; T38.0X5A Adverse effect of glucocorticoids and synthetic analogues, initial encounter; R73.03 Prediabetes; R00.0 Tachycardia, unspecified; T48.6X5A Adverse effect of antiasthmatics, initial encounter; D50.9 Iron deficiency anemia, unspecified; E55.9 Vitamin D deficiency, unspecified; R51 Headache; E28.2 Polycystic ovarian syndrome; L83 Acanthosis nigricans; N93.8 Other specified abnormal uterine and vaginal bleeding; E88.81 Metabolic syndrome and other insulin resistance; Z91.048 Other nonmedicinal substance allergy status; Z23 Encounter for immunization; Z79.3 Long term (current) use of hormonal contraceptives; Z79.51 Long term (current) use of inhaled steroids; Z79.52 Long term (current) use of systemic steroids; Z79.899 Other long term (current) drug therapy

== ENCOUNTER 2022-03-28 05:57 | Inpatient (IN) ==
[2022-03-28] MEDS ORDERED: OXYTOCIN 30 UNITS/500 ML BAG IV PRN ×2 (06:37→11:45)
[2022-03-28] MEDS ORDERED: LIDOCAINE 1% LOCAL 20 ML VIAL INFIL PRN (06:37)
[2022-03-28 07:12] LABS: Hematocrit (blood only) 39.3 % (34.1-44.9); Hemoglobin 12.8 g/dl (12.0-16.0); Mean Corpuscular Hemoglobin 24.7 pg (25.0-34.0); Mean Corpuscular Hgb Conc 32.6 g/dL (32.0-36.0); Mean Corpuscular Volume 75.9 fL (80.0-100.0); Mean Platelet Volume 11.2 fL (9.4-12.3); Platelet Count 168 K/uL (130-400); RDW Standard Deviation 40.9 fL (36.4-46.3); Red Blood Count 5.18 M/uL (3.93-5.22); White Blood Count 9.45 K/ul (4.8-10.8)
[2022-03-28] MEDS: LACTATED RINGER'S 1,000 ML IV PRN ×2 (07:12→10:28)
[2022-03-28] MEDS ORDERED: fentaNYL citrate 100 MCG/2 ML VIAL ONE (07:23)
[2022-03-28] MEDS ORDERED: SODIUM CHLORIDE 0.9% INJ 10 ML VIAL ONE (07:23)
[2022-03-28] MEDS ORDERED: BUPIVACAINE 0.25% 30 ML VIAL ONE (07:23)
[2022-03-28] MEDS ORDERED: LIDOCAINE 2%/EPINEPHRINE 1:200,000 20 ML SDV ONE (07:23)
[2022-03-28] MEDS ORDERED: ePHEDrine sulfate 50 MG/ML AMP ONE (07:23)
[2022-03-28] MEDS ORDERED: fentaNYL 2MCG/ML ROPIVACAINE 1.25MG/ML 100 ML BAG EPI ONE (07:25)
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
--- NOTE | 2022-03-28 08:22 | Labor Progress Brief Note ---
Date of Service March 28, 2022 Subjective Comfortable with epidural. FHT Cat 1 [place] Q 2-3 SVE 7/100/-2 AROM thick meconium. Will test RPR - discussed with lab, if + result will automatically reflex to titer. Results & Data ([facility]) Vital Signs (Past 12 Hours) Vital Signs Temp Pulse Resp BP Pulse Ox 03/28/22 08:19 90 98 03/28/22 08:18 72 146/75 H 03/28/22 08:16 100 H 142/72 H 03/28/22 08:14 78 129/78 99 03/28/22 08:12 79 133/68 03/28/22 08:10 68 131/81 03/28/22 08:09 69 100 03/28/22 08:08 75 145/70 H 03/28/22 08:05 71 148/98 H 03/28/22 08:03 76 99 03/28/22 08:04 80 143/92 H 03/28/22 08:01 82 153/97 H 03/28/22 08:00 77 151/97 H 03/28/22 07:59 75 99 03/28/22 07:58 78 163/98 H 03/28/22 07:54 89 99 03/28/22 07:21 36.4 C L 75 20 131/95 03/28/22 06:08 85 139/87 03/28/22 06:11 36.6 C 18 Coding Level of Care Code None
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
[2022-03-28] MEDS ORDERED: fentaNYL 2MCG/ML ROPIVACAINE 1.25MG/ML 100 ML BAG EPI PRN (08:25)
[2022-03-28] MEDS ORDERED: NALBUPHINE HCL INJ 10 MG/ML AMP IV PRN (08:25)
[2022-03-28] MEDS ORDERED: ePHEDrine sulfate 50 MG/ML AMP IV PRN (08:25)
[2022-03-28] MEDS ORDERED: diphenhydrAMINE 50 MG/ML VIAL IV PRN (08:25)
[2022-03-28] MEDS ORDERED: NALOXONE HCL 0.4 MG/1 ML VIAL/CARP IV PRN (08:25)
[2022-03-28] MEDS ORDERED: ONDANSETRON INJ 2 MG/ML 2 ML VIAL IV PRN (08:25)
[2022-03-28] MEDS ORDERED: NALOXONE HCL 1 MG in SODIUM CHLORIDE 0.9% 1000ML 1,000 ML IV PRN (08:25)
--- NOTE | 2022-03-28 11:48 | Communication Note ---
Date of Service: March 28, 2022 Met patient and FOB in room earlier this morning after assuming care at 0830. Spontaneous labor with AROM by previous on-call MD, comfortable with epidural. Patient has had interim cervical checks with Shirin Thomas RN, and although cervical dilation has remained 8cm, she notes the head is beginning to descend between last two exams. FHT Cat 1 with some early decels, good variability and accels noted. [place] is spaced apart now with Ctx Q5. As I discussed with patient during our earlier meeting, we can use pitocin to augment labor if it slows, and I would recommend that at this time seeing the toco and the lack of change in dilation. Order placed and communicated to TIARA Thomas.
[2022-03-28] MEDS ORDERED: NURSING L&D Epidural Breakthrough Pain Update ONE (14:44)
--- NOTE | 2022-03-28 14:49 | Labor Progress Brief Note ---
Date of Service March 28, 2022 Subjective Feeling rectal pressure with and in between contractions. Assessment & Plan (1) Normal labor: Plan: Continue augmentation with pitocin, epidural, anticipate . (2) Obesity affecting : (3) Hypothyroid in , antepartum: (4) Syphilis (acquired): Physical Exam Genitourinary: Anterior lip /100/0 FHT Cat 1 with early decels, good variability and accels [place] Q2-3 Continues with mec fluid / appropriate bloody show Results & Data ([facility]) Vital Signs (Past 12 Hours) Vital Signs Temp Pulse Resp BP Pulse Ox 03/28/22 14:44 75 100 03/28/22 14:38 79 99 03/28/22 14:33 92 H 99 03/28/22 14:31 85 132/84 03/28/22 14:29 97 H 145/77 H 03/28/22 14:28 91 H 98 03/28/22 14:24 78 98 03/28/22 14:19 95 H 99 03/28/22 14:13 85 99 03/28/22 14:09 86 98 03/28/22 14:03 91 H 99 03/28/22 14:01 93 H 132/74 03/28/22 13:58 94 H 98 03/28/22 13:54 93 H 98 03/28/22 13:48 82 96 03/28/22 13:46 86 146/70 H 03/28/22 13:43 88 99 03/28/22 13:39 100 H 98 03/28/22 13:33 86 99 03/28/22 13:31 94 H 137/83 03/28/22 13:28 85 97 03/28/22 13:24 85 99 03/28/22 13:18 76 100 03/28/22 13:16 80 137/75 03/28/22 13:15 96 H 91 03/28/22 13:14 81 98 03/28/22 13:09 82 98 03/28/22 13:04 75 98 03/28/22 13:01 76 141/77 H 03/28/22 12:58 83 99 03/28/22 12:53 79 99 03/28/22 12:48 79 98 03/28/22 12:45 92 H 131/79 03/28/22 12:43 84 98 03/28/22 12:39 81 98 03/28/22 12:34 77 98 03/28/22 12:30 87 139/83 03/28/22 12:28 83 98 03/28/22 12:23 81 99 03/28/22 12:18 81 99 03/28/22 12:15 85 139/79 03/28/22 12:14 75 100 03/28/22 12:08 90 99 03/28/22 12:04 80 99 03/28/22 12:01 75 135/67 03/28/22 11:59 90 99 03/28/22 11:54 75 99 03/28/22 09:45 18 03/28/22 09:45 18 03/28/22 11:15 18 03/28/22 11:15 18 03/28/22 09:15 16 03/28/22 09:15 16 03/28/22 11:48 79 100 03/28/22 11:46 80 128/60 03/28/22 11:44 78 100 03/28/22 11:38 76 99 03/28/22 11:34 76 100 03/28/22 11:32 73 129/63 03/28/22 11:29 66 99 03/28/22 11:23 70 99 03/28/22 11:20 76 146/71 H 03/28/22 11:19 72 99 03/28/22 11:14 82 98 03/28/22 11:08 80 100 03/28/22 11:04 90 100 03/28/22 11:02 77 149/60 H 03/28/22 10:59 72 99 03/28/22 10:54 71 99 03/28/22 10:49 76 100 03/28/22 10:46 74 150/77 H 03/28/22 10:44 69 100 03/28/22 10:39 69 100 03/28/22 10:33 82 98 03/28/22 10:30 76 135/80 90 03/28/22 10:29 71 99 03/28/22 10:26 67 130/73 03/28/22 10:23 100 03/28/22 10:23 66 03/28/22 10:23 73 93 03/28/22 10:19 64 99 03/28/22 10:15 85 18 124/98 03/28/22 10:14 73 97 03/28/22 10:09 73 98 03/28/22 10:04 91 03/28/22 10:04 74 03/28/22 10:04 68 100 03/28/22 10:01 76 138/78 03/28/22 09:59 76 98 03/28/22 09:57 80 93 03/28/22 09:54 71 100 03/28/22 09:49 71 100 03/28/22 09:47 71 131/85 03/28/22 09:44 74 99 03/28/22 09:39 63 100 03/28/22 09:33 70 99 03/28/22 09:31 71 134/78 03/28/22 09:28 71 98 03/28/22 09:24 94 H 100 03/28/22 09:21 81 88 L 03/28/22 09:19 69 100 03/28/22 09:16 63 129/66 03/28/22 09:14 63 100 03/28/22 09:09 65 100 03/28/22 09:04 73 100 03/28/22 08:59 73 100 03/28/22 08:53 68 100 03/28/22 08:49 74 100 03/28/22 08:45 81 18 136/69 03/28/22 08:43 70 99 03/28/22 08:44 71 127/60 03/28/22 08:39 70 03/28/22 08:39 80 134/70 100 03/28/22 08:15 18 03/28/22 08:15 18 03/28/22 08:34 69 131/70 100 03/28/22 08:30 74 126/81 03/28/22 08:28 83 100 03/28/22 08:24 73 99 03/28/22 08:23 75 130/72 03/28/22 08:22 73 123/62 03/28/22 08:20 88 18 146/67 H 03/28/22 08:19 90 98 03/28/22 08:18 72 146/75 H 03/28/22 08:16 100 H 142/72 H 03/28/22 08:14 78 129/78 99 03/28/22 08:12 79 133/68 03/28/22 08:10 68 20 131/81 03/28/22 08:09 69 100 03/28/22 08:08 75 145/70 H 03/28/22 08:05 71 148/98 H 03/28/22 08:03 76 99 03/28/22 08:04 80 143/92 H 03/28/22 08:01 82 153/97 H 03/28/22 08:00 77 151/97 H 03/28/22 07:59 75 99 03/28/22 07:58 78 163/98 H 03/28/22 07:54 89 99 03/28/22 07:21 97.5 F L 75 20 131/95 03/28/22 06:08 85 139/87 03/28/22 06:11 97.9 F 18 Coding Level of Care Code None Diagnoses Normal labor O80; Z37.9 Obesity affecting O99.210 Hypothyroid in , antepartum O99.280; E03.9 Syphilis (acquired) A53.9
--- NOTE | 2022-03-28 17:03 | Delivery Summary ---
Vaginal Delivery Summary Date of Service March 28, 2022 Vaginal Delivery Summary DIAGNOSES: 1. Gallego intrauterine at 39w3d gestation. 2. Spontaneous onset of labor. 3. Group B Streptococcus Neg 4. Syphilis affecting . PROCEDURE: Spontaneous vaginal delivery without laceration. SURGEON: Savita Gar MD. MONONITROTOLUENE OPERATOR: None. ESTIMATED BLOOD LOSS: 250 mL. COMPLICATIONS: None. PLACENTA: Spontaneous and intact with a 3-vessel cord. DISPOSITION: Stable to labor and delivery. DESCRIPTION: The patient pushed well and brought the head to in OA position. The infant's head was allowed to deliver with contraction force and no further active pushing, with the perineum protected during this time. There was a double nuchal cord reduced at the perineum. The left shoulder was anterior upon initial restitution, however there was a shoulder dystocia; this lasted 65 seconds, and was resolved using both Negra position and Castaneda' Screw maneuver, thus the infant ultimately delivered with the R shoulder anterior (and was found to have a R arm compound presentation, with the R arm in full flexion along the chest and the R hand alongside the R shoulder/chin. The body delivered without any difficulty, and the was placed on the maternal abdomen. It was initially limp without respiratory effort and was moved quickly to the warmer for resuscitation, after the cord was doubly clamped by the MD and then cut. The placenta delivered spontaneously and was noted to be intact and with a 3VC. The cervix, vagina and perineum were examined and were found to be without defect requiring repair. The fundus was firm and lochia minimal immediately after delivery. Resuscitation was quickly effective and initial Apgars were 7/9. [facility] Vaginal Delivery Charge Vaginal Delivery Codes: 31100 global code for the antepartum, delivery, and post-
[2022-03-28] MEDS ORDERED: DIPHTHERIA/TETANUS/PERTUSSIS 0.5mL SYR/VIAL (Age 7+yrs) IM ONE (17:14)
[2022-03-28] MEDS ORDERED: oxyCODONE/ACETAMINOPHEN 5mg/325mg TAB PO PRN (17:14)
[2022-03-28] MEDS ORDERED: HYDROCORTISONE ACETATE 25 MG SUPP PR PRN (17:14)
[2022-03-28] MEDS ORDERED: ACETAMINOPHEN 325 MG TAB PO PRN (17:14)
[2022-03-28] MEDS ORDERED: ALBUTEROL HFA 8 GM INHALER INH PRN (17:14)
[2022-03-28] MEDS ORDERED: BENZOCAINE 20% AER SPR 82.5 GM CAN EXT PRN (17:14)
[2022-03-28] MEDS ORDERED: ALBUTEROL 0.083% NEBU SOLN 3 ML VIAL INH PRN (17:14)
--- NOTE | 2022-03-28 18:20 | Anesthesia Procedure Note ---
Date of Service March 28, 2022 Anesthesia Post Epidural Note Vital Signs Vital Signs: Temp Pulse Resp BP Pulse Ox 36.6 C 90 22 148/89 H 90 03/28/22 16:30 03/28/22 18:12 03/28/22 16:30 03/28/22 18:12 03/28/22 16:57 Pain Intensity Lower Abdomen: Pain Intensity: 0 Notes Mental Status: alert / awake / arousable Nausea / Vomiting: adequately controlled Pain: adequately controlled Airway Patency, RR, SpO2: stable & adequate BP & HR: stable & adequate Hydration State: stable & adequate Neuraxial Anesthesia: was administered and sensory block is resolving Anesthetic Complications: no major complications apparent and Pt Satisfied with anesthetic care Epidural: Removed without complications and With tip intact
[2022-03-28] MEDS: IBUPROFEN 600 MG TAB PO PRN ×2 (18:26→22:41)
[2022-03-28] MEDS: DOCUSATE SODIUM 100 MG CAP PO SCH (21:01)
[2022-03-29] MEDS: FLUTICASONE HFA 110MCG INHALER INH SCH ×2 (01:30→08:07)
[2022-03-29 06:07] LABS: Rapid Plasma Reagin Reactive (Nonreactive)
[2022-03-29] MEDS ORDERED: LEVOTHYROXINE SODIUM 175 MCG TABLET PO SCH (06:30)
[2022-03-29 06:33] LABS: Hematocrit (blood only) 35.8 % (34.1-44.9); Hemoglobin 11.8 g/dl (12.0-16.0); Mean Corpuscular Volume 75.8 fL (80.0-100.0); Mean Platelet Volume 11.2 fL (9.4-12.3); Platelet Count 173 K/uL (130-400); RDW Coefficient of Variation 15.5 % (11.5-14.5); RDW Standard Deviation 42.2 fL (36.4-46.3); Red Blood Count 4.72 M/uL (3.93-5.22); White Blood Count 16.61 K/ul (4.8-10.8)
--- NOTE | 2022-03-29 07:02 | Obstetrical Progress Note ---
Date of Service March 29, 2022 Assessment & Plan (1) state: Recovering well from vaginal delivery, no issues today. RPR / Titer stable at 1:2. Patient notes she would like to go home today, and is OK from the maternal standpoint to do so; await confirmation from peds that baby is OK to go today, and can then put in discharge order. Subjective Ambulation: ambulating normally Voiding: no voiding problems Passing Gas:: Yes Diet Tolerance:: regular diet Lochia:: Small Feeding Type:: breast feeding Physical Exam Constitutional WD/WN, vitals as above Eyes PERRL, conjunctivae normal, anicteric sclerae Neck normal visual inspection Respiratory normal respiratory effort and able to speak in complete sentences; no respiratory distress and no labored breathing Cardiovascular Rate/Rhythm: regular rate and regular rhythm Extremities: no edema Chest (Breasts) Chest: normal inspection of chest Gastrointestinal (Abdomen) Inspection/Auscultation: abdomen normal to inspection Soft, postgravid Psychiatric A+Ox3, euthymic affect Genitourinary OB Exam Abdomen: + fundal height Fundus: + firm and + relation to umbilicus (f undus just below umbilicus); not tender Results & Data ([facility]) Vital Signs (Past 12 Hours) Vital Signs Temp Pulse Pulse Resp BP BP 03/29/22 03:55 97.7 F 75 18 127/85 03/29/22 00:05 98.1 F 72 18 142/76 H 03/28/22 20:45 99.0 F 81 18 138/55 L 03/28/22 19:10 18 03/28/22 19:11 85 122/69
[2022-03-29] MEDS ORDERED: PRENATAL VITAMIN 1 TAB PO SCH (08:00)
[2022-03-29] MEDS: DOCUSATE SODIUM 100 MG CAP PO SCH (08:06)
[2022-03-29] MEDS: IBUPROFEN 600 MG TAB PO PRN (08:06)
== END 2022-03-29 19:40 | disposition home or self-care (01) | DRG 806 ==
LOC: OPB 05:57 → 4S1 05:59 → 4E2 19:39